=== PATIENT | female | born 1970 | race Caucasian/White ===

== ENCOUNTER 2018-12-16 12:05 | Emergency (ER) | payer MEDICAID, OTHER ==
[~2018-12-16] VITALS: Ht 162.6 cm; Wt 99.8 kg
--- NOTE | 2018-12-16 12:15 | NUR ---
PT A/OX4, B[facility] ([facility] FROM [facility] FOR C/O BLISTER ON R FOOT. UPON ASSESSMENT, PT PRESENTS W/ A BLISTER THAT BURST OPEN. VSS. PT SPO2 RANGING FROM 95-97% ON ROOM AIR DESPITE HAVING ARRIVED ON O2 2 LPM VIA N/C. PT C/O CHRONIC GENERALIZED BODY PAIN DUE TO DZ OF RA AND FIBROMYALGIA.
--- NOTE | 2018-12-16 12:19 | NUR ---
PAGED VIP NEPHROLOGY FOR DR TO DR SALAZAR. AWAITING CALLBACK. ATTEMPT 1.
--- NOTE | 2018-12-16 12:39 | NUR ---
CALLED [facility] FOR PT'S RETURN TO [facility] PICK-UP REFUSED BY RESPRESENTATIVE DUE TO "TOO BUSY". Addendum: 12/16/18 at 1306 by INES ETHEL ARCEO
[2018-12-16] MEDS ORDERED: NEOMY/BACITRA/POLYMYXIN B OINT UD PACKET TP ONE ×2 (12:45→12:50)
[2018-12-16] MEDS ORDERED: LISI-607 PO (12:46)
[2018-12-16] MEDS ORDERED: INSU100V28 (12:46)
[2018-12-16] MEDS ORDERED: GABA-534 PO (12:46)
[2018-12-16] MEDS ORDERED: METF-442 PO (12:46)
[2018-12-16] MEDS ORDERED: OMEP40CA37 PO (12:46)
[2018-12-16] MEDS ORDERED: IRON (12:46)
[2018-12-16] MEDS ORDERED: FOLIC ACID (12:46)
[2018-12-16] MEDS ORDERED: DOCU250C14 PO (12:46)
[2018-12-16] MEDS ORDERED: IBUP-1957 PO (12:46)
[2018-12-16] MEDS ORDERED: INSULIN (12:48)
--- NOTE | 2018-12-16 13:09 | NUR ---
[facility] TRIP #[id number] ETA 1350 SPOKE W/ TEO DISPATCHER.
--- NOTE | 2018-12-16 13:53 | NUR ---
PT WILL BE D/C BACK TO [facility] VIA [facility] ([facility]).
--- NOTE | 2018-12-16 13:55 | NUR ---
Patient discharged to home in stable conditon. Written and verbal after care instructions given. Patient verbalizes understanding of instructions. ALL BELONGINGS W/ PT. PT D/C UNDER CARE OF 2 EMT'S FROM [facility].
[2018-12-16 13:56] VITALS: BP 110/62
== END 2018-12-16 13:57 | disposition home or self-care (01) ==
LOC: ER 12:05
DX: S90.821A Blister (nonthermal), right foot, initial encounter (principal); E11.9 Type 2 diabetes mellitus without complications; Z88.5 Allergy status to narcotic agent; Z88.8 Allergy status to other drugs, medicaments and biological substances; X58.XXXA Exposure to other specified factors, initial encounter; Y93.89 Activity, other specified; Y92.89 Other specified places as the place of occurrence of the external cause; Y99.8 Other external cause status
CPT/HCPCS: A4217; A4663

== ENCOUNTER 2019-02-18 10:40 | Inpatient (IN) | payer OTHER ==
[~2019-02-18] VITALS: Ht 152.4 cm; Wt 95.3 kg
[~2019-02-18 10:40] MED LIST: DOCU250C14 PO; FOLIC ACID; GABA-534 PO; IBUP-1957 PO; INSULIN; IRON; LISI-607 PO; METF-442 PO; OMEP40CA37 PO
[2019-02-18] MEDS ORDERED: IV NORMAL SALINE 1000 ML BAG IV ONE (11:00)
[2019-02-18 11:23] LABS: CARBON DIOXIDE 25 mmol/L (21-32); CHLORIDE 107 mmol/L (98-107); CREATININE 0.6 mg/dL (0.6-1.3); GLUCOSE 143 mg/dL (74-106); POTASSIUM 3.7 mmol/L (3.5-5.1); UREA NITROGEN, BLOOD 18 mg/dL (7-18)
[2019-02-18 11:28] LABS: ALANINE AMINOTRANSFERASE 27 U/L (14-59); ALKALINE PHOSPHATASE 78 U/L (50-136); ASPARTATE AMINOTRANSFERASE 18 U/L (15-37); BILIRUBIN,DIRECT 0.1 mg/dL (0.0-0.2); BILIRUBIN,TOTAL 0.3 mg/dL (0.2-1.0); LIPASE 390 U/L (73-393); TOTAL PROTEIN, SERUM 7.6 g/dL (6.4-8.2)
[2019-02-18 11:32] LABS: BASOPHILS # (AUTO) 0.1 K/uL (0.0-8.0); BASOPHILS % (AUTO) 1.1 % (0.0-2.0); EOSINOPHILS # (AUTO) 0.6 K/uL (0.0-0.7); HEMATOCRIT 38.8 % (31.2-41.9); LYMPHOCYTES # (AUTO) 1.5 K/uL (20.0-40.0); LYMPHOCYTES % (AUTO) 12.7 % (20.5-51.5); MEAN CORPUSCULAR HEMOGLOBIN 29.8 uug (24.7-32.8); MEAN CORPUSCULAR HGB CONC 34 g/dL (32.3-35.6); MEAN CORPUSCULAR VOLUME 89.1 fL (75.5-95.3); MONOCYTES # (AUTO) 0.4 K/uL (2.0-10.0); MONOCYTES % (AUTO) 3.3 % (0.0-11.0); NEUTROPHILS # (AUTO) 9.4 K/uL (1.8-8.9); NEUTROPHILS % (AUTO) 77.9 % (38.5-71.5); PLATELET COUNT (AUTO) 268 K/uL (179-408); RED BLOOD CELL COUNT(AUTO) 4.36 MIL/uL (3.63-4.92); WHITE BLOOD COUNT (AUTO) 12.1 K/uL (3.8-11.8)
[2019-02-18] MEDS ORDERED: FURO-152 PO (11:41)
[2019-02-18] MEDS ORDERED: PSYL0.4C2 PO (11:41)
[2019-02-18] MEDS ORDERED: GABA800T11 PO (11:41)
[2019-02-18] MEDS ORDERED: INSU100I26 SQ (11:41)
[2019-02-18] MEDS ORDERED: ONDA4TAB5 PO (11:41)
[2019-02-18] MEDS ORDERED: LORA10TA7 PO (11:41)
[2019-02-18] MEDS ORDERED: FOLI1TAB16 PO (11:41)
[2019-02-18] MEDS ORDERED: DOCU100C36 PO (11:41)
[2019-02-18] MEDS ORDERED: INSU100I34 SQ ×3 (11:41)
[2019-02-18] MEDS ORDERED: PRED20TA PO (11:41)
[2019-02-18] MEDS ORDERED: LEFL20TA PO (11:41)
[2019-02-18] MEDS ORDERED: MULT1TAB73 PO (11:41)
[2019-02-18] MEDS ORDERED: LISI-603 PO (11:41)
[2019-02-18] MEDS ORDERED: IBUP-1957 PO (11:41)
[2019-02-18] MEDS ORDERED: CYCL30DR EACHEYE (11:41)
[2019-02-18] MEDS ORDERED: SENN-18 PO (11:41)
[2019-02-18] MEDS ORDERED: FERR325T28 PO (11:41)
[2019-02-18] MEDS ORDERED: SIMV20TA6 PO (11:41)
[2019-02-18] MEDS ORDERED: HYDR200T81 PO (11:41)
[2019-02-18] MEDS ORDERED: OMEP20TA5 PO (11:41)
[2019-02-18] MEDS ORDERED: METF-442 PO (11:41)
[2019-02-18] MEDS ORDERED: ATOR40TA PO (11:41)
[2019-02-18] MEDS ORDERED: LACT10SO6 PO (11:41)
[2019-02-18] MEDS ORDERED: DIPH25CA83 PO (11:41)
[2019-02-18] MEDS ORDERED: METH2.5T PO (11:41)
[2019-02-18] MEDS ORDERED: TRAZ-182 PO (11:41)
[2019-02-18] MEDS ORDERED: BISA10SU61 RC (11:46)
[2019-02-18] MEDS ORDERED: MAGN400O6 PO (11:46)
[2019-02-18] MEDS ORDERED: [UNRECOGNIZED DRUG - CODE] MC (11:46)
[2019-02-18] MEDS ORDERED: NA P133E RC (11:46)
[2019-02-18] MEDS ORDERED: LACT-214 PO (11:46)
[2019-02-18] MEDS ORDERED: AMIN30LI2 PO (11:46)
[2019-02-18] MEDS ORDERED: ONDANSETRON 4 MG/2 ML VIAL ONE (12:25)
[2019-02-18] MEDS ORDERED: ONDANSETRON IV *ER 4 MG/2 ML VIAL IV ONE (12:30)
[2019-02-18 15:00] VITALS: BP 114/70
[2019-02-18] MEDS ORDERED: BISACODYL 10 MG SUPP.RECT RC PRN (16:15)
[2019-02-18] MEDS ORDERED: MAGNESIUM HYDROXIDE 30 ML LIQUID UDC PO PRN (16:30)
[2019-02-18] MEDS ORDERED: FLEET ENEMA 133 ML BOTTLE RC PRN (16:30)
[2019-02-18] MEDS ORDERED: ONDANSETRON HCL 4 MG TABLET PO PRN (16:30)
[2019-02-18] MEDS ORDERED: SENNOSIDES 1 TABLET PO PRN (16:30)
[2019-02-18] MEDS ORDERED: HOME MED MISCELLANEOUS XX SCH ×3 (16:45)
[2019-02-18] MEDS: HYDROMORPHONE 1 MG/1 ML DISP.SYRIN IV PRN (16:45)
[2019-02-18] MEDS: FERROUS SULFATE 325 MG TABEC PO SCH (17:00)
[2019-02-18] MEDS: DOCUSATE SODIUM 100 MG CAPSULE PO SCH (17:00)
[2019-02-18] MEDS: METFORMIN HCL 500 MG TABLET PO SCH (18:00)
[2019-02-18] MEDS ORDERED: BLOOD SUGAR DIAGNOSTIC 1 EACH STRIP VI SCH (18:30)
[2019-02-18] MEDS: PANTOPRAZOLE SODIUM 40 MG TABLET.DR PO SCH (20:13)
[2019-02-18] MEDS: ATORVASTATIN 40 MG TABLET PO SCH (20:14)
[2019-02-18] MEDS ORDERED: INSULIN LISPRO 300 UNIT/3 ML VIAL SQ SCH (21:00)
[2019-02-18] MEDS ORDERED: SIMVASTATIN 20 MG TABLET PO SCH (21:00)
[2019-02-18 21:14] VITALS: BP 124/51
[2019-02-18] MEDS ORDERED: IBUPROFEN 800 MG TABLET PO SCH (22:00)
[2019-02-18] MEDS ORDERED: IV 1/2NS 1000 ML 1,000 ML IV PRN (22:15)
[2019-02-18] MEDS: ONDANSETRON 4 MG/2 ML VIAL IV PRN (22:22)
[2019-02-18] MEDS: TRAZODONE 50 MG TABLET PO PRN (22:39)
[2019-02-19] MEDS: diphenhydrAMINE 25 MG CAP PO PRN (03:05)
[2019-02-19] MEDS: HYDROMORPHONE 1 MG/1 ML DISP.SYRIN IV PRN ×2 (03:18→21:07)
[2019-02-19] MEDS: ONDANSETRON 4 MG/2 ML VIAL IV PRN (04:03)
[2019-02-19 05:13] VITALS: BP 158/75
[2019-02-19] MEDS: BLOOD SUGAR DIAGNOSTIC 1 EACH STRIP VI SCH ×6 (05:15→20:58)
[2019-02-19] MEDS: IV D5 1/2 NS 1000 ML 1,000 ML IV PRN (05:26)
[2019-02-19] MEDS: PANTOPRAZOLE SODIUM 40 MG TABLET.DR PO SCH (06:43)
[2019-02-19] MEDS ORDERED: PANTOPRAZOLE SODIUM 40 MG TABLET.DR PO SCH (07:00)
[2019-02-19] MEDS ORDERED: INSULIN LISPRO 300 UNIT/3 ML VIAL SQ SCH ×2 (07:30→16:30)
[2019-02-19] MEDS: METFORMIN HCL 500 MG TABLET PO SCH ×2 (08:00→17:22)
[2019-02-19] MEDS: PROTEIN SUPPLEMENT (PROSTAT) 30 ML LIQUID PO SCH (08:00)
[2019-02-19] MEDS: predniSONE 10 MG TABLET PO SCH (08:00)
[2019-02-19] MEDS: LORATADINE 10 MG TABLET PO SCH (08:49)
[2019-02-19] MEDS: DOCUSATE SODIUM 100 MG CAPSULE PO SCH ×2 (08:50→17:00)
[2019-02-19] MEDS: HYDROXYCHLOROQUINE SULFATE 200 MG TABLET PO SCH (08:50)
[2019-02-19] MEDS: FOLIC ACID 1 MG TABLET PO SCH (08:50)
[2019-02-19] MEDS: LISINOPRIL 20 MG TABLET PO SCH (08:50)
[2019-02-19] MEDS: FERROUS SULFATE 325 MG TABEC PO SCH ×3 (08:50→17:00)
[2019-02-19] MEDS: FUROSEMIDE 20 MG TABLET PO SCH (08:50)
[2019-02-19] MEDS: INSULIN GLARGINE,HUM 300 UNITS/3 ML CARTRIDGE SQ SCH (08:51)
[2019-02-19] MEDS: MULTIVITAMINS,THERAPEUTIC TABLET PO SCH (08:51)
[2019-02-19] MEDS: METOCLOPRAMIDE HCL 10 MG/2 ML VIAL IV PRN ×2 (08:52→18:12)
[2019-02-19] MEDS ORDERED: predniSONE 20 MG TABLET PO SCH (09:00)
[2019-02-19] MEDS: LACTULOSE 20 G/30 ML LIQUID UDC PO SCH ×3 (09:00→17:00)
[2019-02-19 09:17] LABS: BILIRUBIN,DIRECT 0.1 mg/dL (0.0-0.2); BILIRUBIN,TOTAL 0.3 mg/dL (0.2-1.0); CREATININE 0.6 mg/dL (0.6-1.3); POTASSIUM 3.8 mmol/L (3.5-5.1)
[2019-02-19] MEDS: ENSURE CLEAR 240 ML LIQUID (MIX BERRY) PO SCH ×2 (12:00→17:09)
[2019-02-19 12:16] VITALS: BP 136/67
[2019-02-19] MEDS: GABAPENTIN 400 MG CAPSULE PO SCH ×3 (12:33→20:00)
[2019-02-19] MEDS ORDERED: DIATR MEGLU/DIATRIZOATE SODIUM 30 ML SOLUTION ONE (15:21)
[2019-02-19 16:59] VITALS: BP 144/66
[2019-02-19] MEDS ORDERED: DEXTROSE 50% 50 ML DISP.SYRIN IV PRN (18:00)
[2019-02-19] MEDS: INSULIN REGULAR, HUMAN 300 UNIT/3 ML VIAL SQ PRN ×2 (18:07→21:21)
[2019-02-19 19:41] VITALS: BP 135/77
[2019-02-19] MEDS: ATORVASTATIN 40 MG TABLET PO SCH (20:57)
[2019-02-19] MEDS ORDERED: PANTOPRAZOLE SODIUM 40 MG VIAL IV SCH (21:00)
[2019-02-19] MEDS: ESOMEPRAZOLE SODIUM 40 MG VIAL IV SCH (21:05)
[2019-02-19] MEDS ORDERED: LORAZEPAM 2 MG/1 ML VIAL IV PRN (23:00)
[2019-02-20 03:24] VITALS: BP 130/61
[2019-02-20] MEDS: IV D5 1/2 NS 1000 ML 1,000 ML IV PRN (03:31)
[2019-02-20 05:38] LABS: BASOPHILS % (AUTO) 0.7 % (0.0-2.0); EOSINOPHILS # (AUTO) 0.4 K/uL (0.0-0.7); EOSINOPHILS % (AUTO) 5.2 % (0.0-7.0); HEMATOCRIT 37.6 % (31.2-41.9); HEMOGLOBIN 12.6 g/dL (10.9-14.3); LYMPHOCYTES # (AUTO) 1.3 K/uL (20.0-40.0); LYMPHOCYTES % (AUTO) 19.5 % (20.5-51.5); MEAN CORPUSCULAR HEMOGLOBIN 29.8 uug (24.7-32.8); MEAN CORPUSCULAR HGB CONC 33 g/dL (32.3-35.6); MONOCYTES # (AUTO) 0.6 K/uL (2.0-10.0); MONOCYTES % (AUTO) 8.8 % (0.0-11.0); NEUTROPHILS # (AUTO) 4.5 K/uL (1.8-8.9); NEUTROPHILS % (AUTO) 65.8 % (38.5-71.5); PLATELET COUNT (AUTO) 244 K/uL (179-408); RED BLOOD CELL COUNT(AUTO) 4.23 MIL/uL (3.63-4.92); WHITE BLOOD COUNT (AUTO) 6.8 K/uL (3.8-11.8)
[2019-02-20 05:55] LABS: BILIRUBIN,TOTAL 0.2 mg/dL (0.2-1.0); CREATININE 0.6 mg/dL (0.6-1.3); MAGNESIUM 1.7 mg/dL (1.8-2.4); PHOSPHOROUS 2.8 mg/dL (2.5-4.9); POTASSIUM 3.5 mmol/L (3.5-5.1); TOTAL PROTEIN, SERUM 6.9 g/dL (6.4-8.2)
[2019-02-20] MEDS: BLOOD SUGAR DIAGNOSTIC 1 EACH STRIP VI SCH ×4 (06:35→21:16)
[2019-02-20] MEDS: METFORMIN HCL 500 MG TABLET PO SCH ×2 (08:00→17:35)
[2019-02-20] MEDS: GABAPENTIN 400 MG CAPSULE PO SCH ×4 (08:00→20:31)
[2019-02-20] MEDS: PROTEIN SUPPLEMENT (PROSTAT) 30 ML LIQUID PO SCH (08:00)
[2019-02-20] MEDS: ENSURE CLEAR 240 ML LIQUID (MIX BERRY) PO SCH ×3 (08:00→17:00)
[2019-02-20] MEDS: predniSONE 10 MG TABLET PO SCH (08:00)
[2019-02-20] MEDS: LACTULOSE 20 G/30 ML LIQUID UDC PO SCH ×3 (08:57→17:00)
[2019-02-20] MEDS: ESOMEPRAZOLE SODIUM 40 MG VIAL IV SCH ×2 (08:57→20:32)
[2019-02-20] MEDS: FERROUS SULFATE 325 MG TABEC PO SCH ×3 (08:57→17:00)
[2019-02-20] MEDS: FOLIC ACID 1 MG TABLET PO SCH (08:57)
[2019-02-20] MEDS: DOCUSATE SODIUM 100 MG CAPSULE PO SCH ×2 (08:57→17:00)
[2019-02-20] MEDS: MULTIVITAMINS,THERAPEUTIC TABLET PO SCH (08:58)
[2019-02-20] MEDS: FUROSEMIDE 20 MG TABLET PO SCH (08:58)
[2019-02-20] MEDS: HYDROXYCHLOROQUINE SULFATE 200 MG TABLET PO SCH (08:58)
[2019-02-20] MEDS: LISINOPRIL 20 MG TABLET PO SCH (08:58)
[2019-02-20] MEDS: diphenhydrAMINE 25 MG CAP PO PRN (09:07)
[2019-02-20] MEDS: INSULIN GLARGINE,HUM 300 UNITS/3 ML CARTRIDGE SQ SCH (09:11)
[2019-02-20] MEDS: INSULIN REGULAR, HUMAN 300 UNIT/3 ML VIAL SQ PRN ×4 (09:12→21:23)
[2019-02-20 11:30] VITALS: BP 123/68
[2019-02-20] MEDS: HYDROMORPHONE 1 MG/1 ML DISP.SYRIN IV PRN ×2 (14:25→20:32)
[2019-02-20] MEDS: MAGNESIUM SULFATE/D5W 100 ML IV SCH ×2 (15:12→15:46)
[2019-02-20 15:38] VITALS: BP 118/57
[2019-02-20] MEDS: diphenhydrAMINE 50 MG/1 ML VIAL IV PRN (16:29)
[2019-02-20 20:51] VITALS: BP 108/69
[2019-02-20] MEDS: ATORVASTATIN 40 MG TABLET PO SCH (20:51)
[2019-02-20] MEDS: TRAZODONE 50 MG TABLET PO PRN (22:24)
[2019-02-21] MEDS: HYDROMORPHONE 1 MG/1 ML DISP.SYRIN IV PRN ×4 (00:45→21:25)
[2019-02-21 05:32] VITALS: BP 92/53
[2019-02-21 05:35] LABS: BASOPHILS % (AUTO) 0.3 % (0.0-2.0); EOSINOPHILS # (AUTO) 0.6 K/uL (0.0-0.7); EOSINOPHILS % (AUTO) 8.8 % (0.0-7.0); HEMOGLOBIN 12.2 g/dL (10.9-14.3); LYMPHOCYTES # (AUTO) 1.4 K/uL (20.0-40.0); LYMPHOCYTES % (AUTO) 20.5 % (20.5-51.5); MEAN CORPUSCULAR HEMOGLOBIN 30.1 uug (24.7-32.8); MEAN CORPUSCULAR HGB CONC 34 g/dL (32.3-35.6); MEAN CORPUSCULAR VOLUME 88.6 fL (75.5-95.3); MONOCYTES # (AUTO) 0.8 K/uL (2.0-10.0); MONOCYTES % (AUTO) 11.5 % (0.0-11.0); NEUTROPHILS # (AUTO) 3.9 K/uL (1.8-8.9); NEUTROPHILS % (AUTO) 58.9 % (38.5-71.5); PLATELET COUNT (AUTO) 238 K/uL (179-408); RED BLOOD CELL COUNT(AUTO) 4.06 MIL/uL (3.63-4.92); WHITE BLOOD COUNT (AUTO) 6.7 K/uL (3.8-11.8)
[2019-02-21 05:48] LABS: BILIRUBIN,TOTAL 0.2 mg/dL (0.2-1.0); CREATININE 0.6 mg/dL (0.6-1.3); PHOSPHOROUS 3.9 mg/dL (2.5-4.9); POTASSIUM 3.5 mmol/L (3.5-5.1); TOTAL PROTEIN, SERUM 6.7 g/dL (6.4-8.2)
[2019-02-21] MEDS: BLOOD SUGAR DIAGNOSTIC 1 EACH STRIP VI SCH ×4 (06:57→20:58)
[2019-02-21] MEDS: IV D5 1/2 NS 1000 ML 1,000 ML IV PRN (07:05)
[2019-02-21] MEDS: METFORMIN HCL 500 MG TABLET PO SCH ×3 (08:00→18:27)
[2019-02-21] MEDS: METOCLOPRAMIDE HCL 10 MG/2 ML VIAL IV PRN ×2 (08:13→17:52)
[2019-02-21 08:21] VITALS: BP 103/53
[2019-02-21] MEDS: LISINOPRIL 20 MG TABLET PO SCH (08:44)
[2019-02-21] MEDS: FOLIC ACID 1 MG TABLET PO SCH (08:45)
[2019-02-21] MEDS: FERROUS SULFATE 325 MG TABEC PO SCH ×3 (08:45→18:27)
[2019-02-21] MEDS: MULTIVITAMINS,THERAPEUTIC TABLET PO SCH (08:45)
[2019-02-21] MEDS: DOCUSATE SODIUM 100 MG CAPSULE PO SCH ×2 (08:45→18:27)
[2019-02-21] MEDS: ENSURE CLEAR 240 ML LIQUID (MIX BERRY) PO SCH ×3 (08:48→18:00)
[2019-02-21] MEDS: LACTULOSE 20 G/30 ML LIQUID UDC PO SCH ×3 (08:49→18:28)
[2019-02-21] MEDS: LORATADINE 10 MG TABLET PO SCH (08:49)
[2019-02-21] MEDS: GABAPENTIN 400 MG CAPSULE PO SCH ×4 (08:56→21:23)
[2019-02-21] MEDS: predniSONE 10 MG TABLET PO SCH (08:57)
[2019-02-21] MEDS ORDERED: METHOTREXATE SODIUM 2.5 MG TABLET PO SCH (09:00)
[2019-02-21] MEDS: INSULIN REGULAR, HUMAN 300 UNIT/3 ML VIAL SQ PRN ×4 (09:01→21:01)
[2019-02-21] MEDS: HYDROXYCHLOROQUINE SULFATE 200 MG TABLET PO SCH (09:03)
[2019-02-21] MEDS: PROTEIN SUPPLEMENT (PROSTAT) 30 ML LIQUID PO SCH (09:04)
[2019-02-21] MEDS: INSULIN GLARGINE,HUM 300 UNITS/3 ML CARTRIDGE SQ SCH (09:14)
[2019-02-21] MEDS ORDERED: POLYVINYL ALCOHOL OPHT DROPS 15 ML BOTTLE EACHEYE PRN (11:00)
[2019-02-21 11:32] VITALS: BP 102/54
[2019-02-21] MEDS: ESOMEPRAZOLE SODIUM 40 MG VIAL IV SCH ×2 (11:35→20:27)
[2019-02-21] MEDS: PSYLLIUM SEED PACKET PO PRN (13:29)
[2019-02-21 13:35] VITALS: BP 117/57
[2019-02-21 16:20] VITALS: BP 117/67
[2019-02-21] MEDS: ATORVASTATIN 40 MG TABLET PO SCH (20:27)
[2019-02-21] MEDS: diphenhydrAMINE 25 MG CAP PO PRN (20:28)
[2019-02-21 20:29] VITALS: BP 120/47
[2019-02-22 06:02] VITALS: BP 122/52
[2019-02-22] MEDS: HYDROMORPHONE 1 MG/1 ML DISP.SYRIN IV PRN ×3 (06:21→18:50)
[2019-02-22] MEDS: BLOOD SUGAR DIAGNOSTIC 1 EACH STRIP VI SCH ×4 (06:43→20:55)
[2019-02-22] MEDS: METFORMIN HCL 500 MG TABLET PO SCH ×2 (07:37→18:00)
[2019-02-22] MEDS: ENSURE CLEAR 240 ML LIQUID (MIX BERRY) PO SCH ×3 (07:37→17:00)
[2019-02-22] MEDS: GABAPENTIN 400 MG CAPSULE PO SCH ×4 (07:38→20:00)
[2019-02-22] MEDS: PROTEIN SUPPLEMENT (PROSTAT) 30 ML LIQUID PO SCH (07:38)
[2019-02-22] MEDS: predniSONE 10 MG TABLET PO SCH (08:00)
[2019-02-22] MEDS: INSULIN REGULAR, HUMAN 300 UNIT/3 ML VIAL SQ PRN ×2 (08:00→21:13)
[2019-02-22] MEDS: ESOMEPRAZOLE SODIUM 40 MG VIAL IV SCH ×2 (08:01→21:14)
[2019-02-22] MEDS: FOLIC ACID 1 MG TABLET PO SCH (09:00)
[2019-02-22] MEDS: INSULIN GLARGINE,HUM 300 UNITS/3 ML CARTRIDGE SQ SCH (09:00)
[2019-02-22] MEDS: FERROUS SULFATE 325 MG TABEC PO SCH ×3 (09:00→17:00)
[2019-02-22] MEDS: HYDROXYCHLOROQUINE SULFATE 200 MG TABLET PO SCH (09:00)
[2019-02-22] MEDS: DOCUSATE SODIUM 100 MG CAPSULE PO SCH ×2 (09:00→17:00)
[2019-02-22] MEDS: LACTULOSE 20 G/30 ML LIQUID UDC PO SCH ×3 (09:00→17:00)
[2019-02-22] MEDS: LEFLUNOMIDE 10 MG TABLET PO SCH (09:00)
[2019-02-22] MEDS: MULTIVITAMINS,THERAPEUTIC TABLET PO SCH (09:00)
[2019-02-22] MEDS: LISINOPRIL 20 MG TABLET PO SCH (09:00)
[2019-02-22] MEDS: IV D5 1/2 NS 1000 ML 1,000 ML IV PRN (11:15)
[2019-02-22 12:00] VITALS: BP 107/61
[2019-02-22 16:00] VITALS: BP 130/81
[2019-02-22] MEDS ORDERED: VITAMINS A AND D OINT TP PRN (16:45)
[2019-02-22] MEDS: METOCLOPRAMIDE HCL 10 MG/2 ML VIAL IV PRN (18:50)
[2019-02-22 20:00] VITALS: BP 125/61
[2019-02-22] MEDS: MUPIROCIN 2% OINT 22 GM TUBE TP SCH (20:55)
[2019-02-22] MEDS: ATORVASTATIN 40 MG TABLET PO SCH (21:00)
[2019-02-23] MEDS: METOCLOPRAMIDE HCL 10 MG/2 ML VIAL IV PRN ×4 (03:27→22:01)
[2019-02-23 06:15] VITALS: BP 140/73
[2019-02-23] MEDS: BLOOD SUGAR DIAGNOSTIC 1 EACH STRIP VI SCH ×4 (06:38→21:08)
[2019-02-23 07:04] LABS: BILIRUBIN,TOTAL 0.2 mg/dL (0.2-1.0); CREATININE 0.6 mg/dL (0.6-1.3); MAGNESIUM 1.5 mg/dL (1.8-2.4); PHOSPHOROUS 3.1 mg/dL (2.5-4.9); POTASSIUM 3.4 mmol/L (3.5-5.1); TOTAL PROTEIN, SERUM 6.8 g/dL (6.4-8.2)
[2019-02-23 07:21] LABS: BASOPHILS % (AUTO) 0.6 % (0.0-2.0); EOSINOPHILS # (AUTO) 0.6 K/uL (0.0-0.7); EOSINOPHILS % (AUTO) 7.3 % (0.0-7.0); HEMOGLOBIN 12.4 g/dL (10.9-14.3); LYMPHOCYTES # (AUTO) 1.5 K/uL (20.0-40.0); MEAN CORPUSCULAR HEMOGLOBIN 29.6 uug (24.7-32.8); MEAN CORPUSCULAR HGB CONC 34 g/dL (32.3-35.6); MEAN CORPUSCULAR VOLUME 88.2 fL (75.5-95.3); MONOCYTES # (AUTO) 0.7 K/uL (2.0-10.0); MONOCYTES % (AUTO) 8.9 % (0.0-11.0); NEUTROPHILS # (AUTO) 5.3 K/uL (1.8-8.9); NEUTROPHILS % (AUTO) 65.2 % (38.5-71.5); PLATELET COUNT (AUTO) 232 K/uL (179-408); RED BLOOD CELL COUNT(AUTO) 4.19 MIL/uL (3.63-4.92); WHITE BLOOD COUNT (AUTO) 8.2 K/uL (3.8-11.8)
[2019-02-23] MEDS: predniSONE 10 MG TABLET PO SCH (08:00)
[2019-02-23] MEDS: GABAPENTIN 400 MG CAPSULE PO SCH (08:00)
[2019-02-23] MEDS: PROTEIN SUPPLEMENT (PROSTAT) 30 ML LIQUID PO SCH (08:00)
[2019-02-23] MEDS: METFORMIN HCL 500 MG TABLET PO SCH (08:00)
[2019-02-23] MEDS: ENSURE CLEAR 240 ML LIQUID (MIX BERRY) PO SCH ×3 (08:00→17:34)
[2019-02-23] MEDS: LEFLUNOMIDE 10 MG TABLET PO SCH (08:07)
[2019-02-23] MEDS: LACTULOSE 20 G/30 ML LIQUID UDC PO SCH ×3 (08:07→17:00)
[2019-02-23] MEDS: DOCUSATE SODIUM 100 MG CAPSULE PO SCH (08:08)
[2019-02-23] MEDS: LORATADINE 10 MG TABLET PO SCH (08:08)
[2019-02-23] MEDS: FERROUS SULFATE 325 MG TABEC PO SCH (08:08)
[2019-02-23] MEDS: LISINOPRIL 20 MG TABLET PO SCH (08:08)
[2019-02-23] MEDS: FOLIC ACID 1 MG TABLET PO SCH (08:08)
[2019-02-23] MEDS: HYDROXYCHLOROQUINE SULFATE 200 MG TABLET PO SCH (08:08)
[2019-02-23] MEDS: MULTIVITAMINS,THERAPEUTIC TABLET PO SCH (08:09)
[2019-02-23] MEDS: INSULIN GLARGINE,HUM 300 UNITS/3 ML CARTRIDGE SQ SCH (08:10)
[2019-02-23] MEDS: IV D5 1/2 NS 1000 ML 1,000 ML IV PRN (08:53)
[2019-02-23] MEDS: ESOMEPRAZOLE SODIUM 40 MG VIAL IV SCH ×2 (08:58→20:58)
[2019-02-23] MEDS: MUPIROCIN 2% OINT 22 GM TUBE TP SCH ×2 (09:04→20:58)
[2019-02-23] MEDS: INSULIN REGULAR, HUMAN 300 UNIT/3 ML VIAL SQ PRN ×4 (09:19→21:18)
[2019-02-23] MEDS ORDERED: MAGNESIUM SULFATE/D5W 100 ML IV SCH (10:15)
[2019-02-23] MEDS ORDERED: POTASSIUM CHLORIDE 20 MEQ TAB.PRT.SR PO ONE (10:15)
[2019-02-23 12:00] VITALS: BP_SYST 108; BP_SYST 136; BP_DIAS 63; BP_DIAS 72
[2019-02-23] MEDS: POTASSIUM CHLORIDE 50 ML IV SCH ×2 (12:50→16:26)
[2019-02-23] MEDS: ONDANSETRON 4 MG/2 ML VIAL IV PRN ×2 (12:55→21:12)
[2019-02-23] MEDS: diphenhydrAMINE 50 MG/1 ML VIAL IV PRN ×2 (12:55→19:55)
[2019-02-23 15:31] VITALS: BP 134/52
[2019-02-23] MEDS ORDERED: methylPREDNISolone SOD SUCC 40 MG/ML VIAL IV SCH (16:00)
[2019-02-23] MEDS: HYDROMORPHONE 1 MG/1 ML DISP.SYRIN IV PRN ×2 (16:18→22:02)
[2019-02-23 20:00] VITALS: BP 135/74
[2019-02-24] MEDS: TRAZODONE 50 MG TABLET PO PRN (00:09)
[2019-02-24 06:10] VITALS: BP 151/78
[2019-02-24] MEDS: IV D5 1/2 NS 1000 ML 1,000 ML IV PRN (06:22)
[2019-02-24] MEDS: diphenhydrAMINE 50 MG/1 ML VIAL IV PRN (06:26)
[2019-02-24] MEDS: BLOOD SUGAR DIAGNOSTIC 1 EACH STRIP VI SCH ×3 (06:35→16:47)
[2019-02-24] MEDS: INSULIN REGULAR, HUMAN 300 UNIT/3 ML VIAL SQ PRN ×2 (07:49→11:18)
[2019-02-24] MEDS: PROTEIN SUPPLEMENT (PROSTAT) 30 ML LIQUID PO SCH (07:54)
[2019-02-24] MEDS: HYDROMORPHONE 1 MG/1 ML DISP.SYRIN IV PRN (07:58)
[2019-02-24] MEDS: ESOMEPRAZOLE SODIUM 40 MG VIAL IV SCH (08:03)
[2019-02-24] MEDS: ENSURE CLEAR 240 ML LIQUID (MIX BERRY) PO SCH ×2 (08:03→12:25)
[2019-02-24] MEDS: MUPIROCIN 2% OINT 22 GM TUBE TP SCH (08:04)
[2019-02-24] MEDS: METOCLOPRAMIDE HCL 10 MG/2 ML VIAL IV PRN (08:17)
[2019-02-24] MEDS: INSULIN GLARGINE,HUM 300 UNITS/3 ML CARTRIDGE SQ SCH (08:21)
[2019-02-24] MEDS: PSYLLIUM SEED PACKET PO PRN (08:23)
[2019-02-24] MEDS: LACTULOSE 20 G/30 ML LIQUID UDC PO SCH ×2 (08:23→12:25)
[2019-02-24 11:30] VITALS: BP 106/57
[2019-02-24 16:17] VITALS: BP 105/51
[2019-02-24] MEDS ORDERED: PANTOPRAZOLE SODIUM 40 MG TABLET.DR PO SCH (17:00)
== END 2019-02-24 16:55 | DRG 241 ==
LOC: ER 10:40 → MEDSURG3 13:57
PROVIDERS: ADMIT Internal Medicine; ATTEND Internal Medicine
PROC: 05HY33Z Insertion of Infusion Device into Upper Vein, Percutaneous Approach (ICD-10-PCS; principal; 2019-02-21)
DX: K29.70 Gastritis, unspecified, without bleeding (principal); E11.42 Type 2 diabetes mellitus with diabetic polyneuropathy; E11.621 Type 2 diabetes mellitus with foot ulcer; M06.9 Rheumatoid arthritis, unspecified; T39.315A Adverse effect of propionic acid derivatives, initial encounter; T38.0X5A Adverse effect of glucocorticoids and synthetic analogues, initial encounter; Y92.099 Unspecified place in other non-institutional residence as the place of occurrence of the external cause; M79.7 Fibromyalgia; Z89.412 Acquired absence of left great toe; E11.65 Type 2 diabetes mellitus with hyperglycemia; L97.518 Non-pressure chronic ulcer of other part of right foot with other specified severity; Z79.4 Long term (current) use of insulin; Z79.899 Other long term (current) drug therapy; G89.29 Other chronic pain; F32.9 Major depressive disorder, single episode, unspecified; I10 Essential (primary) hypertension
CPT/HCPCS: 36415; 70030-TC; 71045; 74018; 83605; 83690; 83735; 84100; 85025; 85730; 87040; 93005; A4663; G0378; J1170; J1200; J1815; J2060; J2405; J2765; J2920; J3475; J3480; J3490; J7030; J7512; J8610; Q0162; Q0163; Q9963

== ENCOUNTER 2019-04-01 14:43 | Emergency (ER) | payer OTHER ==
[~2019-04-01] VITALS: Ht 157.5 cm; Wt 59.0 kg
[~2019-04-01 14:43] MED LIST changes: +AMIN30LI2 PO; +ATOR40TA PO; +BISA10SU61 RC; +CYCL30DR EACHEYE; +DIPH25CA83 PO; +DOCU100C36 PO; -DOCU250C14 PO; +FERR325T28 PO; +FOLI1TAB16 PO; -FOLIC ACID; +FURO-152 PO; -GABA-534 PO; +GABA800T11 PO; +HYDR200T81 PO; +INSU100I26 SQ; +INSU100I34 SQ; -INSULIN; -IRON; +LACT-214 PO; +LACT10SO6 PO; +LEFL20TA PO; +LISI-603 PO; -LISI-607 PO; +LORA10TA7 PO; +MAGN400O6 PO; +METH2.5T PO; +MULT1TAB73 PO; +NA P133E RC; +OMEP20TA5 PO; -OMEP40CA37 PO; +ONDA4TAB5 PO; +PRED20TA PO; +PSYL0.4C2 PO; +SENN-18 PO; +SIMV20TA6 PO; +TRAZ-182 PO; +[UNRECOGNIZED DRUG - CODE] MC
[2019-04-01] MEDS ORDERED: IBUPROFEN 800 MG TABLET ONE (15:07)
[2019-04-01] MEDS ORDERED: IBUPROFEN 800 MG TABLET PO ONE (15:15)
--- NOTE | 2019-04-01 15:27 | NUR ---
Patient discharged to home in stable conditon. Written and verbal after care instructions given. Patient verbalizes understanding of instructions AND FOLLOW UP CARE NEEDED WITH SECURITY ROVER WITHIN 1WK. ALL BELONGINGS WITH PATIENT, AMBULATORY WITH WALKER. MINIMAL ASSISTANCE NEEDED.
[2019-04-01 15:29] VITALS: BP 118/64
== END 2019-04-01 15:30 | disposition home or self-care (01) ==
LOC: ER 14:45
DX: S99.921A Unspecified injury of right foot, initial encounter (principal); E11.9 Type 2 diabetes mellitus without complications; Z88.2 Allergy status to sulfonamides; Z88.5 Allergy status to narcotic agent; Z88.8 Allergy status to other drugs, medicaments and biological substances; Z79.4 Long term (current) use of insulin; Z79.899 Other long term (current) drug therapy; Z79.891 Long term (current) use of opiate analgesic; X58.XXXA Exposure to other specified factors, initial encounter; Y93.89 Activity, other specified; Y92.89 Other specified places as the place of occurrence of the external cause; Y99.8 Other external cause status
CPT/HCPCS: A4663

== ENCOUNTER 2019-09-15 13:55 | Inpatient (IN) | payer MEDICAID, OTHER ==
[~2019-09-15] VITALS: Ht 157.5 cm; Wt 94.8 kg
[~2019-09-15 13:55] MED LIST changes: +LACT10SO58 PO; -LACT10SO6 PO; +SIMV-46 PO; -SIMV20TA6 PO
[2019-09-15] MEDS ORDERED: KETOROLAC TROMETHAMINE 15 MG INJ IVP ONE (14:15)
[2019-09-15] MEDS ORDERED: HYDROMORPHONE 1 MG/1 ML DISP.SYRIN IV ONE (14:15)
[2019-09-15] MEDS ORDERED: methylPREDNISolone SOD SUCC 125 MG/2 ML VIAL IV ONE (14:30)
--- NOTE | 2019-09-15 14:36 | NUR ---
PT IS IN ROOM #2B. DR FOSTER EVALUATED THE PT.
[2019-09-15 14:48] LABS: CREATININE 0.8 mg/dL (0.6-1.3); POTASSIUM 3.9 mmol/L (3.5-5.1)
[2019-09-15 14:54] LABS: BILIRUBIN,DIRECT 0.1 mg/dL (0.0-0.2); BILIRUBIN,TOTAL 0.3 mg/dL (0.2-1.0); TOTAL PROTEIN, SERUM 7.1 g/dL (6.4-8.2)
[2019-09-15 15:07] LABS: BASOPHILS % (AUTO) 0.2 % (0.0-2.0); EOSINOPHILS # (AUTO) 0.4 K/uL (0.0-0.7); EOSINOPHILS % (AUTO) 2.2 % (0.0-7.0); HEMATOCRIT 34.4 % (31.2-41.9); LYMPHOCYTES # (AUTO) 0.8 K/uL (20.0-40.0); LYMPHOCYTES % (AUTO) 4.1 % (20.5-51.5); MEAN CORPUSCULAR HGB CONC 33 g/dL (32.3-35.6); MONOCYTES # (AUTO) 1.1 K/uL (2.0-10.0); NEUTROPHILS # (AUTO) 16.6 K/uL (1.8-8.9); NEUTROPHILS % (AUTO) 87.5 % (38.5-71.5); PLATELET COUNT (AUTO) 92 K/uL (179-408); RED BLOOD CELL COUNT(AUTO) 3.66 MIL/uL (3.63-4.92); WHITE BLOOD COUNT (AUTO) 18.9 K/uL (3.8-11.8)
[2019-09-15] MEDS ORDERED: methylPREDNISolone SOD SUCC 125 MG/2 ML VIAL ONE (15:14)
[2019-09-15] MEDS ORDERED: HYDROMORPHONE 1 MG/1 ML DISP.SYRIN ONE (15:14)
[2019-09-15] MEDS ORDERED: KETOROLAC TROMETHAMINE 30 MG INJ ONE (15:14)
[2019-09-15] MEDS: CEFEPIME HCL 2 G in IV DEXTROSE 5% 100 ML IV ONE ×2 (16:00→16:25)
[2019-09-15] MEDS ORDERED: VANCOMYCIN IV 1,000 MG in IV DEXTROSE 5% 250 ML IV ONE (16:00)
[2019-09-15 16:23] LABS: HEMOGLOBIN 11.2 g/dL (10.9-14.3); MEAN CORPUSCULAR HEMOGLOBIN 31.2 uug (24.7-32.8)
[2019-09-15] MEDS ORDERED: VANCOMYCIN IV 200 ML ONE (16:27)
[2019-09-15 17:24] LABS: EOSINOPHILS % (MANUAL) 2 % (0-8); LYMPHOCYTES % (MANUAL) 7 % (20-40); MONOCYTES % (MANUAL) 6 % (2-10); NEUTROPHILS % (MANUAL) 85 % (42-75)
--- NOTE | 2019-09-15 19:00 | NUR ---
Nancy esteban in EDM - 09/15/19 at 2012 by UNIQUE Coleen Rodriguez NP accepted pt for admission to [facility], diagnosis: osteomyelitis on right foot.
[2019-09-15 19:39] LABS: *BILIRUBIN,URIN NEGATIVE (NEGATIVE); *BLOOD, URINE NEGATIVE (NEGATIVE); *CLARITY,URINE CLEAR (CLEAR); *COLOR,URINE YELLOW (YELLOW); *KETONES,URINE NEGATIVE (NEGATIVE); *UROBILINOGEN,URINE 0.2 E.U./dl (NORMAL); LEUKOCYTE ESTERASE ,URINE NEGATIVE (NEGATIVE); NITRITE, URINE NEGATIVE (NEGATIVE); UGLUCOSE NEGATIVE (NEGATIVE)
--- NOTE | 2019-09-15 19:48 | NUR ---
Report given to Meseret MORRISSEY Tele.
--- NOTE | 2019-09-15 20:10 | NUR ---
Patient is a 49 year old female admitted from ED to telemetry with diagnosis of osteomyelitis. Patient is alert oriented x 3. O2 attached to patient. Vital signs stable. Tele monitor attached to patient. Patient is sinus rhythm on the tele. Pt. has a left hand 22G, flushing, patent and intact. Patient complains of generalized body pain about 8/10. Will medicate appropriately. Admission orders carried out. Safety precautions in place. Will continue to monitor accordingly.
[2019-09-15 21:01] VITALS: BP 97/46
[2019-09-15] MEDS ORDERED: FLEET ENEMA 133 ML BOTTLE RC PRN (21:45)
[2019-09-15] MEDS ORDERED: BISACODYL 10 MG SUPP.RECT RC PRN (21:45)
[2019-09-15] MEDS ORDERED: MAGNESIUM HYDROXIDE 30 ML LIQUID UDC PO PRN ×2 (21:45→22:00)
[2019-09-15] MEDS ORDERED: [UNRECOGNIZED DRUG - REMARK] PO SCH (21:45)
[2019-09-15] MEDS ORDERED: SENNOSIDES 1 TABLET PO PRN (21:45)
[2019-09-15] MEDS ORDERED: ZOLPIDEM 5 MG TABLET PO PRN (22:00)
[2019-09-15] MEDS ORDERED: DEXTROSE 50% 50 ML DISP.SYRIN IV PRN (22:00)
[2019-09-15] MEDS ORDERED: OXYCODONE/APAP 5-325 MG TABLET PO PRN (22:00)
[2019-09-15] MEDS: IBUPROFEN 800 MG TABLET PO SCH (22:29)
[2019-09-16] MEDS ORDERED: Medication Not On Formulary EA (Gabapentin 800 MG) PO SCH
[2019-09-16] MEDS: ONDANSETRON HCL 4 MG TABLET PO SCH ×4 (00:04→17:47)
[2019-09-16] MEDS: OXYCODONE HCL 5 MG TABLET PO PRN ×5 (00:05→22:15)
[2019-09-16] MEDS ORDERED: PIPERACILLIN/TAZOBACTAM/D5W 100 ML IV ONE (00:06)
[2019-09-16 00:48] VITALS: BP 103/54
[2019-09-16] MEDS: PIPERACILLIN SODIUM/TAZOBACTAM 3.375 G in IV DEXTROSE 5% 50 ML IV SCH ×3 (00:51→11:08)
[2019-09-16 04:51] VITALS: BP 115/60
[2019-09-16] MEDS: IBUPROFEN 800 MG TABLET PO SCH (05:38)
[2019-09-16 06:28] LABS: BASOPHILS % (AUTO) 0.1 % (0.0-2.0); HEMATOCRIT 33.2 % (31.2-41.9); LYMPHOCYTES # (AUTO) 0.5 K/uL (20.0-40.0); LYMPHOCYTES % (AUTO) 3.2 % (20.5-51.5); MEAN CORPUSCULAR HEMOGLOBIN 30.7 uug (24.7-32.8); MEAN CORPUSCULAR HGB CONC 33 g/dL (32.3-35.6); MONOCYTES # (AUTO) 0.4 K/uL (2.0-10.0); MONOCYTES % (AUTO) 2.7 % (0.0-11.0); NEUTROPHILS # (AUTO) 14.8 K/uL (1.8-8.9); PLATELET COUNT (AUTO) 207 K/uL (179-408); RED BLOOD CELL COUNT(AUTO) 3.57 MIL/uL (3.63-4.92); WHITE BLOOD COUNT (AUTO) 15.7 K/uL (3.8-11.8)
[2019-09-16] MEDS: PANTOPRAZOLE SODIUM 40 MG TABLET.DR PO SCH (06:28)
[2019-09-16] MEDS: BLOOD SUGAR DIAGNOSTIC 1 EACH STRIP VI SCH ×4 (06:40→22:04)
[2019-09-16 06:48] LABS: CREATININE 1.3 mg/dL (0.6-1.3); MAGNESIUM 1.8 mg/dL (1.8-2.4); PHOSPHOROUS 4.9 mg/dL (2.5-4.9); POTASSIUM 4.8 mmol/L (3.5-5.1)
--- NOTE | 2019-09-16 07:47 | NUR ---
Received critical lab value for glucose of 382. Called [facility] and spoke to earth moving machine operator who stated he will page of critical Lab value and I gave him phone number to call back to.
[2019-09-16] MEDS ORDERED: Medication Not On Formulary EA (Metformin Hcl 1,000 MG) PO SCH (08:00)
--- NOTE | 2019-09-16 08:00 | NUR ---
Received pt. resting in bed alert oriented x4. Pt. has IV in left hand 22 gauge intact patent saline lock. Pt. is on 2 L NC tolerating well O2 Sat 98. Pt. c/o not being able to urinate as she is not used to wearing diaper. Pt. asymptomatic to elevated blood sugar of 363. Dr. Maloney aware with no new orders. Did not give BP medication as well as digoxin for decreased BP of 96/62. aware and will discontinue meds. stated to bladder scan pt. results of bladder scan is 239. stated to bladder scan again later and if > 500 cc put in saini catheter.
[2019-09-16] MEDS: FOLIC ACID 1 MG TABLET PO SCH (08:09)
[2019-09-16] MEDS: DOCUSATE SODIUM 100 MG CAPSULE PO SCH ×2 (08:09→17:16)
[2019-09-16] MEDS: LORATADINE 10 MG TABLET PO SCH (08:09)
[2019-09-16] MEDS: predniSONE 20 MG TABLET PO SCH (08:10)
[2019-09-16] MEDS: FERROUS SULFATE 325 MG TABEC PO SCH ×3 (08:10→17:16)
[2019-09-16] MEDS: HYDROXYCHLOROQUINE SULFATE 200 MG TABLET PO SCH (08:15)
[2019-09-16] MEDS: MULTIVITAMINS,THERAPEUTIC TABLET PO SCH (08:23)
[2019-09-16] MEDS: METFORMIN HCL 500 MG TABLET PO SCH ×2 (08:25→17:47)
[2019-09-16] MEDS: INSULIN REGULAR, HUMAN 300 UNIT/3 ML VIAL SQ PRN ×4 (08:26→22:06)
[2019-09-16] MEDS ORDERED: Medication Not On Formulary EA (Omeprazole 20 MG) PO SCH (09:00)
[2019-09-16] MEDS ORDERED: FUROSEMIDE 20 MG TABLET PO SCH (09:00)
[2019-09-16] MEDS ORDERED: Medication Not On Formulary EA (Multivitamins (Multivitamin) 1 EACH) PO SCH (09:00)
[2019-09-16] MEDS ORDERED: LEFLUNOMIDE 10 MG PO SCH (09:00)
[2019-09-16] MEDS ORDERED: LISINOPRIL 20 MG TABLET PO SCH (09:00)
[2019-09-16 11:30] VITALS: BP 93/56
[2019-09-16] MEDS: GABAPENTIN 400 MG CAPSULE PO SCH ×3 (12:31→22:02)
[2019-09-16] MEDS ORDERED: VANCOMYCIN IV 1,500 MG in IV NORMAL SALINE 500 ML IV SCH (13:00)
--- NOTE | 2019-09-16 13:28 | NUR ---
Inserted saini catheter as second bladder scan was >500 cc of urine. Urine sent to lab for urinalysis.
[2019-09-16 15:06] LABS: *BILIRUBIN,URIN NEGATIVE (NEGATIVE); *BLOOD, URINE NEGATIVE (NEGATIVE); *CLARITY,URINE CLEAR (CLEAR); *COLOR,URINE YELLOW (YELLOW); *KETONES,URINE NEGATIVE (NEGATIVE); *UROBILINOGEN,URINE 0.2 E.U./dl (NORMAL); LEUKOCYTE ESTERASE ,URINE NEGATIVE (NEGATIVE); NITRITE, URINE NEGATIVE (NEGATIVE); PH,URINE 5.5 (5.0-8.0)
[2019-09-16 15:07] LABS: UGLUCOSE 2+ (NEGATIVE)
[2019-09-16 15:28] VITALS: BP 93/56
[2019-09-16 15:33] VITALS: BP 97/59
[2019-09-16 16:54] LABS: *CREATININE,URINE 41.1 mg/dL (30-125); *URINE TOTAL PROTEIN RANDOM 22.6 mg/dL (<150/24HR)
[2019-09-16] MEDS: SIMVASTATIN 20 MG TABLET PO SCH (17:47)
[2019-09-16] MEDS ORDERED: PIPERACILLIN SODIUM/TAZOBACTAM 3.375 G in IV DEXTROSE 5% 50 ML IV SCH (18:00)
[2019-09-16] MEDS ORDERED: CEFEPIME HCL 2 G in IV DEXTROSE 5% 100 ML IV SCH (18:00)
--- NOTE | 2019-09-16 18:26 | NUR ---
Pt. resting in bed compliant with plan of care and took all medications. Pt. has saini catheter in draining clear yellow urine. Blood sugar elevated and covered with insulin. Oxycodone given twice throughout my shift for generalized pain. Boilermaker Helper came to see pt as well as ID. Boilermaker Helper did debridement of right foot 4th toe ulcer with new order to apply bactroban and dry dressing. Urine sent to lab. Wound culture sent to lab. Safety measures in place. call light within reach. Will continue to monitor pt. and endorse to PM nurse.
[2019-09-16 19:50] VITALS: BP 92/56
--- NOTE | 2019-09-16 20:00 | NUR ---
Patient received into care, laying in bed, watching television. Patient is alert/oriented x4 and has no complaints of pain or discomfort at this time. Patient's IV cath on left hand is patent/intact and running IV ATB started on AM shift. Call light and personal items are within reach at all times. All safety and fall precaution measures are in place. Will continue to monitor.
[2019-09-16] MEDS ORDERED: INSULIN DETEMIR 300 UNIT/3 ML CARTRIDGE SQ SCH (21:00)
[2019-09-16] MEDS: MUPIROCIN 2% OINT 22 GM TUBE TP SCH (22:03)
[2019-09-16] MEDS: TRAZODONE 50 MG TABLET PO SCH (22:03)
[2019-09-16] MEDS: ATORVASTATIN 40 MG TABLET PO SCH (22:03)
[2019-09-16] MEDS: INSULIN GLARGINE,HUM 300 UNITS/3 ML CARTRIDGE SQ SCH (22:06)
[2019-09-17] MEDS: ONDANSETRON HCL 4 MG TABLET PO SCH ×5 (00:26→23:30)
[2019-09-17 04:53] VITALS: BP 95/50
[2019-09-17] MEDS: PANTOPRAZOLE SODIUM 40 MG TABLET.DR PO SCH (06:33)
[2019-09-17] MEDS: HYDROXYCHLOROQUINE SULFATE 200 MG TABLET PO SCH (06:33)
[2019-09-17] MEDS: OXYCODONE HCL 5 MG TABLET PO PRN ×3 (06:34→20:01)
--- NOTE | 2019-09-17 06:35 | NUR ---
TEXTED DR. BAKER FOR MRI APPROVAL.
[2019-09-17] MEDS: BLOOD SUGAR DIAGNOSTIC 1 EACH STRIP VI SCH ×4 (06:43→20:15)
--- NOTE | 2019-09-17 08:00 | NUR ---
Received pt. resting in bed alert oriented x4. Pt. has IV in left hand 22 gauge intact patent saline lock. Pt. has saini catheter in draining clear yellow urine. Bactroban and dry dressing done to R toe. Safety measures in place. call light within reach. will continue to monitor pt.
[2019-09-17] MEDS: FOLIC ACID 1 MG TABLET PO SCH (08:09)
[2019-09-17] MEDS: LORATADINE 10 MG TABLET PO SCH (08:09)
[2019-09-17] MEDS: METFORMIN HCL 500 MG TABLET PO SCH ×2 (08:09→17:42)
[2019-09-17] MEDS: GABAPENTIN 400 MG CAPSULE PO SCH ×4 (08:09→20:14)
[2019-09-17] MEDS: DOCUSATE SODIUM 100 MG CAPSULE PO SCH ×2 (08:09→17:42)
[2019-09-17] MEDS: predniSONE 20 MG TABLET PO SCH (08:10)
[2019-09-17] MEDS: FERROUS SULFATE 325 MG TABEC PO SCH ×3 (08:10→17:00)
[2019-09-17] MEDS: MULTIVITAMINS,THERAPEUTIC TABLET PO SCH (08:10)
[2019-09-17] MEDS: MUPIROCIN 2% OINT 22 GM TUBE TP SCH ×2 (08:14→20:15)
[2019-09-17] MEDS: INSULIN REGULAR, HUMAN 300 UNIT/3 ML VIAL SQ PRN ×4 (08:15→20:16)
[2019-09-17 08:18] LABS: EOSINOPHILS # (AUTO) 0.2 K/uL (0.0-0.7); EOSINOPHILS % (AUTO) 2.7 % (0.0-7.0); HEMOGLOBIN 10.7 g/dL (10.9-14.3); MONOCYTES # (AUTO) 0.3 K/uL (2.0-10.0); MONOCYTES % (AUTO) 3.5 % (0.0-11.0)
[2019-09-17 08:27] LABS: BASOPHILS % (AUTO) 0.5 % (0.0-2.0); LYMPHOCYTES % (AUTO) 22.9 % (20.5-51.5); MEAN CORPUSCULAR HEMOGLOBIN 31.5 uug (24.7-32.8); MEAN CORPUSCULAR HGB CONC 33 g/dL (32.3-35.6); MEAN CORPUSCULAR VOLUME 94.8 fL (75.5-95.3); NEUTROPHILS # (AUTO) 6.2 K/uL (1.8-8.9); NEUTROPHILS % (AUTO) 70.4 % (38.5-71.5); PLATELET COUNT (AUTO) 208 K/uL (179-408); RED BLOOD CELL COUNT(AUTO) 3.38 MIL/uL (3.63-4.92); WHITE BLOOD COUNT (AUTO) 8.7 K/uL (3.8-11.8)
[2019-09-17 08:39] LABS: BILIRUBIN,TOTAL 0.2 mg/dL (0.2-1.0); CREATININE 0.8 mg/dL (0.6-1.3); MAGNESIUM 1.9 mg/dL (1.8-2.4); PHOSPHOROUS 3.1 mg/dL (2.5-4.9); POTASSIUM 4.4 mmol/L (3.5-5.1); TOTAL PROTEIN, SERUM 6.3 g/dL (6.4-8.2)
--- NOTE | 2019-09-17 08:41 | NUR ---
WOUND CARE CONSULT WOUND CARE RECEIVED CONSULT FOR WOUND ON THE RIGHT FOURTH TOE AND AMPUTATION SITE OF LEFT TOES. WOUND CARE WILL DEFER CONSULT AND TREATMENT PLANS TO PODIATRY/WOUND DR OCHOA WHO IS CURRENTLY FOLLOWING THIS PATIENT. PATIENT WITH BIRD AT 17, WILL SEE PRN.
--- NOTE | 2019-09-17 10:44 | NUR ---
Pt. left for MRI to rule out osteomyelits for R foot 4th toe. Pt. requested oxycodone for pain before procedure. Provided pt. with pain medication. Pt. aware of MRI signed paperwork.
[2019-09-17] MEDS: VANCOMYCIN IV 1,500 MG in IV DEXTROSE 5% 500 ML IV SCH (12:47)
[2019-09-17 15:10] VITALS: BP 118/55
--- NOTE | 2019-09-17 15:52 | NUR ---
Clinical Pharmacy Note: Vancomycin Pharmacy to Dose Subjective: To continue vancomycin in this 49 y/o female for indication of osteomyelitis Objective: weight 97kg height 157cm BUN/SCr 26/0.8 Wbc 8.7 temp 98.1 Assessment/Plan Vanco regimen of 1500mg q24 was started yesterday however renal function drastically improved, thus will adjust regimen. Will change to 1500mg q16h for estimated trough of 15.4. first dose today at 1100. Will order trough before 4th scheduled dose (not ordered yet). Will follow
[2019-09-17] MEDS ORDERED: ALBUTEROL SULFATE 2.5 MG/3 ML NEBU ONE (16:02)
[2019-09-17] MEDS ORDERED: IPRATROPIUM BROMIDE 0.5 MG/2.5 ML NEBU ONE (16:03)
[2019-09-17] MEDS: SIMVASTATIN 20 MG TABLET PO SCH (17:43)
[2019-09-17] MEDS: CEFEPIME HCL 2 G in IV DEXTROSE 5% 100 ML IV SCH (17:53)
[2019-09-17] MEDS: TRAZODONE 50 MG TABLET PO SCH (20:14)
[2019-09-17] MEDS: ATORVASTATIN 40 MG TABLET PO SCH (20:14)
[2019-09-17] MEDS: INSULIN GLARGINE,HUM 300 UNITS/3 ML CARTRIDGE SQ SCH (20:15)
[2019-09-17 20:20] VITALS: BP 103/47
[2019-09-18] MEDS: VANCOMYCIN IV 1,500 MG in IV DEXTROSE 5% 500 ML IV SCH ×2 (02:14→19:47)
[2019-09-18] MEDS: OXYCODONE HCL 5 MG TABLET PO PRN ×2 (03:03→12:03)
[2019-09-18] MEDS: CEFEPIME HCL 2 G in IV DEXTROSE 5% 100 ML IV SCH ×2 (05:28→18:38)
[2019-09-18 05:38] VITALS: BP 95/48
[2019-09-18] MEDS: ONDANSETRON HCL 4 MG TABLET PO SCH ×4 (06:11→23:07)
[2019-09-18] MEDS: PANTOPRAZOLE SODIUM 40 MG TABLET.DR PO SCH (06:11)
[2019-09-18] MEDS: HYDROXYCHLOROQUINE SULFATE 200 MG TABLET PO SCH (06:12)
[2019-09-18 06:24] LABS: BASOPHILS % (AUTO) 0.4 % (0.0-2.0); EOSINOPHILS # (AUTO) 0.4 K/uL (0.0-0.7); EOSINOPHILS % (AUTO) 4.1 % (0.0-7.0); HEMOGLOBIN 10.8 g/dL (10.9-14.3); LYMPHOCYTES % (AUTO) 21.1 % (20.5-51.5); MEAN CORPUSCULAR HEMOGLOBIN 30.9 uug (24.7-32.8); MEAN CORPUSCULAR HGB CONC 34 g/dL (32.3-35.6); MEAN CORPUSCULAR VOLUME 91.9 fL (75.5-95.3); MONOCYTES # (AUTO) 0.2 K/uL (2.0-10.0); MONOCYTES % (AUTO) 2.1 % (0.0-11.0); NEUTROPHILS # (AUTO) 6.7 K/uL (1.8-8.9); NEUTROPHILS % (AUTO) 72.3 % (38.5-71.5); PLATELET COUNT (AUTO) 236 K/uL (179-408); RED BLOOD CELL COUNT(AUTO) 3.49 MIL/uL (3.63-4.92); WHITE BLOOD COUNT (AUTO) 9.3 K/uL (3.8-11.8)
--- NOTE | 2019-09-18 06:30 | NUR ---
PATIENT AWAKE IN BED. SLEPT WELL. CALL LIGHT IN REACH. ALL NEEDS ATTENDED. WILL CONTINUE TO MONITOR AND ASSESS.
[2019-09-18] MEDS: BLOOD SUGAR DIAGNOSTIC 1 EACH STRIP VI SCH ×4 (06:33→20:14)
[2019-09-18 06:43] LABS: BILIRUBIN,TOTAL 0.3 mg/dL (0.2-1.0); CREATININE 0.7 mg/dL (0.6-1.3); MAGNESIUM 1.7 mg/dL (1.8-2.4); PHOSPHOROUS 3.4 mg/dL (2.5-4.9); POTASSIUM 3.9 mmol/L (3.5-5.1); TOTAL PROTEIN, SERUM 6.5 g/dL (6.4-8.2)
--- NOTE | 2019-09-18 06:44 | NUR ---
PATIENT C/O CONSTIPATION. PATIENT GIVEN DULCOLAX SUPPOSITORY ORDERED. WILL CONTINUE TO MONITOR AND ASSESS.
--- NOTE | 2019-09-18 08:00 | NUR ---
RECEIVED PATIENT IN BED AWAKE ALERT AND ORIENTED DENIES PAIN OR DISCOMFORTS AT THIS TIME STILL STATED THAT SHE IS CONSTIPATED DESPITE LAXATIVES GIVEN ORDERED WILL NOTIFY THE DOCTOR FOR OTHER INTERVENTIONS CALL LIGHTS AND HER PERSOANL BELONGINGS ARE WITHIN EASY REACH PATIENT INSTRUCTED FOR HELP NEEDED
[2019-09-18] MEDS: DOCUSATE SODIUM 100 MG CAPSULE PO SCH ×2 (08:22→17:16)
[2019-09-18] MEDS: MULTIVITAMINS,THERAPEUTIC TABLET PO SCH (08:22)
[2019-09-18] MEDS: LORATADINE 10 MG TABLET PO SCH (08:22)
[2019-09-18] MEDS: FOLIC ACID 1 MG TABLET PO SCH (08:22)
[2019-09-18] MEDS: METFORMIN HCL 500 MG TABLET PO SCH ×2 (08:23→17:16)
[2019-09-18] MEDS: predniSONE 20 MG TABLET PO SCH (08:25)
[2019-09-18] MEDS: MUPIROCIN 2% OINT 22 GM TUBE TP SCH ×2 (08:25→20:31)
[2019-09-18] MEDS: GABAPENTIN 400 MG CAPSULE PO SCH ×4 (08:25→20:09)
[2019-09-18] MEDS: FERROUS SULFATE 325 MG TABEC PO SCH ×3 (08:30→17:16)
--- NOTE | 2019-09-18 12:00 | NUR ---
C/O PAIN IN HER RIGHT FOOT MEDICATED ORDERED AND HELPFUL
[2019-09-18] MEDS: diphenhydrAMINE 25 MG CAP PO PRN (12:03)
[2019-09-18 12:13] VITALS: BP 107/66
[2019-09-18] MEDS: INSULIN REGULAR, HUMAN 300 UNIT/3 ML VIAL SQ PRN ×2 (12:36→17:26)
--- NOTE | 2019-09-18 13:08 | NUR ---
Clinical Pharmacy Note: Vancomycin Pharmacy to Dose Subjective: To continue vancomycin in this 49 y/o female for indication of osteomyelitis Objective: weight 97kg height 157cm BUN/SCr 14/0.7 Wbc 9.3 temp 99.1 Trough pending tomorrow at 1030 Assessment/Plan Will continue vancomycin 1500mg q16h for estimated trough of 15.4. third dose tonight at 1900. Will order trough before 4th scheduled dose, due tomorrow am at 1030. Will check level when available and adjust as needed. Will follow
[2019-09-18] MEDS: MAGNESIUM SULFATE/D5W 100 ML IV SCH ×2 (16:06→17:29)
[2019-09-18 16:25] VITALS: BP 119/56
[2019-09-18] MEDS: SIMVASTATIN 20 MG TABLET PO SCH (17:16)
--- NOTE | 2019-09-18 18:00 | NUR ---
PATIENT SEEN BY JOSY DATA PROCESSING SYSTEMS CONSULTANT WITH NO NEW ORDERS AT THIS TIME REMAIN ON ATB ORDERED WITH NO ADVERSE OR ALLERGIC REACTIONS AT THIS TIME MADE COMFORTABLE WILL CONTINUE TO OBSERVE.
[2019-09-18 19:50] VITALS: BP 97/54
--- NOTE | 2019-09-18 20:00 | NUR ---
AWAKE, ALERT X3.COMPLAINTS OF BEING HUNGRY.ACCUCHECK DONE 201 BLOOD SUGAR,SNACK GIVEN.IV INFUSING WELL ON RIGHT HAND, RESTING COMFORTABLY.
[2019-09-18] MEDS: ATORVASTATIN 40 MG TABLET PO SCH (20:09)
[2019-09-18] MEDS: TRAZODONE 50 MG TABLET PO SCH (20:09)
[2019-09-18] MEDS: INSULIN GLARGINE,HUM 300 UNITS/3 ML CARTRIDGE SQ SCH (20:21)
[2019-09-19] MEDS: OXYCODONE HCL 5 MG TABLET PO PRN ×3 (05:18→20:32)
[2019-09-19] MEDS: METHOTREXATE SODIUM 2.5 MG TABLET PO SCH ×2 (05:19→06:31)
[2019-09-19] MEDS: CEFEPIME HCL 2 G in IV DEXTROSE 5% 100 ML IV SCH ×2 (05:20→18:11)
[2019-09-19] MEDS: ONDANSETRON HCL 4 MG TABLET PO SCH ×3 (05:22→18:10)
[2019-09-19 05:30] VITALS: BP 146/78
--- NOTE | 2019-09-19 06:01 | NUR ---
REFUSED METHOTREXATE 10 TABLETS OF 2.5, PT CLAIMED SHES GETTING INJECTION.COMPLAINED OF GENERALIZED PAIN , OXY IR GIVEN FOR PAIN, RESTING COMFORTABLY.
[2019-09-19] MEDS: PANTOPRAZOLE SODIUM 40 MG TABLET.DR PO SCH (06:17)
[2019-09-19] MEDS: HYDROXYCHLOROQUINE SULFATE 200 MG TABLET PO SCH (06:18)
[2019-09-19] MEDS: BLOOD SUGAR DIAGNOSTIC 1 EACH STRIP VI SCH ×4 (06:19→20:40)
--- NOTE | 2019-09-19 06:33 | NUR ---
PT TOOK METHTREXATE , EXPLAINED. IN NO ACUTE DISTRESS,
--- NOTE | 2019-09-19 07:30 | NUR ---
Patient calm and comfortable resting in bed upon initial assessment with no signs of distress; patient will continue to be monitored.
[2019-09-19] MEDS: FOLIC ACID 1 MG TABLET PO SCH (08:16)
[2019-09-19] MEDS: GABAPENTIN 400 MG CAPSULE PO SCH ×4 (08:16→20:37)
[2019-09-19] MEDS: DOCUSATE SODIUM 100 MG CAPSULE PO SCH ×2 (08:16→18:10)
[2019-09-19] MEDS: predniSONE 20 MG TABLET PO SCH (08:18)
[2019-09-19] MEDS: MULTIVITAMINS,THERAPEUTIC TABLET PO SCH (08:18)
[2019-09-19] MEDS: LORATADINE 10 MG TABLET PO SCH (08:19)
[2019-09-19] MEDS: METFORMIN HCL 500 MG TABLET PO SCH ×2 (08:19→18:10)
[2019-09-19] MEDS: MUPIROCIN 2% OINT 22 GM TUBE TP SCH ×2 (08:20→20:48)
[2019-09-19] MEDS: FERROUS SULFATE 325 MG TABEC PO SCH ×3 (08:20→18:15)
[2019-09-19] MEDS: INSULIN REGULAR, HUMAN 300 UNIT/3 ML VIAL SQ PRN ×4 (08:56→20:45)
[2019-09-19 10:40] LABS: CREATININE 0.7 mg/dL (0.6-1.3); MAGNESIUM 1.9 mg/dL (1.8-2.4); POTASSIUM 3.9 mmol/L (3.5-5.1)
--- NOTE | 2019-09-19 11:24 | NUR ---
Clinical Pharmacy Note: Vancomycin Pharmacy to Dose Subjective: To continue vancomycin in this 49 y/o female for indication of osteomyelitis Objective: weight 97kg height 157cm BUN/SCr 12/0.7 Wbc 9.3 (09/18) temp 98.2 Trough on 09/19 at 1030am: 13.5 Assessment/Plan Since trough level is 13.5 mcg/ml, will change vancomycin dose to 1500mg IV q14h for estimated trough of 16 mcg/ml. 1st dose today at noon. Will order trough before 4th scheduled dose (not yet ordered) . Will follow
[2019-09-19 12:00] VITALS: BP 111/57
[2019-09-19] MEDS: VANCOMYCIN IV 1,500 MG in IV DEXTROSE 5% 500 ML IV SCH (12:32)
[2019-09-19 16:12] VITALS: BP 106/53
[2019-09-19] MEDS: SIMVASTATIN 20 MG TABLET PO SCH (18:10)
--- NOTE | 2019-09-19 19:13 | NUR ---
Patient calm comfortable through out shift with no signs of distress; patient with stable vital signs ; patient had infiltration of iv new iv placed on left wrist; Picc line nurse then placed picc line on Right upper arm . Patient medication compliant ; Report given to oncoming nurse.
--- NOTE | 2019-09-19 19:30 | NUR ---
Received patient awake in bed, AO x 4. PICC line double lumen in POLA flushing, patent, and intact. Complains of pain level of about 6. Will medicate appropriately. Safety protocols in place, will continue to monitor.
[2019-09-19 20:01] VITALS: BP 97/56
[2019-09-19] MEDS: TRAZODONE 50 MG TABLET PO SCH (20:37)
[2019-09-19] MEDS: ATORVASTATIN 40 MG TABLET PO SCH (20:37)
[2019-09-19] MEDS: INSULIN GLARGINE,HUM 300 UNITS/3 ML CARTRIDGE SQ SCH (20:44)
--- NOTE | 2019-09-19 23:00 | NUR ---
Patient complain of headache, contacted Dr. Vargas and placed ordered Tylenol 650mg q6hr prn.
[2019-09-19] MEDS: ACETAMINOPHEN 325 MG TABLET PO PRN (23:04)
[2019-09-20] MEDS: ONDANSETRON HCL 4 MG TABLET PO SCH ×4 (00:19→17:45)
[2019-09-20] MEDS: VANCOMYCIN IV 1,500 MG in IV DEXTROSE 5% 500 ML IV SCH ×2 (01:26→15:25)
[2019-09-20 05:38] VITALS: BP 111/66
[2019-09-20] MEDS: PANTOPRAZOLE SODIUM 40 MG TABLET.DR PO SCH (06:29)
[2019-09-20] MEDS: CEFEPIME HCL 2 G in IV DEXTROSE 5% 100 ML IV SCH ×2 (06:31→17:44)
[2019-09-20] MEDS: HYDROXYCHLOROQUINE SULFATE 200 MG TABLET PO SCH (06:31)
[2019-09-20] MEDS: ACETAMINOPHEN 325 MG TABLET PO PRN (06:31)
[2019-09-20] MEDS: BLOOD SUGAR DIAGNOSTIC 1 EACH STRIP VI SCH ×4 (06:51→20:50)
--- NOTE | 2019-09-20 07:00 | NUR ---
PATIENT COMPLAIN OF HEADACHE AND NAUSEA/ VOMITING X 1. PATIENT GIVEN TYLENOL AND ZOFRAN. NO OTHER CHANGE IN CONDITION. NEEDS ATTENDED. SAFETY PROTOCOLS IN PLACE. WILL ENDORSE ACCORDINGLY.
[2019-09-20 07:07] LABS: BASOPHILS % (AUTO) 0.6 % (0.0-2.0); EOSINOPHILS # (AUTO) 0.4 K/uL (0.0-0.7); EOSINOPHILS % (AUTO) 6.1 % (0.0-7.0); HEMATOCRIT 32.7 % (31.2-41.9); LYMPHOCYTES # (AUTO) 1.9 K/uL (20.0-40.0); LYMPHOCYTES % (AUTO) 25.5 % (20.5-51.5); MEAN CORPUSCULAR HEMOGLOBIN 31.2 uug (24.7-32.8); MEAN CORPUSCULAR HGB CONC 34 g/dL (32.3-35.6); MEAN CORPUSCULAR VOLUME 92.9 fL (75.5-95.3); MONOCYTES # (AUTO) 0.2 K/uL (2.0-10.0); MONOCYTES % (AUTO) 2.6 % (0.0-11.0); NEUTROPHILS # (AUTO) 4.8 K/uL (1.8-8.9); NEUTROPHILS % (AUTO) 65.2 % (38.5-71.5); PLATELET COUNT (AUTO) 244 K/uL (179-408); RED BLOOD CELL COUNT(AUTO) 3.52 MIL/uL (3.63-4.92); WHITE BLOOD COUNT (AUTO) 7.3 K/uL (3.8-11.8)
[2019-09-20 07:13] LABS: CREATININE 0.9 mg/dL (0.6-1.3); MAGNESIUM 1.8 mg/dL (1.8-2.4); PHOSPHOROUS 3.1 mg/dL (2.5-4.9); POTASSIUM 3.7 mmol/L (3.5-5.1)
--- NOTE | 2019-09-20 07:47 | NUR ---
Clinical Pharmacy Note: Vancomycin Pharmacy to Dose Subjective: To continue vancomycin in this 49 y/o female for indication of osteomyelitis Objective: weight 97kg height 157cm BUN/SCr 16/0.9 Wbc 7.3 temp 98.5 Trough on 09/19 at 1030am: 13.5 Assessment/Plan Will continue same dose of vancomycin 1500mg IV q14h for estimated trough of 16 mcg/ml. 3rd dose today at 1600. Will order trough before 4th scheduled dose (ordered for 09/21 at 0530- RN has been informed to hold 0600 dose if vanco trough level above 20 mcg/ml). Pharmacy shall review the level in am & adjust the agustin if needed. Will follow
[2019-09-20] MEDS: GABAPENTIN 400 MG CAPSULE PO SCH ×4 (08:00→20:45)
[2019-09-20] MEDS: METFORMIN HCL 500 MG TABLET PO SCH ×2 (08:00→17:45)
[2019-09-20] MEDS: MUPIROCIN 2% OINT 22 GM TUBE TP SCH ×2 (08:24→20:58)
[2019-09-20] MEDS: LORATADINE 10 MG TABLET PO SCH (08:28)
[2019-09-20] MEDS: FOLIC ACID 1 MG TABLET PO SCH (08:29)
[2019-09-20] MEDS: DOCUSATE SODIUM 100 MG CAPSULE PO SCH ×2 (08:29→16:21)
[2019-09-20] MEDS: FERROUS SULFATE 325 MG TABEC PO SCH ×3 (08:29→16:21)
[2019-09-20] MEDS: predniSONE 20 MG TABLET PO SCH (08:29)
[2019-09-20] MEDS: MULTIVITAMINS,THERAPEUTIC TABLET PO SCH (08:29)
--- NOTE | 2019-09-20 08:31 | NUR ---
PATIENT IS IN BED AWAKE ALERT AND ORIENTED SHE IS DRY HEAVING WITH SOME SLIMY MUCUS SECRETIONS STATED VERY NAUSEOUS AND UNABLE TO EAT HER BREAKFAST OR TAKE HER MEDICATIONS AT THIS TIME PATIENT [place] [id number] THIS AM WILL CONTINUE TO OBSERVE AND INFORM MD FOR ALTERNATE MEDICATIONS IF SHE CONTINUES TO HAVE NAUSEA AND SICK TO HER STOMACH.EMESIS BASIN AND ALL HER PERSONAL BELONGINGS ARE WITHIN EASY REACH WILL CONTINUE TO OBSERVE.
[2019-09-20 11:33] VITALS: BP 113/65
--- NOTE | 2019-09-20 12:16 | NUR ---
BLOOD SUGAR AT THIS TIME IS 135 WHICH CALLS FOR 2 UNITS REGULAR INSULIN BUT PATIENT AT THIS TIME STATED THAT SHE WILL NOT EAT BECAUSE HER STOMACH STILL FEELS SICK AND FEELING LIKE SHE WILL START TO VOMIT AGAIN SO INSULIN COVERAGE HELD DR HUNT HERE AND NOTIFIED WITH [facility] ORDERS AND NOTED.
[2019-09-20] MEDS: METOCLOPRAMIDE HCL 10 MG/2 ML VIAL IV PRN ×2 (12:26→17:45)
--- NOTE | 2019-09-20 15:11 | NUR ---
CENTRAL SUPPLY AND HARVEST FIELD TICKETER NOTIFIED THAT PATIENT HAS AN ORDERED WRITTEN DAYS AGO FOR PATIENT TO HAVE SURGICAL SHOE RIGHT FOOT.CENTRAL SUPPLY STATED THAT SURGICAL SHOES ARE NOT AVAI;ABLE THERE ARE IN BACK ORDER AT THIS TIME.
[2019-09-20 15:34] VITALS: BP 102/67
[2019-09-20] MEDS: INSULIN REGULAR, HUMAN 300 UNIT/3 ML VIAL SQ PRN (16:20)
[2019-09-20] MEDS: OXYCODONE HCL 5 MG TABLET PO PRN ×2 (16:22→21:49)
[2019-09-20] MEDS: diphenhydrAMINE 25 MG CAP PO PRN (16:24)
--- NOTE | 2019-09-20 16:30 | NUR ---
WEATHERIZATION SPECIALIST JUDEEN HERE TO SEE PATIENT WITH NO NEW ORDERS AWARE OF THE VOMITING TODAY STATED PATIENT WILL CONTINUE ON VANCOMICIN AND MEXIPENEM FOR A TOTAL OF 6 WEEKS COUNTING FROM WHEN IT WAS STARTED HERE.
[2019-09-20] MEDS: SIMVASTATIN 20 MG TABLET PO SCH (17:45)
--- NOTE | 2019-09-20 18:00 | NUR ---
SURGICAL SHOE HERE FROM THE [facility] AND GIVEN TO PATIENT ORDERED PATIENT STATED NAUSEA AND VOMITING IS BETTER ABLE TO TOLERATE HER DINNER AND MEDICATIONS WILL CONTINUE TO OBSERVE.
--- NOTE | 2019-09-20 18:33 | NUR ---
D/C PLANNING PROCESS PUMPER STATED THAT SHE IS STILL WAITING FOR PATIENTS INSURANCE TO PROVIDE LIST OF THEIR APPROAVED FACILITIES MOST LIKELY THE LIST WILL BE AVAILABLE TOMORROW.PATIENT AWARE.
--- NOTE | 2019-09-20 19:15 | NUR ---
RECEIVED PATIENT IN BED AWAKE. AO X 4. PICC LINE IN POLA BOTH LUMENS FLUSHING, PATENT, AND INTACT. NO SHORTNESS OF BREATH NOTED. RESPIRATIONS NORMAL. COMPLAINTS OF PAIN, WILL MEDICATE APPROPRIATELY. WILL CONTINUE TO MONITOR PATIENT.
[2019-09-20 19:57] VITALS: BP 93/52
[2019-09-20] MEDS: ATORVASTATIN 40 MG TABLET PO SCH (20:45)
[2019-09-20] MEDS: TRAZODONE 50 MG TABLET PO SCH (20:45)
[2019-09-20] MEDS: INSULIN GLARGINE,HUM 300 UNITS/3 ML CARTRIDGE SQ SCH (21:00)
[2019-09-20] MEDS ORDERED: INSULIN GLARGINE,HUM 300 UNITS/3 ML CARTRIDGE SQ SCH (21:45)
[2019-09-21] MEDS: ONDANSETRON HCL 4 MG TABLET PO SCH ×4 (01:13→17:02)
[2019-09-21 04:57] VITALS: BP 120/69
[2019-09-21] MEDS: CEFEPIME HCL 2 G in IV DEXTROSE 5% 100 ML IV SCH ×2 (05:02→17:01)
[2019-09-21 06:14] LABS: A/G RATIO 0.9 (0.7-1.7); ALBUMIN 2.8 g/dL (2.9-4.4); ALPHA-1-GLOBULIN 0.3 g/dL (0.0-0.4); ALPHA-2-GLOBULIN 0.8 g/dL (0.4-1.0); BETA GLOBULIN 1.2 g/dL (0.7-1.3); GAMMA GLOBULIN 0.8 g/dL (0.4-1.8); GLOBULIN, TOTAL 3.2 g/dL (2.2-3.9); M-SPIKE Not Observed g/dL (Not Observed)
--- NOTE | 2019-09-21 06:20 | NUR ---
PT SLEPT INTERMITTENTLY. SITTER AT BEDSIDE. PT COMPLIANT WITH CARE.PRESCRIBED MEDICATION GIVEN AND PT TOLERATED IT WELL. SAFETY AND COMFORT PROVIDED. WILL ENDORSE TO INCOMING NURSE FOR CONTINUITY OF CARE.
[2019-09-21] MEDS: HYDROXYCHLOROQUINE SULFATE 200 MG TABLET PO SCH (06:34)
[2019-09-21] MEDS: BLOOD SUGAR DIAGNOSTIC 1 EACH STRIP VI SCH ×4 (06:34→21:59)
[2019-09-21] MEDS: PANTOPRAZOLE SODIUM 40 MG TABLET.DR PO SCH (06:34)
[2019-09-21] MEDS: VANCOMYCIN IV 1,500 MG in IV DEXTROSE 5% 500 ML IV SCH ×2 (06:35→18:10)
[2019-09-21] MEDS: INSULIN REGULAR, HUMAN 300 UNIT/3 ML VIAL SQ PRN ×3 (07:58→22:03)
--- NOTE | 2019-09-21 08:00 | NUR ---
ASHA PATEL DISH TECHNICIAN HERE TO SEE PATIENT WITH NO NEW ORDERS AT THIS TIME.
[2019-09-21] MEDS: LORATADINE 10 MG TABLET PO SCH (08:44)
[2019-09-21] MEDS: DOCUSATE SODIUM 100 MG CAPSULE PO SCH ×2 (08:44→16:35)
[2019-09-21] MEDS: MULTIVITAMINS,THERAPEUTIC TABLET PO SCH (08:44)
[2019-09-21] MEDS: FERROUS SULFATE 325 MG TABEC PO SCH ×3 (08:44→16:35)
[2019-09-21] MEDS: METFORMIN HCL 500 MG TABLET PO SCH ×2 (08:44→17:01)
[2019-09-21] MEDS: GABAPENTIN 400 MG CAPSULE PO SCH ×4 (08:45→21:11)
[2019-09-21] MEDS: FOLIC ACID 1 MG TABLET PO SCH (08:45)
[2019-09-21] MEDS: predniSONE 20 MG TABLET PO SCH (08:46)
[2019-09-21] MEDS: MUPIROCIN 2% OINT 22 GM TUBE TP SCH ×2 (08:46→21:52)
--- NOTE | 2019-09-21 09:00 | NUR ---
DR HUNT HERE TO SEE PATIENT D/C PLANNING PATIENT DENIES NAUSEA OR VOMITING STATED FEELS BETTER AT THE MOMENT MD STATED THAT HE WAS STILL WAITING FOR PATIENTS INSURANCE TO APPROVE HER TO BE TRANSFERED TO THE [facility] AND PATIENT EXPRESSED UNDERSTANDING.
[2019-09-21] MEDS: diphenhydrAMINE 50 MG CAPSULE PO PRN ×2 (09:34→22:20)
[2019-09-21] MEDS: OXYCODONE HCL 5 MG TABLET PO PRN (09:35)
[2019-09-21 11:19] VITALS: BP 107/63
[2019-09-21] MEDS: METOCLOPRAMIDE HCL 10 MG/2 ML VIAL IV PRN (11:24)
--- NOTE | 2019-09-21 11:25 | NUR ---
PATIENT VOMITED ABOUT 500 ML OF FLUIDS GREENISH IN COLOR WITH PARTLY UNDIGESTED FOOD PARTICLES MEDICATED WITH REGALAN ORDERED MADE COMFORTABLE WILL CONTINUE TO OBSERVE.
--- NOTE | 2019-09-21 11:42 | NUR ---
Clinical Pharmacy Note: Vancomycin Pharmacy to Dose Subjective: To continue vancomycin in this 49 y/o female for indication of osteomyelitis Objective: weight 97kg height 157cm BUN/SCr 16/0.9 (09/20) Wbc 7.3(09/20) temp 98.7 Trough on 09/19 at 1030am: 13.5 Trough on 09/21 at 0530: 14.8 Assessment/Plan Since trough is subtherapeutic, will increase dose to 1500mg IV every 13hrs(second dose today at 1900) and draw trough by 4th dose(not ordered yet) for expected trough around 16. Will monitor daily.
[2019-09-21] MEDS ORDERED: diphenhydrAMINE 25 MG CAP PO PRN (14:15)
[2019-09-21 15:41] VITALS: BP 117/66
[2019-09-21] MEDS: SIMVASTATIN 20 MG TABLET PO SCH (17:01)
--- NOTE | 2019-09-21 17:45 | NUR ---
TOLERATED DINNER WITH NO EMESIS AT THIS TIME DENIES PAIN OR DISCOMFORTS TX TO RIGHT FOOT 4TH TOE IN PROGRESS ORDERED MADE COMFORTABLE WILL CONTINUE TO OBSERVE.
[2019-09-21 20:37] VITALS: BP 113/69
[2019-09-21] MEDS: ATORVASTATIN 40 MG TABLET PO SCH (21:11)
[2019-09-21] MEDS: TRAZODONE 50 MG TABLET PO SCH (21:11)
[2019-09-21] MEDS: ACETAMINOPHEN 325 MG TABLET PO PRN (21:52)
[2019-09-21] MEDS: INSULIN GLARGINE,HUM 300 UNITS/3 ML CARTRIDGE SQ SCH (22:01)
[2019-09-22] MEDS: ONDANSETRON HCL 4 MG TABLET PO SCH ×5 (00:15→23:11)
[2019-09-22] MEDS: CEFEPIME HCL 2 G in IV DEXTROSE 5% 100 ML IV SCH ×2 (05:56→18:06)
[2019-09-22] MEDS: HYDROXYCHLOROQUINE SULFATE 200 MG TABLET PO SCH (06:16)
[2019-09-22] MEDS: PANTOPRAZOLE SODIUM 40 MG TABLET.DR PO SCH (06:16)
[2019-09-22 06:22] VITALS: BP 110/69
[2019-09-22] MEDS: BLOOD SUGAR DIAGNOSTIC 1 EACH STRIP VI SCH ×4 (06:38→22:36)
--- NOTE | 2019-09-22 07:26 | NUR ---
PATIENT SLEPT WELL LAST NIGHT, WOUND DRESSING CHANGED, IN NO ACUTE DISTRESS. NO SOB, PATIENT IS STALE. ENDORSED TO AM NURSE.
--- NOTE | 2019-09-22 07:30 | NUR ---
Patient calmly resting in bed with no signs of distress; patient with stable vital signs ; patient will continue to be monitored.
[2019-09-22] MEDS: VANCOMYCIN IV 1,500 MG in IV DEXTROSE 5% 500 ML IV SCH ×2 (09:08→21:00)
[2019-09-22] MEDS: FERROUS SULFATE 325 MG TABEC PO SCH ×3 (09:10→18:06)
[2019-09-22] MEDS: DOCUSATE SODIUM 100 MG CAPSULE PO SCH ×2 (09:11→18:04)
[2019-09-22] MEDS: MULTIVITAMINS,THERAPEUTIC TABLET PO SCH (09:11)
[2019-09-22] MEDS: LORATADINE 10 MG TABLET PO SCH (09:12)
[2019-09-22] MEDS: predniSONE 20 MG TABLET PO SCH (09:12)
[2019-09-22] MEDS: GABAPENTIN 400 MG CAPSULE PO SCH ×4 (09:25→21:46)
[2019-09-22] MEDS: METFORMIN HCL 500 MG TABLET PO SCH ×2 (09:25→18:05)
[2019-09-22] MEDS: MUPIROCIN 2% OINT 22 GM TUBE TP SCH ×2 (09:26→22:37)
[2019-09-22] MEDS: FOLIC ACID 1 MG TABLET PO SCH (09:26)
--- NOTE | 2019-09-22 11:02 | NUR ---
Clinical Pharmacy Note: Vancomycin Pharmacy to Dose Subjective: To continue vancomycin in this 49 y/o female for indication of osteomyelitis Objective: weight 97kg height 157cm BUN/SCr 16/0.9 (09/20) Wbc 7.3(09/20) temp 98 Trough on 09/19 at 1030am: 13.5 Trough on 09/21 at 0530: 14.8 Trough pending tonight at 2029 Assessment/Plan Will continue adjusted regimen of vanco 1500mg IV every 13hrs(third dose today at 0800) for expected trough around 16. Will draw trough by 4th dose, due tonight at 2029. RN endorsed to hold if trough >20. Will check level in am and adjust as needed. Will monitor daily.
[2019-09-22 11:09] VITALS: BP 122/64
[2019-09-22] MEDS: OXYCODONE HCL 5 MG TABLET PO PRN ×2 (11:18→23:24)
[2019-09-22] MEDS: INSULIN REGULAR, HUMAN 300 UNIT/3 ML VIAL SQ PRN ×3 (12:48→22:19)
[2019-09-22 15:13] VITALS: BP 93/49
[2019-09-22] MEDS: SIMVASTATIN 20 MG TABLET PO SCH (18:06)
--- NOTE | 2019-09-22 18:35 | NUR ---
Patient calm and comfortable through out shift; patient had episodes of vomiting towards end of shift ; patient given schedule zofran with a reduction of vomiting afterwards. Patient with stable vital signs ; patient medication compliant; Report given to oncoming nurse.
[2019-09-22 20:00] VITALS: BP 106/63
[2019-09-22] MEDS: diphenhydrAMINE 50 MG CAPSULE PO PRN (21:46)
[2019-09-22] MEDS: ATORVASTATIN 40 MG TABLET PO SCH (21:46)
[2019-09-22] MEDS: TRAZODONE 50 MG TABLET PO SCH (21:46)
[2019-09-22] MEDS: ACETAMINOPHEN 325 MG TABLET PO PRN (21:46)
[2019-09-22] MEDS: INSULIN GLARGINE,HUM 300 UNITS/3 ML CARTRIDGE SQ SCH (22:19)
[2019-09-22] MEDS: METOCLOPRAMIDE HCL 10 MG/2 ML VIAL IV PRN (23:11)
--- NOTE | 2019-09-23 00:30 | NUR ---
received to care at 2229, pleasant upon approach. PRN reglan was given for nausea, at 2310. PRn OXYir was given for 8/10 generalized pain, at 2323. as of 29, she appears to be asleep. no distress noted. call light is in reach. will continue to monitor closely.
[2019-09-23 04:00] VITALS: BP 104/69
[2019-09-23] MEDS: CEFEPIME HCL 2 G in IV DEXTROSE 5% 100 ML IV SCH (05:26)
[2019-09-23] MEDS: ONDANSETRON HCL 4 MG TABLET PO SCH ×3 (05:47→18:10)
[2019-09-23] MEDS: METOCLOPRAMIDE HCL 10 MG/2 ML VIAL IV PRN ×3 (06:02→18:19)
[2019-09-23] MEDS: BLOOD SUGAR DIAGNOSTIC 1 EACH STRIP VI SCH ×4 (06:06→20:10)
[2019-09-23] MEDS: OXYCODONE HCL 5 MG TABLET PO PRN (06:24)
[2019-09-23 06:30] LABS: BASOPHILS % (AUTO) 0.3 % (0.0-2.0); EOSINOPHILS # (AUTO) 0.5 K/uL (0.0-0.7); EOSINOPHILS % (AUTO) 5.8 % (0.0-7.0); HEMATOCRIT 29.7 % (31.2-41.9); HEMOGLOBIN 10.1 g/dL (10.9-14.3); LYMPHOCYTES # (AUTO) 1.4 K/uL (20.0-40.0); LYMPHOCYTES % (AUTO) 15.7 % (20.5-51.5); MEAN CORPUSCULAR HGB CONC 34 g/dL (32.3-35.6); MEAN CORPUSCULAR VOLUME 91.3 fL (75.5-95.3); MONOCYTES # (AUTO) 0.5 K/uL (2.0-10.0); MONOCYTES % (AUTO) 5.6 % (0.0-11.0); NEUTROPHILS # (AUTO) 6.5 K/uL (1.8-8.9); NEUTROPHILS % (AUTO) 72.6 % (38.5-71.5); PLATELET COUNT (AUTO) 221 K/uL (179-408); RED BLOOD CELL COUNT(AUTO) 3.25 MIL/uL (3.63-4.92); WHITE BLOOD COUNT (AUTO) 8.9 K/uL (3.8-11.8)
[2019-09-23] MEDS: PANTOPRAZOLE SODIUM 40 MG TABLET.DR PO SCH (06:45)
[2019-09-23] MEDS: HYDROXYCHLOROQUINE SULFATE 200 MG TABLET PO SCH (06:46)
[2019-09-23 06:58] LABS: CREATININE 1.5 mg/dL (0.6-1.3); PHOSPHOROUS 3.7 mg/dL (2.5-4.9)
--- NOTE | 2019-09-23 07:06 | NUR ---
pt had one episode of clear emesis, approximately 200 ml, even after having routine zofran, and PRN reglan, this morning. report given to oncoming shift.
[2019-09-23] MEDS: METFORMIN HCL 500 MG TABLET PO SCH ×3 (08:00→18:10)
[2019-09-23] MEDS: GABAPENTIN 400 MG CAPSULE PO SCH ×5 (08:00→20:06)
[2019-09-23] MEDS: FERROUS SULFATE 325 MG TABEC PO SCH ×3 (09:00→18:10)
[2019-09-23] MEDS: DOCUSATE SODIUM 100 MG CAPSULE PO SCH ×2 (09:00→18:10)
--- NOTE | 2019-09-23 09:16 | NUR ---
Clinical Pharmacy Note: Vancomycin Pharmacy to Dose Subjective: To continue vancomycin in this 49 y/o female for indication of osteomyelitis Objective: weight 97kg height 157cm BUN/SCr 14/1.5 Wbc 8.9 temp 98.8 Trough on 09/19 at 1030am: 13.5 Trough on 09/21 at 0530: 14.8 Trough on 09/22 at 2030: 32 Assessment/Plan Since trough is over 20 and scr is trending up, will hold dose and draw random in am to dose per level for now. Rx will check level for further dosing.
[2019-09-23] MEDS: MUPIROCIN 2% OINT 22 GM TUBE TP SCH ×2 (09:31→20:29)
[2019-09-23 11:30] VITALS: BP 118/67
[2019-09-23] MEDS: MULTIVITAMINS,THERAPEUTIC TABLET PO SCH (13:20)
[2019-09-23] MEDS: LORATADINE 10 MG TABLET PO SCH (13:20)
[2019-09-23] MEDS: FOLIC ACID 1 MG TABLET PO SCH (13:20)
[2019-09-23] MEDS: predniSONE 20 MG TABLET PO SCH (13:20)
[2019-09-23] MEDS: ACETAMINOPHEN 325 MG TABLET PO PRN (13:29)
[2019-09-23 15:39] VITALS: BP 119/79
[2019-09-23] MEDS: INSULIN REGULAR, HUMAN 300 UNIT/3 ML VIAL SQ PRN ×2 (18:01→20:18)
[2019-09-23] MEDS: SIMVASTATIN 20 MG TABLET PO SCH (18:10)
--- NOTE | 2019-09-23 18:48 | NUR ---
Patient had two episodes of clear emesis at beginning of shift; medicated appropriately with PRN reglan x2. Patient verbalizes that she is still nauseous at this time but not as much as earlier in the morning. Patient is AAOx4. In no acute distress. PICC on POLA intact and patent. Huynh in place and dwelling well. All needs attended. Will endorse care accordingly.
[2019-09-23 19:40] VITALS: BP 99/61
--- NOTE | 2019-09-23 19:45 | NUR ---
RECEIVED PATIENT AWAKE IN BED. AO X 4. RIGHT UA PICC LINE DOUBLE LUMEN FLUSHING, PATENT, AND INTACT. PATIENT DOES NOT STATE SHE IS IN PAIN AT THE MOMENT. ADKINS DRAINING AND IN PLACE. NO SOB NOTED. IMMEDIATE NEEDS ATTENDED. WILL CONTINUE TO MONITOR PATIENT.
[2019-09-23] MEDS: TRAZODONE 50 MG TABLET PO SCH (20:07)
[2019-09-23] MEDS: ATORVASTATIN 40 MG TABLET PO SCH (20:07)
[2019-09-23] MEDS: INSULIN GLARGINE,HUM 300 UNITS/3 ML CARTRIDGE SQ SCH (20:17)
[2019-09-24] MEDS: METOCLOPRAMIDE HCL 10 MG/2 ML VIAL IV PRN (01:24)
[2019-09-24] MEDS: ONDANSETRON HCL 4 MG TABLET PO SCH ×4 (01:24→17:19)
[2019-09-24 05:45] VITALS: BP 107/65
[2019-09-24] MEDS ORDERED: CEFEPIME HCL 2 G in IV DEXTROSE 5% 100 ML IV SCH (06:00)
--- NOTE | 2019-09-24 06:01 | NUR ---
PATIENT SLEPT WELL THROUGHOUT THE NIGHT. NO COMPLAINTS OF PAIN. DID HOWEVER COMPLAIN OF NAUSEA/VOMITING. PICC LINE FLUSHING, PATENT, AND IN TACT. ADKINS DRAINING BY GRAVITY. SAFETY PRECAUTIONS IN PLACE. IMMEDIATE NEEDS ATTENDED, WILL ENDORSE TO ONCOMING SHIFT.
[2019-09-24] MEDS: PANTOPRAZOLE SODIUM 40 MG TABLET.DR PO SCH (06:11)
[2019-09-24] MEDS: HYDROXYCHLOROQUINE SULFATE 200 MG TABLET PO SCH (06:12)
[2019-09-24 06:45] LABS: BASOPHILS % (AUTO) 0.4 % (0.0-2.0); EOSINOPHILS # (AUTO) 0.4 K/uL (0.0-0.7); EOSINOPHILS % (AUTO) 5.6 % (0.0-7.0); HEMATOCRIT 28.9 % (31.2-41.9); HEMOGLOBIN 9.7 g/dL (10.9-14.3); LYMPHOCYTES % (AUTO) 13.6 % (20.5-51.5); MEAN CORPUSCULAR HEMOGLOBIN 31.4 uug (24.7-32.8); MEAN CORPUSCULAR HGB CONC 34 g/dL (32.3-35.6); MEAN CORPUSCULAR VOLUME 93.6 fL (75.5-95.3); MONOCYTES # (AUTO) 0.5 K/uL (2.0-10.0); MONOCYTES % (AUTO) 7.2 % (0.0-11.0); NEUTROPHILS # (AUTO) 5.5 K/uL (1.8-8.9); NEUTROPHILS % (AUTO) 73.2 % (38.5-71.5); PLATELET COUNT (AUTO) 212 K/uL (179-408); RED BLOOD CELL COUNT(AUTO) 3.08 MIL/uL (3.63-4.92); WHITE BLOOD COUNT (AUTO) 7.5 K/uL (3.8-11.8)
[2019-09-24] MEDS: BLOOD SUGAR DIAGNOSTIC 1 EACH STRIP VI SCH ×3 (06:47→16:17)
[2019-09-24 07:01] LABS: BILIRUBIN,TOTAL 0.2 mg/dL (0.2-1.0); CREATININE 1.5 mg/dL (0.6-1.3); MAGNESIUM 2.2 mg/dL (1.8-2.4); POTASSIUM 4.6 mmol/L (3.5-5.1); TOTAL PROTEIN, SERUM 6.5 g/dL (6.4-8.2)
[2019-09-24] MEDS: FERROUS SULFATE 325 MG TABEC PO SCH ×3 (08:29→16:25)
[2019-09-24] MEDS: METFORMIN HCL 500 MG TABLET PO SCH ×2 (08:29→17:19)
[2019-09-24] MEDS: GABAPENTIN 400 MG CAPSULE PO SCH ×3 (08:29→16:25)
[2019-09-24] MEDS: MULTIVITAMINS,THERAPEUTIC TABLET PO SCH (08:30)
[2019-09-24] MEDS: LORATADINE 10 MG TABLET PO SCH (08:30)
[2019-09-24] MEDS: FOLIC ACID 1 MG TABLET PO SCH (08:30)
[2019-09-24] MEDS: DOCUSATE SODIUM 100 MG CAPSULE PO SCH ×2 (08:30→16:25)
[2019-09-24] MEDS: predniSONE 20 MG TABLET PO SCH (08:30)
[2019-09-24] MEDS: MUPIROCIN 2% OINT 22 GM TUBE TP SCH (08:37)
[2019-09-24 11:42] VITALS: BP 107/67
--- NOTE | 2019-09-24 15:55 | NUR ---
Report called to [facility] [phone] given to Glo, patient being discharged and planned picked up at 1800.
[2019-09-24 15:58] VITALS: BP 108/58
[2019-09-24] MEDS: INSULIN REGULAR, HUMAN 300 UNIT/3 ML VIAL SQ PRN (16:24)
[2019-09-24] MEDS: ACETAMINOPHEN 325 MG TABLET PO PRN (16:25)
[2019-09-24] MEDS: SIMVASTATIN 20 MG TABLET PO SCH (17:19)
--- NOTE | 2019-09-24 18:32 | NUR ---
Patient resting in bed, ready for discharge. Awaiting transportation. Will endorse care to oncoming shift.
--- NOTE | 2019-09-24 19:45 | NUR ---
PATIENT DISCHARGED TO [facility] PER PRIVATE CAR. LEFT FACILITY IN STABLE CONDITION.
== END 2019-09-24 19:45 | DRG 344 ==
LOC: EDSEX → ER 13:55 → MERGE 13:55 → TELE3 19:45 → MEDSURG3 09-16 15:22
PROVIDERS: ADMIT Internal Medicine; ATTEND Internal Medicine
PROC: 0JBQ0ZZ Excision of Right Foot Subcutaneous Tissue and Fascia, Open Approach (ICD-10-PCS; principal; 2019-09-16)
DX: E11.69 Type 2 diabetes mellitus with other specified complication (principal); M86.171 Other acute osteomyelitis, right ankle and foot; N17.0 Acute kidney failure with tubular necrosis; J96.01 Acute respiratory failure with hypoxia; E11.621 Type 2 diabetes mellitus with foot ulcer; E11.65 Type 2 diabetes mellitus with hyperglycemia; M06.9 Rheumatoid arthritis, unspecified; Z79.4 Long term (current) use of insulin; Z88.2 Allergy status to sulfonamides; L03.031 Cellulitis of right toe; L97.518 Non-pressure chronic ulcer of other part of right foot with other specified severity; E78.5 Hyperlipidemia, unspecified; E66.01 Morbid (severe) obesity due to excess calories; Z68.38 Body mass index [BMI] 38.0-38.9, adult; Z79.899 Other long term (current) drug therapy; Z86.14 Personal history of Methicillin resistant Staphylococcus aureus infection; Z89.429 Acquired absence of other toe(s), unspecified side; M79.7 Fibromyalgia; M13.0 Polyarthritis, unspecified; K59.00 Constipation, unspecified; L29.9 Pruritus, unspecified; J45.909 Unspecified asthma, uncomplicated; K29.70 Gastritis, unspecified, without bleeding; I15.2 Hypertension secondary to endocrine disorders; F32.9 Major depressive disorder, single episode, unspecified; E11.51 Type 2 diabetes mellitus with diabetic peripheral angiopathy without gangrene
CPT/HCPCS: 36415; 70030-TC; 71045; 73660; 73721; 76770; 83605; 83690; 83735; 83970; 84100; 84155; 84156; 84165; 84300; 85025; 87040; 87070; 87086; 93005; A4663; C1758; G0378; J0692; J1170; J1815; J1885; J2543; J2765; J2930; J3370; J3475; J3590; J7040; J7060; J7512; J8610; Q0162; Q0163

== ENCOUNTER 2020-01-07 15:29 | Emergency (ER) | payer OTHER ==
[~2020-01-07] VITALS: Ht 157.5 cm; Wt 90.7 kg
[~2020-01-07 15:29] MED LIST changes: -METH2.5T PO; +METH2.5T SQ; +MULT-594 PO; -MULT1TAB73 PO
[2020-01-07] MEDS ORDERED: NEOMY/BACITRA/POLYMYXIN B OINT UD PACKET TP ONE ×2 (15:45→15:59)
[2020-01-07] MEDS ORDERED: CLINDAMYCIN HCL 150 MG CAPSULE PO ONE (15:45)
[2020-01-07] MEDS ORDERED: CLINDAMYCIN HCL 300 MG CAPSULE ONE (15:59)
--- NOTE | 2020-01-07 16:17 | NUR ---
Patient was seen by MD. Medication given as ordered. Ointment applied, bandaid applied. I called [facility]. trip number [id number]
--- NOTE | 2020-01-07 18:25 | NUR ---
[facility] CALLED TO STATE THEY WILL BE LATE. PATIENT NOTIFIED.
--- NOTE | 2020-01-07 19:04 | NUR ---
[facility] HERE TO TRANSPORT PATIENT BACK TO [facility]
== END 2020-01-07 19:05 | disposition home or self-care (01) ==
LOC: ER 15:35
DX: L03.032 Cellulitis of left toe (principal); E11.9 Type 2 diabetes mellitus without complications; Z88.2 Allergy status to sulfonamides; Z79.899 Other long term (current) drug therapy
CPT/HCPCS: A4663

== ENCOUNTER 2020-03-11 20:39 | Inpatient (IN) | payer OTHER ==
[~2020-03-11] VITALS: Ht 157.5 cm; Wt 107.7 kg
[2020-03-11] MEDS ORDERED: VANCOMYCIN IV 1,000 MG in IV DEXTROSE 5% 250 ML IV ONE (21:15)
[2020-03-11 21:29] LABS: BASOPHILS % (AUTO) 0.4 % (0.0-2.0); EOSINOPHILS # (AUTO) 0.4 K/uL (0.0-0.7); EOSINOPHILS % (AUTO) 2.6 % (0.0-7.0); LYMPHOCYTES # (AUTO) 1.5 K/uL (20.0-40.0); LYMPHOCYTES % (AUTO) 11.4 % (20.5-51.5); MEAN CORPUSCULAR HEMOGLOBIN 32.5 uug (24.7-32.8); MEAN CORPUSCULAR HGB CONC 35 g/dL (32.3-35.6); MEAN CORPUSCULAR VOLUME 93.8 fL (75.5-95.3); MONOCYTES # (AUTO) 0.7 K/uL (2.0-10.0); MONOCYTES % (AUTO) 5.4 % (0.0-11.0); NEUTROPHILS # (AUTO) 10.9 K/uL (1.8-8.9); NEUTROPHILS % (AUTO) 80.2 % (38.5-71.5); PLATELET COUNT (AUTO) 244 K/uL (179-408); RED BLOOD CELL COUNT(AUTO) 3.09 MIL/uL (3.63-4.92); WHITE BLOOD COUNT (AUTO) 13.6 K/uL (3.8-11.8)
[2020-03-11] MEDS ORDERED: SIME80TA30 PO (21:35)
[2020-03-11] MEDS ORDERED: HYPR15DR9 OP (21:35)
[2020-03-11] MEDS ORDERED: POLY30DR OP (21:35)
[2020-03-11] MEDS ORDERED: LATA2.5D2 EACHEYE (21:35)
[2020-03-11] MEDS ORDERED: SILV20CR3 TOP (21:35)
[2020-03-11] MEDS ORDERED: CYCL30DR OP (21:35)
[2020-03-11] MEDS ORDERED: ACET-2605 PO (21:35)
[2020-03-11] MEDS ORDERED: MULT1TAB64 PO (21:35)
[2020-03-11] MEDS ORDERED: LISI-607 PO (21:35)
[2020-03-11] MEDS ORDERED: ATOR40TA PO (21:35)
[2020-03-11] MEDS ORDERED: [UNRECOGNIZED DRUG - OTHER] MM (21:35)
[2020-03-11] MEDS ORDERED: [UNRECOGNIZED DRUG - OTHER] (21:35)
[2020-03-11] MEDS ORDERED: LIDOCAINE MM (21:35)
[2020-03-11] MEDS ORDERED: SERT50TA PO (21:35)
[2020-03-11] MEDS ORDERED: D-ME473S17 PO (21:36)
[2020-03-11] MEDS ORDERED: CRAN250C PO (21:36)
[2020-03-11] MEDS ORDERED: ALBU18HF2 IH (21:36)
[2020-03-11 21:45] LABS: BILIRUBIN,TOTAL 0.2 mg/dL (0.2-1.0); CREATININE 1.2 mg/dL (0.6-1.3); POTASSIUM 4.9 mmol/L (3.5-5.1); TOTAL PROTEIN, SERUM 7.2 g/dL (6.4-8.2)
[2020-03-11] MEDS ORDERED: VANCOMYCIN IV 200 ML ONE (21:47)
--- NOTE | 2020-03-11 22:39 | NUR ---
DR. GONCALVES ON PANEL CALL WITH DR. CASANOVA
--- NOTE | 2020-03-12 01:06 | NUR ---
called for bed
--- NOTE | 2020-03-12 01:58 | NUR ---
Report given to Edilma MORRISSEY
--- NOTE | 2020-03-12 02:00 | NUR ---
Received report from GHANSHYAM Perdomo for this VIP group patient.
--- NOTE | 2020-03-12 03:30 | NUR ---
Pt. admitted to [facility] Room 216 , under care of Dr. Partida Belongs List completed. All belongings with pt In stable condition No s/s of distress Denies pain at this time Repiration even and unlabored
[2020-03-12 03:33] VITALS: BP 118/59
--- NOTE | 2020-03-12 03:40 | NUR ---
ADMISSION NOTES PATIENT RECEIVED INTO CARE VIA RNEY FROM ER. PATIENT IS ALERT/ORIENTED X4 AND HAS NO S/S OF ACUTE DISTRESS OR DISCOMFORT NOTED OR OBSERVED BY THIS NURSE AND NOT COMPLAINTS OF PAIN OR DISCOMFORT AT THIS TIME. PATIENT HAS A LEFT AC 22G SALINE LOCK IV CATHETER WHICH IS PATENT AND INTACT. PMH CONFIRMED WITH PATIENT. ALL SAFETY, FALL, ALLERGY, AND ISOLATION PRECAUTIONS ARE IN PLACE. CALL LIGHT AND PERSONAL ITEMS ARE WITHIN REACH AT ALL TIMES. WILL CONTINUE TO MONITOR AND ASSESS.
--- NOTE | 2020-03-12 04:32 | NUR ---
HOME MEDS FAXED TO PHARMACY BY THIS NURSE
[2020-03-12] MEDS ORDERED: PIPERACILLIN SODIUM/TAZOBACTAM 3.375 G in IV DEXTROSE 5% 50 ML IV ONE (05:00)
[2020-03-12] MEDS ORDERED: PIPERACILLIN/TAZOBACTAM/D5W 50 ML IV ONE (05:40)
--- NOTE | 2020-03-12 06:00 | NUR ---
PATIENT SLEPT WELL FOLLOWING ADMISSION TO UNIT. ALL PRESCRIBED MEDICATIONS PROVIDED ORDERED AND TOLERATED WELL BY PATIENT WITH NO ADVERSE SIDE EFFECTS NOTED/OBSERVED BY THIS NURSE OR VERBALIZED BY PATIENT. ALL SAFETY, FALL, ALLERGY, AND ISOLATION PRECAUTIONS REMAIN IN PLACE. CALL LIGHT AND PERSONAL ITEMS REMAIN WITHIN REACH AT ALL TIMES.
[2020-03-12] MEDS ORDERED: DEXTROSE 50% 50 ML DISP.SYRIN IV PRN (06:15)
[2020-03-12] MEDS ORDERED: ONDANSETRON HCL 4 MG TABLET PO PRN (06:30)
[2020-03-12] MEDS ORDERED: HOME MED MISCELLANEOUS XX SCH ×3 (06:30→08:45)
[2020-03-12] MEDS ORDERED: [UNRECOGNIZED DRUG - OTHER] PO SCH (06:30)
[2020-03-12] MEDS ORDERED: PROMETH HCL PO SCH (06:30)
[2020-03-12] MEDS ORDERED: SENNOSIDES 1 TABLET PO PRN (06:30)
[2020-03-12] MEDS ORDERED: MAGNESIUM HYDROXIDE 30 ML LIQUID UDC PO PRN (06:30)
[2020-03-12] MEDS ORDERED: BISACODYL 10 MG SUPP.RECT RC PRN (06:30)
[2020-03-12] MEDS ORDERED: FLEET ENEMA 133 ML BOTTLE RC PRN (06:30)
[2020-03-12] MEDS ORDERED: PSYLLIUM SEED PACKET PO PRN (06:30)
[2020-03-12] MEDS ORDERED: D METHORPHAN HB PO SCH (06:30)
[2020-03-12] MEDS ORDERED: ALBUTEROL SULFATE 8 GM HFA.AER.AD IH PRN (06:30)
[2020-03-12] MEDS: BLOOD SUGAR DIAGNOSTIC 1 EACH STRIP VI SCH ×4 (06:45→21:59)
[2020-03-12] MEDS: PANTOPRAZOLE SODIUM 40 MG TABLET.DR PO SCH ×2 (06:57→17:14)
[2020-03-12] MEDS ORDERED: BLOOD SUGAR DIAGNOSTIC 1 EACH STRIP VI SCH (07:30)
[2020-03-12 08:00] VITALS: BP 114/40
[2020-03-12] MEDS ORDERED: GUAIFENESIN/DEXTROMETHORPHAN 5 ML UDC PO PRN (08:15)
[2020-03-12] MEDS: MULTIVIT, IRON, MIN NO. 8, FA TABLET PO SCH (08:53)
[2020-03-12] MEDS: FOLIC ACID 1 MG TABLET PO SCH (08:53)
[2020-03-12] MEDS: SERTRALINE HCL 50 MG TABLET PO SCH (08:53)
[2020-03-12] MEDS: LACTULOSE 20 G/30 ML LIQUID UDC PO SCH ×4 (08:54→17:15)
[2020-03-12] MEDS: DOCUSATE SODIUM 100 MG CAPSULE PO SCH ×2 (08:54→21:07)
[2020-03-12] MEDS: FERROUS SULFATE 325 MG TABEC PO SCH ×3 (08:54→17:14)
[2020-03-12] MEDS: POLYVINYL ALCOHOL OPHT DROPS 15 ML BOTTLE EACHEYE SCH ×4 (08:54→22:15)
[2020-03-12] MEDS: METFORMIN HCL 500 MG TABLET PO SCH ×2 (08:54→17:14)
[2020-03-12] MEDS: predniSONE 10 MG TABLET PO SCH (08:55)
[2020-03-12] MEDS: LISINOPRIL 5 MG TABLET PO SCH (08:57)
[2020-03-12] MEDS ORDERED: Medication Not On Formulary EA (Cranberry Extract (Cranberry) 250 MG) PO SCH (09:00)
[2020-03-12] MEDS ORDERED: METHOTREXATE SODIUM 2.5 MG TABLET PO SCH (09:00)
[2020-03-12] MEDS ORDERED: LIDOCAINE VISCUS 2% 15 ML UDC MM PRN (09:00)
[2020-03-12] MEDS ORDERED: predniSONE 20 MG TABLET PO SCH (09:00)
[2020-03-12] MEDS ORDERED: HYDROXYCHLOROQUINE SULFATE 200 MG TABLET PO SCH (09:00)
[2020-03-12] MEDS: HYDROXYCHLOROQUINE SULFATE 200 MG TABLET PO SCH (09:02)
[2020-03-12] MEDS: ACETAMINOPHEN ES 500 MG TABLET PO PRN ×2 (09:17→18:57)
[2020-03-12] MEDS ORDERED: INSU100I26 SQ (10:29)
[2020-03-12] MEDS: GABAPENTIN 400 MG CAPSULE PO SCH ×3 (11:38→21:07)
[2020-03-12] MEDS: PIPERACILLIN SODIUM/TAZOBACTAM 3.375 G in IV DEXTROSE 5% 50 ML IV SCH ×2 (11:38→17:17)
--- NOTE | 2020-03-12 12:04 | NUR ---
Clinical Pharmacy Note: Vancomycin Dosing per Pharmacy Subjective: Vancomycin IV to start on this 49 yo female patient for osteomyelitis Objective: BUN 18/Scr 1.2 (03/11) WBC 13.6 (03/11) Temperature 98.2 ht 157 cm wt 107.7 kg Assessment/Plan: Patient received vanco 1 gm IVPB x1 in ED on 03/11 at 2200. Will start vancomycin 1500mg IVPB Q20hr for a predicted vancomycin steady state trough level of 17 mcg/ml. 1st dose today at 1500. Will draw a vancomycin trough level prior to the 4th dose of vancomycin (not ordered yet). Will monitor renal function and adjust vancomycin dose, if needed, should renal function change significantly. Will follow daily.
[2020-03-12] MEDS: IBUPROFEN 800 MG TABLET PO SCH ×2 (13:10→21:07)
[2020-03-12] MEDS: diphenhydrAMINE 25 MG CAP PO PRN ×2 (13:44→22:31)
[2020-03-12 14:44] LABS: BASOPHILS % (AUTO) 0.1 % (0.0-2.0); EOSINOPHILS % (AUTO) 0.3 % (0.0-7.0); HEMATOCRIT 29.3 % (31.2-41.9); HEMOGLOBIN 9.9 g/dL (10.9-14.3); LYMPHOCYTES # (AUTO) 0.8 K/uL (20.0-40.0); LYMPHOCYTES % (AUTO) 5.6 % (20.5-51.5); MEAN CORPUSCULAR HGB CONC 34 g/dL (32.3-35.6); MEAN CORPUSCULAR VOLUME 94.5 fL (75.5-95.3); MONOCYTES # (AUTO) 0.5 K/uL (2.0-10.0); NEUTROPHILS # (AUTO) 13.6 K/uL (1.8-8.9); PLATELET COUNT (AUTO) 244 K/uL (179-408)
[2020-03-12 14:56] LABS: CREATININE 1.5 mg/dL (0.6-1.3); MAGNESIUM 2.1 mg/dL (1.8-2.4); PHOSPHOROUS 4.3 mg/dL (2.5-4.9); POTASSIUM 5.6 mmol/L (3.5-5.1)
[2020-03-12] MEDS ORDERED: VANCOMYCIN IV 1,500 MG in IV DEXTROSE 5% 500 ML IV SCH (15:00)
[2020-03-12 15:17] VITALS: BP 133/56
[2020-03-12] MEDS: INSULIN REGULAR, HUMAN 300 UNIT/3 ML VIAL SQ PRN ×2 (17:10→22:00)
[2020-03-12] MEDS ORDERED: INSULIN LISPRO 1000 UNITS/10 ML VIAL(HUMALOG) SQ SCH ×2 (18:00→21:00)
[2020-03-12 20:00] VITALS: BP 111/47
--- NOTE | 2020-03-12 20:00 | NUR ---
Received patient awake and alert. Patient shows no signs or symptoms of distress at this time. Vital signs stable. Denies having any shortness of breath and is afebrile. Bed set to lowest position. Call light within reach. Will continue to monitor patient.
--- NOTE | 2020-03-12 20:39 | NUR ---
Patient complains of having heartburn and is requesting for medication. Vital signs stable. No medication in EMAR for heartburn. Dr. Nat Partida paged. Awaiting call back.
[2020-03-12] MEDS ORDERED: POLYVINYL ALCOHOL OPHT DROPS 15 ML BOTTLE EACHEYE SCH (21:00)
[2020-03-12] MEDS: LATANOPROST OPHT DROP 2.5 ML BOTTLE EACHEYE SCH (21:07)
[2020-03-12] MEDS: MINERAL OIL/PETROLAT OPHT OINT 3.5 GM TUBE EACHEYE SCH (21:07)
[2020-03-12] MEDS: ATORVASTATIN 40 MG TABLET PO SCH (21:07)
[2020-03-12] MEDS: CALCIUM CARBONATE 500 MG TAB.CHEW PO PRN (21:08)
[2020-03-12] MEDS ORDERED: CEFEPIME HCL 1 G in IV DEXTROSE 5% 50 ML IV SCH (22:00)
[2020-03-12] MEDS: INSULIN GLARGINE,HUM 300 UNITS/3 ML CARTRIDGE SQ SCH (22:04)
[2020-03-12] MEDS: SIMETHICONE 80 MG TAB.CHEW PO PRN (22:04)
[2020-03-12] MEDS: TRAZODONE 50 MG TABLET PO PRN (22:04)
[2020-03-12] MEDS: SILVER SULFADIAZINE 1% CREAM 50 GM TP SCH (22:15)
[2020-03-12] MEDS: CEFEPIME HCL 1 G in IV DEXTROSE 5% 50 ML IV SCH (22:15)
[2020-03-13 04:00] VITALS: BP 108/62
[2020-03-13] MEDS: IBUPROFEN 800 MG TABLET PO SCH (06:02)
[2020-03-13] MEDS: PANTOPRAZOLE SODIUM 40 MG TABLET.DR PO SCH ×2 (06:02→17:20)
[2020-03-13 06:23] LABS: CREATININE 1.5 mg/dL (0.6-1.3); POTASSIUM 4.6 mmol/L (3.5-5.1)
--- NOTE | 2020-03-13 06:52 | NUR ---
Patient shows no signs or symptoms of distress throughout the shift. Vital signs stable. Denies having any shortness of breath and was afebrile throughout the night. Bed set to lowest position. Call light within reach. Will endorse patient to day shift nurse in stable condition.
[2020-03-13] MEDS: BLOOD SUGAR DIAGNOSTIC 1 EACH STRIP VI SCH ×4 (07:30→21:39)
[2020-03-13] MEDS: METFORMIN HCL 500 MG TABLET PO SCH ×2 (08:00→17:48)
--- NOTE | 2020-03-13 08:00 | NUR ---
Pt is in no acute distress. Pt alert and oriented x 4. Call light is within reach.
[2020-03-13] MEDS ORDERED: HYDROXYCHLOROQUINE SULFATE 200 MG TABLET PO SCH (09:00)
[2020-03-13] MEDS: INSULIN GLARGINE,HUM 300 UNITS/3 ML CARTRIDGE SQ SCH ×2 (09:00→21:48)
[2020-03-13] MEDS: MULTIVIT, IRON, MIN NO. 8, FA TABLET PO SCH (09:03)
[2020-03-13] MEDS: FOLIC ACID 1 MG TABLET PO SCH (09:03)
[2020-03-13] MEDS: FERROUS SULFATE 325 MG TABEC PO SCH ×3 (09:04→17:20)
[2020-03-13] MEDS: LISINOPRIL 5 MG TABLET PO SCH (09:04)
[2020-03-13] MEDS: DOCUSATE SODIUM 100 MG CAPSULE PO SCH ×2 (09:04→21:14)
[2020-03-13] MEDS: GABAPENTIN 300 MG CAPSULE PO SCH ×3 (09:04→21:14)
[2020-03-13] MEDS: LACTULOSE 20 G/30 ML LIQUID UDC PO SCH ×3 (09:05→17:20)
[2020-03-13] MEDS: CEFEPIME HCL 1 G in IV DEXTROSE 5% 50 ML IV SCH ×2 (10:07→21:18)
[2020-03-13] MEDS: SERTRALINE HCL 50 MG TABLET PO SCH (10:07)
[2020-03-13] MEDS: predniSONE 10 MG TABLET PO SCH (10:08)
[2020-03-13] MEDS: ACETAMINOPHEN ES 500 MG TABLET PO PRN ×2 (10:08→17:43)
[2020-03-13] MEDS: POLYVINYL ALCOHOL OPHT DROPS 15 ML BOTTLE EACHEYE SCH ×4 (10:09→21:15)
[2020-03-13] MEDS: SILVER SULFADIAZINE 1% CREAM 50 GM TP SCH ×2 (10:09→21:00)
--- NOTE | 2020-03-13 10:29 | NUR ---
WOUND CARE CONSULT: REVIEWED CHART,NURSING DOCUMENTATION AND PHOTOS WHICH SHOW RT SECOND TOE REDNESS AND EDEMA, PRESENT ON ADMISSION. RECOMMEND DPM CONSULT. DR BETTENCOURT NOTIFIED OF CONSULT REQUEST. CURRENT BIRD SCORE IS 21.
--- NOTE | 2020-03-13 10:54 | NUR ---
Clinical Pharmacy Note: Vancomycin Dosing per Pharmacy Subjective: Vancomycin IV to continue on this 49 yo female patient for osteomyelitis Objective: BUN 22/Scr 1.5 WBC 15 Temperature 98.0 ht 157 cm wt 107.7 kg Assessment/Plan: As renal function has decreased, adjusted regimen to vancomycin 1500mg q22hr, 2nd dose today at 1300. Will order trough before 4th scheduled dose (not ordered yet). Will also continue to follow renal function and dose per level or adjust regimen as needed. Will follow
[2020-03-13 12:00] VITALS: BP 130/45
[2020-03-13] MEDS: INSULIN REGULAR, HUMAN 300 UNIT/3 ML VIAL SQ PRN ×3 (12:40→21:47)
[2020-03-13] MEDS: VANCOMYCIN IV 1,500 MG in IV DEXTROSE 5% 500 ML IV SCH (12:41)
[2020-03-13] MEDS: SIMETHICONE 80 MG TAB.CHEW PO PRN ×2 (12:58→17:43)
--- NOTE | 2020-03-13 14:14 | NUR ---
TEXTED DR. BAKER FOR MRI APPROVAL.
[2020-03-13 16:00] VITALS: BP 121/52
[2020-03-13] MEDS ORDERED: IBUPROFEN 800 MG TABLET PO SCH (17:00)
[2020-03-13] MEDS: diphenhydrAMINE 25 MG CAP PO PRN (17:44)
--- NOTE | 2020-03-13 18:30 | NUR ---
Pt denies any c/o pain. Pt is for MRI but awaiting covid neg result prior to MRI being done. Call light is within reach.
--- NOTE | 2020-03-13 19:00 | NUR ---
Patient received in bed, awake and alert x4. Patient denies any acute distress or pain. Patient in room air saturating WNL. Patient's vitals stable. Safety measures in place. Bed low and locked position. Call light within reach. Will continue with the plan of care.
[2020-03-13 20:00] VITALS: BP 118/67
[2020-03-13] MEDS: MINERAL OIL/PETROLAT OPHT OINT 3.5 GM TUBE EACHEYE SCH (21:00)
[2020-03-13] MEDS: ATORVASTATIN 40 MG TABLET PO SCH (21:14)
--- NOTE | 2020-03-13 21:47 | NUR ---
Patient's blood sugar was 254. Refused 6 units of regular insulin. Only took the prescribed 40 units of lantus, per patient,Lantus is the only insulin she takes at night and not the regular insulin. Also, advised the patient to eat before going to bed, provided her some snacks. Patient agreed.
[2020-03-13] MEDS: LATANOPROST OPHT DROP 2.5 ML BOTTLE EACHEYE SCH (22:25)
[2020-03-13] MEDS: TRAZODONE 50 MG TABLET PO PRN (23:25)
[2020-03-14 04:00] VITALS: BP 117/69
[2020-03-14] MEDS: diphenhydrAMINE 25 MG CAP PO PRN ×4 (04:09→22:59)
[2020-03-14] MEDS: ACETAMINOPHEN ES 500 MG TABLET PO PRN (04:09)
--- NOTE | 2020-03-14 04:28 | NUR ---
TYLENOL 650MG NOT GIVEN. PT REFUSED, PREFERRED IBUPROFEN. Addendum: 03/14/20 at 0434 by QUENTIN TARANGO RN tylenol 1000mg not 650mg
[2020-03-14] MEDS: CALCIUM CARBONATE 500 MG TAB.CHEW PO PRN ×3 (04:35→18:00)
[2020-03-14] MEDS: PANTOPRAZOLE SODIUM 40 MG TABLET.DR PO SCH ×2 (06:01→16:27)
[2020-03-14] MEDS: SIMETHICONE 80 MG TAB.CHEW PO PRN ×3 (06:02→22:27)
[2020-03-14] MEDS: BLOOD SUGAR DIAGNOSTIC 1 EACH STRIP VI SCH ×4 (06:34→21:34)
--- NOTE | 2020-03-14 06:56 | NUR ---
Patient slept intermittently throughout the night. Patient is awake and denies any acute distress or pain at this time. Patient is afebrile and vitals are stable. Prescribed medications were given, patient was compliant. Needs and comfort care provided. Safety measures in place. Will endorse to the oncoming nurse accordingly.
[2020-03-14 07:21] LABS: BASOPHILS # (AUTO) 0.1 K/uL (0.0-8.0); BASOPHILS % (AUTO) 0.4 % (0.0-2.0); EOSINOPHILS # (AUTO) 0.5 K/uL (0.0-0.7); EOSINOPHILS % (AUTO) 3.9 % (0.0-7.0); HEMATOCRIT 28.3 % (31.2-41.9); HEMOGLOBIN 9.6 g/dL (10.9-14.3); LYMPHOCYTES # (AUTO) 1.9 K/uL (20.0-40.0); LYMPHOCYTES % (AUTO) 14.8 % (20.5-51.5); MEAN CORPUSCULAR HEMOGLOBIN 32.4 uug (24.7-32.8); MEAN CORPUSCULAR HGB CONC 34 g/dL (32.3-35.6); MEAN CORPUSCULAR VOLUME 95.2 fL (75.5-95.3); MONOCYTES # (AUTO) 1.2 K/uL (2.0-10.0); MONOCYTES % (AUTO) 9.1 % (0.0-11.0); NEUTROPHILS # (AUTO) 9.1 K/uL (1.8-8.9); NEUTROPHILS % (AUTO) 71.8 % (38.5-71.5); PLATELET COUNT (AUTO) 239 K/uL (179-408); RED BLOOD CELL COUNT(AUTO) 2.97 MIL/uL (3.63-4.92); WHITE BLOOD COUNT (AUTO) 12.7 K/uL (3.8-11.8)
[2020-03-14 07:38] LABS: CREATININE 1.2 mg/dL (0.6-1.3); PHOSPHOROUS 4.3 mg/dL (2.5-4.9); POTASSIUM 4.6 mmol/L (3.5-5.1)
[2020-03-14] MEDS: FERROUS SULFATE 325 MG TABEC PO SCH ×3 (08:25→16:27)
[2020-03-14] MEDS: SERTRALINE HCL 50 MG TABLET PO SCH (08:25)
[2020-03-14] MEDS: METFORMIN HCL 500 MG TABLET PO SCH ×2 (08:25→17:28)
[2020-03-14] MEDS: DOCUSATE SODIUM 100 MG CAPSULE PO SCH ×2 (08:25→21:32)
[2020-03-14] MEDS: INSULIN REGULAR, HUMAN 300 UNIT/3 ML VIAL SQ PRN ×4 (08:25→21:44)
[2020-03-14] MEDS: MULTIVIT, IRON, MIN NO. 8, FA TABLET PO SCH (08:25)
[2020-03-14] MEDS: FOLIC ACID 1 MG TABLET PO SCH (08:25)
[2020-03-14] MEDS: GABAPENTIN 300 MG CAPSULE PO SCH ×3 (08:25→21:31)
[2020-03-14] MEDS: CEFEPIME HCL 1 G in IV DEXTROSE 5% 50 ML IV SCH ×2 (08:27→21:34)
[2020-03-14] MEDS: POLYVINYL ALCOHOL OPHT DROPS 15 ML BOTTLE EACHEYE SCH ×4 (08:27→21:32)
[2020-03-14] MEDS: predniSONE 10 MG TABLET PO SCH (08:28)
[2020-03-14] MEDS: LACTULOSE 20 G/30 ML LIQUID UDC PO SCH ×3 (08:28→16:33)
[2020-03-14] MEDS: LISINOPRIL 5 MG TABLET PO SCH (08:29)
--- NOTE | 2020-03-14 08:30 | NUR ---
AWAKE ALERT AND AWARE NO S/S OF HYPO/HYPERGLYCEMIC REACTIONS AT THIS TIME DENIES PAIN OR DISCOMFORTS REMAIN ON ISOLATION PER PROTOCOL NOT IN RESPIRATORY DISTRESS AT THIS TIME.
[2020-03-14] MEDS: HYDROXYCHLOROQUINE SULFATE 200 MG TABLET PO SCH (08:34)
[2020-03-14] MEDS: INSULIN GLARGINE,HUM 300 UNITS/3 ML CARTRIDGE SQ SCH ×2 (08:43→21:45)
--- NOTE | 2020-03-14 08:54 | NUR ---
Clinical Pharmacy Note: Vancomycin Dosing per Pharmacy Subjective: Vancomycin IV to continue on this 49 yo female patient for osteomyelitis Objective: BUN 23/Scr 1.2 WBC 12.7 Temperature 97.7 ht 157 cm wt 107.7 kg Assessment/Plan: Will continue same dose of vancomycin 1500mg IVPB q22hr for today, 3rd dose today at 1100. Will order trough before 4th scheduled dose (ordered for 03/15 at 0830). Will review the level in am & adjust the dose if needed. Will follow
[2020-03-14] MEDS ORDERED: METHOTREXATE SODIUM 50 MG/2 ML VIAL SQ SCH (09:00)
[2020-03-14 09:15] LABS: BASOPHILS % (MANUAL) 1 % (0-2); EOSINOPHILS % (MANUAL) 2 % (0-8); LYMPHOCYTES % (MANUAL) 12 % (20-40); METAMYELOCYTES % 1 % (0-1); MONOCYTES % (MANUAL) 7 % (2-10); MYELOCYTES % 2 % (0-0); NEUTROPHILS % (MANUAL) 75 % (42-75)
[2020-03-14] MEDS: VANCOMYCIN IV 1,500 MG in IV DEXTROSE 5% 500 ML IV SCH (10:49)
[2020-03-14] MEDS: IBUPROFEN 800 MG TABLET PO PRN ×3 (10:49→22:27)
[2020-03-14] MEDS: SILVER SULFADIAZINE 1% CREAM 50 GM TP SCH ×2 (10:49→21:34)
--- NOTE | 2020-03-14 11:44 | NUR ---
SEEN BY DR HUNT WITH NO NEW ORDERS AT THIS TIME.
--- NOTE | 2020-03-14 12:00 | NUR ---
IV SITE INFILTERATED LEFT ARM NOTED SWOLLEN IV REMOVED AND RESTARTED TO HER RIGHT WRIST WITH ONE ATTEMPT TOLERATED WELL LEFT ARM ELEVATED ON THE PILLOW NO REDNESS AT THIS TIME.WILL CONTINUE TO OBSERVE.
--- NOTE | 2020-03-14 17:00 | NUR ---
PATIENT TRANSFERED TO ROOM 320 IN SATISFACTORY CONDITION WITH ALL HER PERSONAL BELONGINGS.
--- NOTE | 2020-03-14 18:00 | NUR ---
BLOOD SUGAR WAS ELEVATED AT 311 INSULIN PER SLIDING SCALE ORDERED WITH NO S/S OF HYPERGLYCEMIC REACTIONS AT THIS TIME.WILL CONTINUE TO OBSERVE
--- NOTE | 2020-03-14 18:09 | NUR ---
PATIENT SEEN AND EXAMINED BY [employer]ING SERVICE TECHNICIAN WITH NO NEW ORDERS AT THIS TIME.
--- NOTE | 2020-03-14 19:30 | NUR ---
Received patient awake and alert in bed, no signs of acute distress noted. A/Ox4. No complaints of pain at this time. No complaints of SOB. Vitals WNL. Noted right second toe swollen/red/purple. Patient is suppose to have MRI, but pending COVID results. patient is on droplet/contact isolation. Heplock on the right wrist is intact and patent. Safety measures initiated. Bed is low and locked, call light within reach. Will continue to monitor.
[2020-03-14] MEDS: LATANOPROST OPHT DROP 2.5 ML BOTTLE EACHEYE SCH ×2 (21:00→21:33)
[2020-03-14] MEDS: ATORVASTATIN 40 MG TABLET PO SCH (21:31)
[2020-03-14] MEDS: MINERAL OIL/PETROLAT OPHT OINT 3.5 GM TUBE EACHEYE SCH (21:33)
[2020-03-14 21:46] VITALS: BP 115/56
--- NOTE | 2020-03-14 22:00 | NUR ---
Noted order for consent for amputation of the right 2nd toe, however, patient says there was no discussion about amputation, only about needing an MRI. Patient says she wants to speak with the doctor tomorrow before signing anything. Endorsed to charge nurse.
[2020-03-14] MEDS: TRAZODONE 50 MG TABLET PO PRN (22:27)
[2020-03-15 05:19] VITALS: BP 118/63
[2020-03-15] MEDS: PANTOPRAZOLE SODIUM 40 MG TABLET.DR PO SCH ×2 (06:13→17:07)
--- NOTE | 2020-03-15 06:16 | NUR ---
Patient is now NPO, explained to patient that she is NPO in case they do decide for surgery, but she will be able to speak to doctors later. No episodes of hyper/hypoglycemia noted. COVID results still pending. Medications given as ordered. Will endorse to next shift.
[2020-03-15] MEDS: BLOOD SUGAR DIAGNOSTIC 1 EACH STRIP VI SCH ×4 (06:36→21:07)
[2020-03-15 08:00] VITALS: BP 124/56
[2020-03-15] MEDS: METFORMIN HCL 500 MG TABLET PO SCH ×2 (08:00→17:07)
[2020-03-15] MEDS: IBUPROFEN 800 MG TABLET PO PRN ×3 (08:27→18:36)
[2020-03-15] MEDS: CEFEPIME HCL 1 G in IV DEXTROSE 5% 50 ML IV SCH ×2 (08:28→20:58)
[2020-03-15] MEDS: diphenhydrAMINE 25 MG CAP PO PRN ×3 (08:28→18:36)
[2020-03-15] MEDS: SILVER SULFADIAZINE 1% CREAM 50 GM TP SCH ×2 (08:43→20:54)
[2020-03-15] MEDS: MULTIVIT, IRON, MIN NO. 8, FA TABLET PO SCH ×2 (09:00→13:04)
[2020-03-15] MEDS: FERROUS SULFATE 325 MG TABEC PO SCH ×3 (09:00→17:07)
[2020-03-15] MEDS: INSULIN GLARGINE,HUM 300 UNITS/3 ML CARTRIDGE SQ SCH ×2 (09:00→21:15)
[2020-03-15] MEDS: FOLIC ACID 1 MG TABLET PO SCH ×2 (09:00→13:04)
[2020-03-15] MEDS: LISINOPRIL 5 MG TABLET PO SCH ×2 (09:00→13:04)
[2020-03-15] MEDS: DOCUSATE SODIUM 100 MG CAPSULE PO SCH ×2 (09:00→20:54)
[2020-03-15] MEDS: LACTULOSE 20 G/30 ML LIQUID UDC PO SCH ×3 (09:00→17:07)
[2020-03-15] MEDS: POLYVINYL ALCOHOL OPHT DROPS 15 ML BOTTLE EACHEYE SCH ×4 (09:00→20:54)
[2020-03-15] MEDS: SERTRALINE HCL 50 MG TABLET PO SCH ×2 (09:00→13:04)
[2020-03-15] MEDS: CALCIUM CARBONATE 500 MG TAB.CHEW PO PRN ×3 (09:14→18:36)
--- NOTE | 2020-03-15 09:44 | NUR ---
Clinical Pharmacy Note: Vancomycin Dosing per Pharmacy Subjective: Vancomycin IV to continue on this 49 yo female patient for osteomyelitis Objective: BUN 23/Scr 1.2 (03/14) WBC 12.7 (03/14) Temperature 97.9 Vanco trough level on 03/15 at 0830: 16.2 ht 157 cm wt 107.7 kg Assessment/Plan: Since vanco trough level is within therapeutic range, will continue same dose of vancomycin 1500mg IVPB q22hr for today. Will monitor renal function & repeat level or adjust the dose if needed. Will follow
[2020-03-15] MEDS: predniSONE 10 MG TABLET PO SCH (10:14)
[2020-03-15] MEDS: GABAPENTIN 300 MG CAPSULE PO SCH ×3 (10:14→20:53)
[2020-03-15] MEDS: SIMETHICONE 80 MG TAB.CHEW PO PRN ×2 (10:22→18:36)
[2020-03-15] MEDS: VANCOMYCIN IV 1,500 MG in IV DEXTROSE 5% 500 ML IV SCH (10:42)
[2020-03-15 12:00] VITALS: BP 114/60
[2020-03-15 12:04] VITALS: BP 122/56
[2020-03-15] MEDS: INSULIN REGULAR, HUMAN 300 UNIT/3 ML VIAL SQ PRN ×3 (12:53→21:16)
[2020-03-15] MEDS ORDERED: ALBUTEROL SULFATE 2.5 MG/3 ML NEBU NEB PRN (16:15)
[2020-03-15 16:30] VITALS: BP 111/53
[2020-03-15 19:59] VITALS: BP 101/62
--- NOTE | 2020-03-15 20:00 | NUR ---
Patient received into care, sitting up in bed, watching television and talking on the telephone. Patient is alert/oriented x4 and has no complaints of pain/discomfort at this time. All safety, fall, and allergy precautions are in place. Call light and personal items are within reach at all times. Will continue to monitor and assess.
[2020-03-15] MEDS: LATANOPROST OPHT DROP 2.5 ML BOTTLE EACHEYE SCH (20:54)
[2020-03-15] MEDS: MINERAL OIL/PETROLAT OPHT OINT 3.5 GM TUBE EACHEYE SCH (20:54)
[2020-03-15] MEDS: ATORVASTATIN 40 MG TABLET PO SCH (20:54)
[2020-03-15] MEDS: TRAZODONE 50 MG TABLET PO PRN (21:26)
--- NOTE | 2020-03-15 23:30 | NUR ---
Hand off report given by this nurse to GHANSHYAM Reyes
--- NOTE | 2020-03-15 23:31 | NUR ---
RECEIVED PT IN NO ACUTE DISTRESS. SAFETY AND COMFORT PROVIDED. WILL CONTINUE TO MONITOR.
[2020-03-16 04:31] VITALS: BP 107/57
[2020-03-16] MEDS ORDERED: VANCOMYCIN 1000 MG VIAL ONE (04:41)
[2020-03-16] MEDS: VANCOMYCIN IV 1,500 MG in IV DEXTROSE 5% 500 ML IV SCH (06:01)
[2020-03-16] MEDS: PANTOPRAZOLE SODIUM 40 MG TABLET.DR PO SCH ×2 (06:02→17:28)
--- NOTE | 2020-03-16 06:18 | NUR ---
PT SLEPT INTERMITTENTLY. PT IN NO ACUTE DISTRESS. IV INTACT.SAFETY AND COMFORT PROVIDED. ALL NEEDS ARE MET. WILL ENDORSE TO INCOMING NURSE FOR CONTINUITY OF CARE.
[2020-03-16] MEDS: BLOOD SUGAR DIAGNOSTIC 1 EACH STRIP VI SCH ×4 (06:32→21:23)
[2020-03-16 07:36] VITALS: BP 123/78
[2020-03-16] MEDS: IBUPROFEN 800 MG TABLET PO PRN ×2 (07:44→18:47)
--- NOTE | 2020-03-16 07:55 | NUR ---
Received patient in bed, awake, alert and verbally responsive. No signs of distress noted, No SOB, On room Air saturating 97%. Pain Medication given as ordered for Generalized body pain. Patient has Scheduled MRI at 0800, awaiting for Transportation. kept clean and comfortable. Will continue to monitor.
--- NOTE | 2020-03-16 08:17 | NUR ---
Patient was picked up by 2 EMT via [facility] for MRI in [place] in stable condition.
--- NOTE | 2020-03-16 09:10 | NUR ---
Resident came back from MRI in stable condition.
[2020-03-16] MEDS: DOCUSATE SODIUM 100 MG CAPSULE PO SCH ×2 (09:28→21:12)
[2020-03-16] MEDS: LACTULOSE 20 G/30 ML LIQUID UDC PO SCH ×3 (09:28→17:28)
[2020-03-16] MEDS: METFORMIN HCL 500 MG TABLET PO SCH ×2 (09:28→17:28)
[2020-03-16] MEDS: MULTIVIT, IRON, MIN NO. 8, FA TABLET PO SCH (09:29)
[2020-03-16] MEDS: GABAPENTIN 300 MG CAPSULE PO SCH ×3 (09:29→21:11)
[2020-03-16] MEDS: predniSONE 10 MG TABLET PO SCH (09:29)
[2020-03-16] MEDS: FOLIC ACID 1 MG TABLET PO SCH (09:29)
[2020-03-16] MEDS: FERROUS SULFATE 325 MG TABEC PO SCH ×3 (09:29→17:28)
[2020-03-16] MEDS: POLYVINYL ALCOHOL OPHT DROPS 15 ML BOTTLE EACHEYE SCH ×4 (09:30→21:13)
[2020-03-16] MEDS: SERTRALINE HCL 50 MG TABLET PO SCH (09:30)
[2020-03-16] MEDS: INSULIN GLARGINE,HUM 300 UNITS/3 ML CARTRIDGE SQ SCH ×2 (09:38→21:26)
[2020-03-16] MEDS: LISINOPRIL 5 MG TABLET PO SCH (09:39)
[2020-03-16] MEDS: HYDROXYCHLOROQUINE SULFATE 200 MG TABLET PO SCH (09:47)
[2020-03-16] MEDS: CEFEPIME HCL 1 G in IV DEXTROSE 5% 50 ML IV SCH ×2 (09:47→21:23)
[2020-03-16] MEDS: diphenhydrAMINE 25 MG CAP PO PRN ×2 (09:50→21:12)
[2020-03-16] MEDS: SIMETHICONE 80 MG TAB.CHEW PO PRN ×3 (09:50→21:11)
--- NOTE | 2020-03-16 11:40 | NUR ---
Gave report to Marly MORRISSEY
[2020-03-16 12:00] VITALS: BP 106/64
[2020-03-16] MEDS: SILVER SULFADIAZINE 1% CREAM 50 GM TP SCH ×2 (13:14→21:14)
[2020-03-16] MEDS: CALCIUM CARBONATE 500 MG TAB.CHEW PO PRN ×2 (13:24→21:12)
[2020-03-16 13:29] LABS: BASOPHILS % (AUTO) 0.1 % (0.0-2.0); EOSINOPHILS # (AUTO) 0.3 K/uL (0.0-0.7); EOSINOPHILS % (AUTO) 1.7 % (0.0-7.0); HEMATOCRIT 30.1 % (31.2-41.9); HEMOGLOBIN 10.1 g/dL (10.9-14.3); LYMPHOCYTES % (AUTO) 6.1 % (20.5-51.5); MEAN CORPUSCULAR HGB CONC 34 g/dL (32.3-35.6); MONOCYTES # (AUTO) 0.6 K/uL (2.0-10.0); MONOCYTES % (AUTO) 3.8 % (0.0-11.0); NEUTROPHILS # (AUTO) 13.9 K/uL (1.8-8.9); NEUTROPHILS % (AUTO) 88.3 % (38.5-71.5); PLATELET COUNT (AUTO) 263 K/uL (179-408); RED BLOOD CELL COUNT(AUTO) 3.17 MIL/uL (3.63-4.92); WHITE BLOOD COUNT (AUTO) 15.8 K/uL (3.8-11.8)
[2020-03-16 13:58] LABS: CREATININE 1.2 mg/dL (0.6-1.3); MAGNESIUM 1.9 mg/dL (1.8-2.4); PHOSPHOROUS 4.2 mg/dL (2.5-4.9); POTASSIUM 4.8 mmol/L (3.5-5.1)
--- NOTE | 2020-03-16 15:47 | NUR ---
Clinical Pharmacy Note: Vancomycin Dosing per Pharmacy Subjective: Vancomycin IV to continue on this 49 yo female patient for osteomyelitis Objective: BUN 23/Scr 1.2 (03/14) WBC 12.7 (03/14) Temperature 98.4 Vanco trough level on 03/15 at 0830: 16.2 ht 157 cm wt 107.7 kg Assessment/Plan: As trough yesterday was in range, will continue same dose of vancomycin 1500mg IVPB q22hr for today. Last dose given today at 0700. Will monitor renal function & repeat level or adjust the dose if needed. Will follow
[2020-03-16 15:59] VITALS: BP 101/70
[2020-03-16] MEDS: INSULIN REGULAR, HUMAN 300 UNIT/3 ML VIAL SQ PRN ×2 (17:39→21:25)
--- NOTE | 2020-03-16 19:00 | NUR ---
pt. resting in bed. all needs met. safety measures in place. call light within reach. will endorse to pm nurse
[2020-03-16 20:12] VITALS: BP 115/60
[2020-03-16] MEDS: TRAZODONE 50 MG TABLET PO PRN (21:12)
[2020-03-16] MEDS: ATORVASTATIN 40 MG TABLET PO SCH (21:12)
[2020-03-16] MEDS: LATANOPROST OPHT DROP 2.5 ML BOTTLE EACHEYE SCH (21:27)
[2020-03-16] MEDS: MINERAL OIL/PETROLAT OPHT OINT 3.5 GM TUBE EACHEYE SCH (21:27)
[2020-03-16] MEDS ORDERED: ACETAMINOPHEN ES 500 MG TABLET ONE (22:27)
[2020-03-16] MEDS: ACETAMINOPHEN ES 500 MG TABLET PO PRN (22:33)
[2020-03-17 04:18] VITALS: BP 115/55
[2020-03-17] MEDS: VANCOMYCIN IV 1,500 MG in IV DEXTROSE 5% 500 ML IV SCH (04:54)
[2020-03-17 05:16] LABS: *BILIRUBIN,URIN NEGATIVE (NEGATIVE); *BLOOD, URINE NEGATIVE (NEGATIVE); *CLARITY,URINE CLEAR (CLEAR); *COLOR,URINE YELLOW (YELLOW); *KETONES,URINE NEGATIVE (NEGATIVE); *UROBILINOGEN,URINE 0.2 E.U./dl (NORMAL); LEUKOCYTE ESTERASE ,URINE NEGATIVE (NEGATIVE); NITRITE, URINE NEGATIVE (NEGATIVE); PH,URINE 6.5 (5.0-8.0); UGLUCOSE TRACE (NEGATIVE)
--- NOTE | 2020-03-17 05:51 | NUR ---
PATIENT AAOX3. NO S/S OF ACUTE DISTRESS. V/S STABLE. DR. MONROE ORDERED COMPLETE WORKUP FOR PATIENTS PREOP.
[2020-03-17 06:06] LABS: BACTERIA,URINE NONE SEEN /HPF (NONE SEEN); MUCUS,URINE FEW /LPF (0-FEW); RBC,URINE 0-3 /HPF (0-3); SQUAMOUS EPITHELIAL CELL,UR FEW /HPF (NONE SEEN); WBC,URINE 0-3 /HPF (0-3)
[2020-03-17] MEDS: PANTOPRAZOLE SODIUM 40 MG TABLET.DR PO SCH ×2 (06:31→17:20)
[2020-03-17 06:36] LABS: BILIRUBIN,TOTAL 0.4 mg/dL (0.2-1.0); CREATININE 1.3 mg/dL (0.6-1.3); POTASSIUM 4.2 mmol/L (3.5-5.1); TOTAL PROTEIN, SERUM 6.2 g/dL (6.4-8.2)
[2020-03-17 06:39] LABS: BASOPHILS % (AUTO) 0.4 % (0.0-2.0); EOSINOPHILS # (AUTO) 0.5 K/uL (0.0-0.7); EOSINOPHILS % (AUTO) 3.9 % (0.0-7.0); HEMATOCRIT 27.6 % (31.2-41.9); HEMOGLOBIN 9.3 g/dL (10.9-14.3); LYMPHOCYTES # (AUTO) 1.9 K/uL (20.0-40.0); MEAN CORPUSCULAR HEMOGLOBIN 32.1 uug (24.7-32.8); MEAN CORPUSCULAR HGB CONC 34 g/dL (32.3-35.6); MEAN CORPUSCULAR VOLUME 95.6 fL (75.5-95.3); MONOCYTES # (AUTO) 0.9 K/uL (2.0-10.0); MONOCYTES % (AUTO) 7.2 % (0.0-11.0); NEUTROPHILS # (AUTO) 9.2 K/uL (1.8-8.9); NEUTROPHILS % (AUTO) 73.5 % (38.5-71.5); PLATELET COUNT (AUTO) 233 K/uL (179-408); RED BLOOD CELL COUNT(AUTO) 2.88 MIL/uL (3.63-4.92); WHITE BLOOD COUNT (AUTO) 12.4 K/uL (3.8-11.8)
[2020-03-17] MEDS: BLOOD SUGAR DIAGNOSTIC 1 EACH STRIP VI SCH ×4 (07:01→21:48)
--- NOTE | 2020-03-17 07:03 | NUR ---
report given to natasha in surgery. BS of 140 reported.
[2020-03-17] MEDS ORDERED: LIDOCAINE HCL 1% 20 ML VIAL ONE (07:05)
[2020-03-17] MEDS ORDERED: BACITRACIN 50,000 UNITS VIAL ONE (07:05)
[2020-03-17] MEDS ORDERED: BUPIVACAINE PF 0.5% 30 ML VIAL ONE (07:05)
[2020-03-17] MEDS ORDERED: POLYMYXIN B SULFATE 500,000 UNITS VIAL ONE (07:05)
[2020-03-17] MEDS ORDERED: MIDAZOLAM HCL 10 MG/2 ML VIAL ONE (07:28)
[2020-03-17] MEDS ORDERED: FENTANYL CITRATE 100 MCG/2 ML AMPUL ONE (07:29)
--- NOTE | 2020-03-17 07:30 | NUR ---
Pt was taken to OR for surgery. Metformin PO not given
[2020-03-17] MEDS: METFORMIN HCL 500 MG TABLET PO SCH ×2 (08:00→17:20)
[2020-03-17] MEDS: INSULIN GLARGINE,HUM 300 UNITS/3 ML CARTRIDGE SQ SCH ×2 (09:00→22:11)
--- NOTE | 2020-03-17 09:13 | NUR ---
Pt arrived in from OR. Report received from Emely Vidal RN. Pt in bed awake AOx4. No complaints of pain, SOB or distress at this time, on RA. IV on right FA 20g. Dressing on right leg. Bed locked in lowest position withe siderails 2x up. will continue to monitor
[2020-03-17 09:15] VITALS: BP 135/63
--- NOTE | 2020-03-17 09:30 | NUR ---
checked BS- 65, gave orange juice and 2 apple sauces. Pt is responsive. ordered tray from dietary.
[2020-03-17] MEDS: CEFEPIME HCL 1 G in IV DEXTROSE 5% 50 ML IV SCH ×2 (09:59→21:09)
[2020-03-17] MEDS: FERROUS SULFATE 325 MG TABEC PO SCH ×3 (10:00→17:20)
[2020-03-17] MEDS: FOLIC ACID 1 MG TABLET PO SCH (10:00)
[2020-03-17] MEDS: DOCUSATE SODIUM 100 MG CAPSULE PO SCH ×2 (10:00→20:57)
[2020-03-17] MEDS: GABAPENTIN 300 MG CAPSULE PO SCH ×3 (10:00→20:57)
[2020-03-17] MEDS: MULTIVIT, IRON, MIN NO. 8, FA TABLET PO SCH (10:39)
[2020-03-17] MEDS: SERTRALINE HCL 50 MG TABLET PO SCH (10:39)
[2020-03-17] MEDS: LACTULOSE 20 G/30 ML LIQUID UDC PO SCH ×3 (10:39→17:00)
[2020-03-17] MEDS: LISINOPRIL 5 MG TABLET PO SCH (10:40)
[2020-03-17] MEDS: predniSONE 10 MG TABLET PO SCH (10:40)
[2020-03-17] MEDS: POLYVINYL ALCOHOL OPHT DROPS 15 ML BOTTLE EACHEYE SCH ×4 (10:41→21:09)
--- NOTE | 2020-03-17 10:58 | NUR ---
BS rechecked, 144. Pt refused Lantus, educated on risks and benefits for refusal. Verbalized understanding.
--- NOTE | 2020-03-17 11:00 | NUR ---
Informed Dr. Waller about patient's BS and refusal of Lantus. aware
[2020-03-17] MEDS: CALCIUM CARBONATE 500 MG TAB.CHEW PO PRN ×3 (12:40→21:35)
[2020-03-17] MEDS: diphenhydrAMINE 25 MG CAP PO PRN ×2 (12:40→21:35)
[2020-03-17] MEDS: IBUPROFEN 800 MG TABLET PO PRN ×2 (12:40→20:57)
[2020-03-17] MEDS: SIMETHICONE 80 MG TAB.CHEW PO PRN ×2 (12:41→21:35)
[2020-03-17] MEDS: INSULIN REGULAR, HUMAN 300 UNIT/3 ML VIAL SQ PRN ×3 (12:44→22:12)
--- NOTE | 2020-03-17 13:43 | NUR ---
Clinical Pharmacy Note: Vancomycin Dosing per Pharmacy Subjective: Vancomycin IV to continue on this 49 yo female patient for osteomyelitis Objective: BUN 21/Scr 1.3 WBC 12.4 Temperature 98.4 Vanco trough level on 03/15 at 0830: 16.2 ht 157 cm wt 107.7 kg Assessment/Plan: Will continue same dose of vancomycin 1500mg IVPB q22hr for today. Last dose given today at 0500. Will monitor renal function & repeat level or adjust the dose if needed. Will follow
[2020-03-17 13:48] VITALS: BP 109/52
[2020-03-17 20:27] VITALS: BP 126/68
[2020-03-17] MEDS ORDERED: LORAZEPAM 2 MG/1 ML VIAL ONE (20:38)
[2020-03-17] MEDS: ATORVASTATIN 40 MG TABLET PO SCH (20:56)
[2020-03-17] MEDS: LATANOPROST OPHT DROP 2.5 ML BOTTLE EACHEYE SCH (21:17)
[2020-03-17] MEDS: MINERAL OIL/PETROLAT OPHT OINT 3.5 GM TUBE EACHEYE SCH (21:17)
[2020-03-17] MEDS: TRAZODONE 50 MG TABLET PO PRN (21:35)
[2020-03-18] MEDS: VANCOMYCIN IV 1,500 MG in IV DEXTROSE 5% 500 ML IV SCH (03:06)
[2020-03-18 05:36] VITALS: BP 96/55
[2020-03-18] MEDS: PANTOPRAZOLE SODIUM 40 MG TABLET.DR PO SCH ×2 (06:11→18:06)
[2020-03-18 08:00] VITALS: BP 92/43
[2020-03-18] MEDS: BLOOD SUGAR DIAGNOSTIC 1 EACH STRIP VI SCH ×4 (08:07→21:07)
[2020-03-18] MEDS: INSULIN GLARGINE,HUM 300 UNITS/3 ML CARTRIDGE SQ SCH ×2 (09:00→21:07)
[2020-03-18] MEDS: LISINOPRIL 5 MG TABLET PO SCH (09:00)
[2020-03-18] MEDS: METFORMIN HCL 500 MG TABLET PO SCH ×2 (09:08→18:05)
[2020-03-18] MEDS: GABAPENTIN 300 MG CAPSULE PO SCH ×3 (09:09→20:58)
[2020-03-18] MEDS: DOXYCYCLINE HYCLATE 100 MG TABLET PO SCH ×2 (09:09→20:59)
[2020-03-18] MEDS: SERTRALINE HCL 50 MG TABLET PO SCH (09:09)
[2020-03-18] MEDS: FOLIC ACID 1 MG TABLET PO SCH (09:09)
[2020-03-18] MEDS: FERROUS SULFATE 325 MG TABEC PO SCH ×3 (09:09→18:05)
[2020-03-18] MEDS: LACTULOSE 20 G/30 ML LIQUID UDC PO SCH ×3 (09:09→18:06)
[2020-03-18] MEDS: MULTIVIT, IRON, MIN NO. 8, FA TABLET PO SCH (09:09)
[2020-03-18] MEDS: DOCUSATE SODIUM 100 MG CAPSULE PO SCH ×2 (09:09→20:58)
[2020-03-18] MEDS: POLYVINYL ALCOHOL OPHT DROPS 15 ML BOTTLE EACHEYE SCH ×4 (09:10→21:11)
--- NOTE | 2020-03-18 09:15 | NUR ---
Pt's BS at 6:30 was 70 per PM shift nurse. He gave apple juice. Retook BS, 78. Lantus not given. BP med, Lisinopril not given, BP was 92/43
[2020-03-18] MEDS: IBUPROFEN 800 MG TABLET PO PRN ×2 (09:35→18:25)
[2020-03-18] MEDS: predniSONE 10 MG TABLET PO SCH (09:36)
[2020-03-18] MEDS: CALCIUM CARBONATE 500 MG TAB.CHEW PO PRN ×2 (11:58→18:25)
[2020-03-18] MEDS: diphenhydrAMINE 25 MG CAP PO PRN ×2 (11:58→18:25)
[2020-03-18] MEDS: SIMETHICONE 80 MG TAB.CHEW PO PRN ×2 (11:58→18:25)
[2020-03-18 12:13] VITALS: BP 101/51
[2020-03-18] MEDS: IV NS 1000 ML 1,000 ML IV ONE ×2 (14:09→18:06)
[2020-03-18] MEDS: INSULIN REGULAR, HUMAN 300 UNIT/3 ML VIAL SQ PRN ×2 (16:37→21:09)
--- NOTE | 2020-03-18 20:00 | NUR ---
RECEIVED PATIENT AWAKE IN BED. A/O X4. NO C/O PAIN AT THIS TIME. NO RESP. DISTRESS NOTED. MID-LINE NOTED TO RIGHT UPPER ARM, INTACT AND PATENT. CALL LIGHT IN REACH. ALL NEEDS ATTENDED. WILL CONTINUE TO MONITOR AND ASSESS.
[2020-03-18 20:27] VITALS: BP 123/65
[2020-03-18] MEDS: ATORVASTATIN 40 MG TABLET PO SCH (20:58)
[2020-03-18] MEDS: LATANOPROST OPHT DROP 2.5 ML BOTTLE EACHEYE SCH (20:58)
[2020-03-18] MEDS: MINERAL OIL/PETROLAT OPHT OINT 3.5 GM TUBE EACHEYE SCH (20:58)
[2020-03-18] MEDS: TRAZODONE 50 MG TABLET PO PRN (21:10)
[2020-03-18] MEDS: ACETAMINOPHEN ES 500 MG TABLET PO PRN (21:14)
[2020-03-19] MEDS: BLOOD SUGAR DIAGNOSTIC 1 EACH STRIP VI SCH ×5 (00:10→16:30)
--- NOTE | 2020-03-19 00:10 | NUR ---
PATIENT AWAKE IN BED. CALLED OUT TO NURSING STATION TO ASK IF BS CAN BE TAKEN BECAUSE SHE FEELS LIKE IT HAS DROPPED. PATIENTS BS IS 26. PATIENT IS A/O X4. ASYMPTOMATIC. PATIENT REFUSING FOR LAB TO COME LAB AT THIS TIME. ASKING FOR FOOD/JUICE. MANAGER CULINARY NOTIFIED. PATIENT GIVEN FOOD AND JUICE. WILL RECHECK. ALL NEEDS ATTENDED.
[2020-03-19 04:27] VITALS: BP_SYST 115; BP_SYST 118; BP_DIAS 62; BP_DIAS 66
[2020-03-19] MEDS: PANTOPRAZOLE SODIUM 40 MG TABLET.DR PO SCH ×2 (06:10→17:58)
[2020-03-19] MEDS: SERTRALINE HCL 50 MG TABLET PO SCH (08:17)
[2020-03-19] MEDS: GABAPENTIN 300 MG CAPSULE PO SCH ×2 (08:17→17:58)
[2020-03-19] MEDS: DOXYCYCLINE HYCLATE 100 MG TABLET PO SCH ×2 (08:17→17:57)
[2020-03-19] MEDS: LISINOPRIL 5 MG TABLET PO SCH (08:18)
[2020-03-19] MEDS: predniSONE 10 MG TABLET PO SCH (08:19)
[2020-03-19] MEDS: FOLIC ACID 1 MG TABLET PO SCH (08:20)
[2020-03-19] MEDS: DOCUSATE SODIUM 100 MG CAPSULE PO SCH (08:20)
[2020-03-19] MEDS: MULTIVIT, IRON, MIN NO. 8, FA TABLET PO SCH (08:21)
[2020-03-19] MEDS: POLYVINYL ALCOHOL OPHT DROPS 15 ML BOTTLE EACHEYE SCH ×3 (08:23→17:59)
[2020-03-19] MEDS: INSULIN GLARGINE,HUM 300 UNITS/3 ML CARTRIDGE SQ SCH (08:28)
[2020-03-19] MEDS: LACTULOSE 20 G/30 ML LIQUID UDC PO SCH ×3 (08:31→18:02)
[2020-03-19] MEDS: IBUPROFEN 800 MG TABLET PO PRN ×2 (08:57→17:56)
[2020-03-19] MEDS: METFORMIN HCL 500 MG TABLET PO SCH ×2 (08:57→17:56)
[2020-03-19] MEDS: SIMETHICONE 80 MG TAB.CHEW PO PRN ×2 (08:58→17:56)
[2020-03-19] MEDS: FERROUS SULFATE 325 MG TABEC PO SCH ×3 (08:58→17:56)
[2020-03-19] MEDS: CALCIUM CARBONATE 500 MG TAB.CHEW PO PRN ×2 (08:58→17:56)
[2020-03-19] MEDS: diphenhydrAMINE 25 MG CAP PO PRN ×2 (08:58→17:57)
[2020-03-19 09:16] LABS: BASOPHILS % (AUTO) 0.4 % (0.0-2.0); EOSINOPHILS # (AUTO) 0.7 K/uL (0.0-0.7); EOSINOPHILS % (AUTO) 5.4 % (0.0-7.0); HEMATOCRIT 27.3 % (31.2-41.9); HEMOGLOBIN 9.2 g/dL (10.9-14.3); LYMPHOCYTES # (AUTO) 1.7 K/uL (20.0-40.0); LYMPHOCYTES % (AUTO) 14.2 % (20.5-51.5); MEAN CORPUSCULAR HEMOGLOBIN 32.3 uug (24.7-32.8); MEAN CORPUSCULAR HGB CONC 34 g/dL (32.3-35.6); MEAN CORPUSCULAR VOLUME 95.7 fL (75.5-95.3); NEUTROPHILS # (AUTO) 8.9 K/uL (1.8-8.9); PLATELET COUNT (AUTO) 243 K/uL (179-408); RED BLOOD CELL COUNT(AUTO) 2.86 MIL/uL (3.63-4.92); WHITE BLOOD COUNT (AUTO) 12.3 K/uL (3.8-11.8)
[2020-03-19 09:29] LABS: CREATININE 1.1 mg/dL (0.6-1.3); MAGNESIUM 1.8 mg/dL (1.8-2.4); PHOSPHOROUS 4.2 mg/dL (2.5-4.9); POTASSIUM 4.1 mmol/L (3.5-5.1)
[2020-03-19 10:00] VITALS: BP 123/70
--- NOTE | 2020-03-19 13:46 | NUR ---
ORDER FOR D/C ON FILE [facility] CALLED AND SPOKE TO DEEDEE SAYS SHE WILL HAVE HER AUTO PARTS CLERK CALL ME BACK REGARDING REPORT AND RECEIVING. PT AWARE OF D/C
--- NOTE | 2020-03-19 15:23 | NUR ---
p/u time scheduled for 1800 with [facility]. confirmed and report given to sonia at [facility]
[2020-03-19 16:50] VITALS: BP 87/46
--- NOTE | 2020-03-19 18:53 | NUR ---
PICKED UP VIA [facility] TRANSPORTED TO [facility]. D/C INSTRUCTIONS GIVEN VERBALIZE UNDERSTANDING.. PICS TAKEN Addendum: 03/19/20 at 1855 by Leyda Arriaga RN REQUESTED TO RECEIVE ANTIBIOTIC EARLY SO SHE DOES HAVE TO WORRY ABOUT HER DOSE FOR THE EVENING. UNTIL SHE PICKS UP HER SCRIPT TOMORROW
[2020-03-19] MEDS ORDERED: INSULIN GLARGINE,HUM 300 UNITS/3 ML CARTRIDGE SQ SCH (21:00)
[2020-03-20] MEDS ORDERED: INSULIN GLARGINE,HUM 300 UNITS/3 ML CARTRIDGE SQ SCH (09:00)
== END 2020-03-19 18:25 | DRG 314 ==
LOC: ER 20:43 → MED 03-12 02:48 → MEDSURG3 03-14 16:40
PROVIDERS: ADMIT Internal Medicine Nephrology; ATTEND Internal Medicine Nephrology
DX: E11.69 Type 2 diabetes mellitus with other specified complication (principal); E11.22 Type 2 diabetes mellitus with diabetic chronic kidney disease; I95.9 Hypotension, unspecified; E11.51 Type 2 diabetes mellitus with diabetic peripheral angiopathy without gangrene; E66.01 Morbid (severe) obesity due to excess calories; L03.115 Cellulitis of right lower limb; D64.9 Anemia, unspecified; E11.42 Type 2 diabetes mellitus with diabetic polyneuropathy; E11.621 Type 2 diabetes mellitus with foot ulcer; L97.519 Non-pressure chronic ulcer of other part of right foot with unspecified severity; M86.8X7 Other osteomyelitis, ankle and foot; Z68.41 Body mass index [BMI] 40.0-44.9, adult; L03.031 Cellulitis of right toe; M06.9 Rheumatoid arthritis, unspecified; Z71.3 Dietary counseling and surveillance; I25.10 Atherosclerotic heart disease of native coronary artery without angina pectoris; Z79.4 Long term (current) use of insulin; N18.9 Chronic kidney disease, unspecified; Z79.899 Other long term (current) drug therapy; D72.829 Elevated white blood cell count, unspecified; Z88.2 Allergy status to sulfonamides; Z79.1 Long term (current) use of non-steroidal anti-inflammatories (NSAID); E86.0 Dehydration; Z79.84 Long term (current) use of oral hypoglycemic drugs; M79.7 Fibromyalgia; Z89.412 Acquired absence of left great toe
CPT/HCPCS: 36415; 70030-TC; 71045; 73630; 73660; 73721; 83735; 84100; 85025; 85651; 85730; 86850; 86900; 86901; 87070; 87075; 87077; 87086; 93005; A4649; A4663; A9150; G0378; J0692; J1815; J2060; J2250; J2543; J3010; J3370; J3490; J3535; J7030; J7040; J7060; J7512; Q0163; U0003-CS

== ENCOUNTER 2020-03-26 17:53 | Inpatient (IN) | payer OTHER ==
[~2020-03-26] VITALS: Ht 167.6 cm; Wt 101.7 kg
[~2020-03-26 17:53] MED LIST changes: +ACET-2605 PO; +ALBU18HF2 IH; -AMIN30LI2 PO; +CRAN250C PO; -CYCL30DR EACHEYE; +CYCL30DR OP; +D-ME473S17 PO; -FURO-152 PO; +HYPR15DR9 OP; -INSU100I34 SQ; -LACT-214 PO; +LATA2.5D2 EACHEYE; -LEFL20TA PO; +LIDOCAINE MM; -LISI-603 PO; +LISI-607 PO; -LORA10TA7 PO; -MULT-594 PO; +MULT1TAB64 PO; +POLY30DR OP; +SERT50TA PO; +SILV20CR3 TOP; +SIME80TA30 PO; -SIMV-46 PO; -[UNRECOGNIZED DRUG - CODE] MC; +[UNRECOGNIZED DRUG - OTHER]; +[UNRECOGNIZED DRUG - OTHER] MM
[2020-03-26] MEDS ORDERED: VANCOMYCIN IV 1,000 MG in IV DEXTROSE 5% 250 ML IV ONE (18:30)
[2020-03-26] MEDS ORDERED: IBUPROFEN 800 MG TABLET PO ONE (18:30)
[2020-03-26] MEDS ORDERED: IBUPROFEN 800 MG TABLET ONE (18:42)
[2020-03-26] MEDS ORDERED: VANCOMYCIN IV 200 ML ONE ×2 (18:43→19:30)
[2020-03-26] MEDS ORDERED: LIDOCAINE PO (19:04)
[2020-03-26] MEDS ORDERED: [UNRECOGNIZED DRUG - OTHER] PO (19:04)
[2020-03-26] MEDS ORDERED: METAMUCIL PO ×2 (19:04→19:22)
[2020-03-26] MEDS ORDERED: CRAN250C PO (19:04)
[2020-03-26] MEDS ORDERED: MULT1TAB62 PO (19:04)
[2020-03-26] MEDS ORDERED: METH25VI67 IJ (19:04)
[2020-03-26] MEDS ORDERED: PROM118S5 PO (19:04)
[2020-03-26] MEDS ORDERED: METH25VI IJ (19:04)
[2020-03-26] MEDS ORDERED: CYCL30DR EACHEYE (19:04)
[2020-03-26] MEDS ORDERED: OMEP20CA15 PO (19:04)
[2020-03-26] MEDS ORDERED: INSU100I34 SQ ×4 (19:04→19:22)
[2020-03-26] MEDS ORDERED: ASCO500T10 PO (19:04)
[2020-03-26] MEDS ORDERED: HYDR200T4 PO ×2 (19:04)
--- NOTE | 2020-03-26 19:14 | NUR ---
Assumed care for patient at this time, report received from Elinor MORRISSEY.
[2020-03-26] MEDS ORDERED: ACCUCHECK (19:22)
[2020-03-26] MEDS ORDERED: DEXT15DR6 EACHEYE (19:22)
[2020-03-26] MEDS ORDERED: [UNRECOGNIZED DRUG - SUPPLY] (19:22)
[2020-03-26] MEDS ORDERED: SENN-261 PO (19:22)
[2020-03-26] MEDS ORDERED: TRAZ-257 PO (19:22)
[2020-03-26] MEDS ORDERED: INSU100V7 SQ ×2 (19:22)
--- NOTE | 2020-03-26 20:00 | NUR ---
Per report from AM nurse, unable to start line for patient. Lab was notified to draw labs. RN tried x 3 times at this time to start PIV, but unable. Dr. Rajan made aware and new order for Midline insertion received. Yasmine MORRISSEY lieutenant shift supervisor made aware.
[2020-03-26 20:04] LABS: BASOPHILS % (AUTO) 0.3 % (0.0-2.0); EOSINOPHILS # (AUTO) 0.2 K/uL (0.0-0.7); HEMOGLOBIN 9.5 g/dL (10.9-14.3); LYMPHOCYTES % (AUTO) 8.5 % (20.5-51.5); MEAN CORPUSCULAR HEMOGLOBIN 32.2 uug (24.7-32.8); MEAN CORPUSCULAR HGB CONC 34 g/dL (32.3-35.6); MEAN CORPUSCULAR VOLUME 95.1 fL (75.5-95.3); MONOCYTES # (AUTO) 0.5 K/uL (2.0-10.0); MONOCYTES % (AUTO) 4.5 % (0.0-11.0); NEUTROPHILS # (AUTO) 10.4 K/uL (1.8-8.9); NEUTROPHILS % (AUTO) 84.7 % (38.5-71.5); PLATELET COUNT (AUTO) 278 K/uL (179-408); RED BLOOD CELL COUNT(AUTO) 2.95 MIL/uL (3.63-4.92); WHITE BLOOD COUNT (AUTO) 12.3 K/uL (3.8-11.8)
[2020-03-26 20:15] LABS: CREATININE 1.3 mg/dL (0.6-1.3); POTASSIUM 5.1 mmol/L (3.5-5.1)
[2020-03-26 20:21] LABS: BILIRUBIN,DIRECT 0.1 mg/dL (0.0-0.2); BILIRUBIN,TOTAL 0.2 mg/dL (0.2-1.0); TOTAL PROTEIN, SERUM 6.7 g/dL (6.4-8.2)
--- NOTE | 2020-03-26 20:30 | NUR ---
ETA of midline insertion at 2300 per Nursing display fabrication supervisor.
--- NOTE | 2020-03-26 21:23 | NUR ---
Paged [employer] for panel call.
--- NOTE | 2020-03-26 21:31 | NUR ---
Paged [employer] for panel call. Dr Maloney is MD cost reduction engineer, awaiting call back.
--- NOTE | 2020-03-26 22:00 | NUR ---
Dr. Maloney admitted pt Med Surg. Dx: Wound Infection. Pt will be going to [id number] per orthopedic specialist.
--- NOTE | 2020-03-26 22:30 | NUR ---
Midline [employer] TECHNOLOGY RISK INTERN with patient. Report given to Lili MORRISSEY
--- NOTE | 2020-03-26 22:45 | NUR ---
Dr Maloney called back stating that Dr. Praneeth Waller will be the admitting doctor. Awaiting callback from Dr. Deondre Waller.
--- NOTE | 2020-03-26 22:55 | NUR ---
Dr. Rajan panel call with Dr. Deondre Waller.
--- NOTE | 2020-03-26 23:00 | NUR ---
Received new orders from Dr. Shay Waller, noted. MEdication reconcilliation reviewed, all home meds continued as indicated. Lili MORRISSEY given updates. Pt still being admitted to [facility] Dx: Cellulitis.
--- NOTE | 2020-03-26 23:40 | NUR ---
Transferred pt to Room 316 via stretcher. All belongings with patient, list reviewed and signed by patient. Warm handoff to Lili Moss and Cirilo Costello DC from Er in stable condition.
[2020-03-26 23:44] VITALS: BP 102/51
--- NOTE | 2020-03-26 23:45 | NUR ---
Admitted 49 y/o Female under the care of Dr. Waller. Dx: Cellulitis of 2nd (R) toe. Patient is A&Ox4. No SOB. No complaints of pain at this time. (R)UA midline intact and patent. Oriented patient to her room and w/ the use of call light. Admission protocol initiated. Body assessment done. Safety measures implemented. Call light in reach
[2020-03-27] MEDS ORDERED: DOSING BY PHARMACY-MD TO SPECIFY MED/ROUTE XX PRN (01:30)
[2020-03-27] MEDS ORDERED: IBUPROFEN 400 MG TABLET PO PRN ×2 (01:30→14:30)
[2020-03-27] MEDS ORDERED: PIPERACILLIN SODIUM/TAZOBACTAM 3.375 G in IV DEXTROSE 5% 50 ML IV ONE (01:45)
[2020-03-27] MEDS ORDERED: VANCOMYCIN IV 1,500 MG in IV DEXTROSE 5% 500 ML IV ONE (01:45)
[2020-03-27] MEDS: IV NS 1000 ML 1,000 ML IV PRN ×2 (01:52→17:29)
[2020-03-27] MEDS ORDERED: PIPERACILLIN/TAZOBACTAM/D5W 50 ML IV ONE (01:57)
[2020-03-27 05:23] VITALS: BP 113/70
[2020-03-27] MEDS: BLOOD SUGAR DIAGNOSTIC 1 EACH STRIP VI SCH ×4 (06:39→21:11)
--- NOTE | 2020-03-27 06:43 | NUR ---
Patient slept well. No SOB noted. No complaints of pain. Midline on POLA intact and patent w/ IVF infusing. All needs attended. Will endorse accordingly
[2020-03-27] MEDS ORDERED: ALBUTEROL SULFATE 8 GM HFA.AER.AD IH PRN (06:45)
[2020-03-27 06:46] LABS: BASOPHILS # (AUTO) 0.1 K/uL (0.0-8.0); BASOPHILS % (AUTO) 0.6 % (0.0-2.0); EOSINOPHILS # (AUTO) 0.4 K/uL (0.0-0.7); EOSINOPHILS % (AUTO) 3.2 % (0.0-7.0); HEMATOCRIT 26.9 % (31.2-41.9); HEMOGLOBIN 9.4 g/dL (10.9-14.3); LYMPHOCYTES # (AUTO) 1.6 K/uL (20.0-40.0); LYMPHOCYTES % (AUTO) 14.5 % (20.5-51.5); MEAN CORPUSCULAR HEMOGLOBIN 33.1 uug (24.7-32.8); MEAN CORPUSCULAR HGB CONC 35 g/dL (32.3-35.6); MEAN CORPUSCULAR VOLUME 94.9 fL (75.5-95.3); MONOCYTES # (AUTO) 0.7 K/uL (2.0-10.0); MONOCYTES % (AUTO) 6.5 % (0.0-11.0); NEUTROPHILS # (AUTO) 8.2 K/uL (1.8-8.9); NEUTROPHILS % (AUTO) 75.2 % (38.5-71.5); PLATELET COUNT (AUTO) 279 K/uL (179-408); RED BLOOD CELL COUNT(AUTO) 2.84 MIL/uL (3.63-4.92)
[2020-03-27 06:58] LABS: CREATININE 1.2 mg/dL (0.6-1.3)
[2020-03-27] MEDS ORDERED: ALBUTEROL SULFATE 2.5 MG/3 ML NEBU NEB PRN (07:00)
[2020-03-27] MEDS: PANTOPRAZOLE SODIUM 40 MG TABLET.DR PO SCH (07:00)
[2020-03-27] MEDS ORDERED: HOME MED MISCELLANEOUS XX SCH ×3 (07:15→09:30)
[2020-03-27] MEDS ORDERED: ONDANSETRON HCL 4 MG TABLET PO PRN (07:15)
[2020-03-27] MEDS: METFORMIN HCL 500 MG TABLET PO SCH ×2 (08:00→17:44)
[2020-03-27] MEDS: GABAPENTIN 400 MG CAPSULE PO SCH ×4 (08:46→20:42)
[2020-03-27] MEDS: SERTRALINE HCL 50 MG TABLET PO SCH (08:46)
[2020-03-27] MEDS: ASCORBIC ACID 500 MG TABLET PO SCH (08:46)
[2020-03-27] MEDS: predniSONE 10 MG TABLET PO SCH (08:46)
[2020-03-27] MEDS: FOLIC ACID 1 MG TABLET PO SCH (08:46)
[2020-03-27] MEDS: MULTIVIT, IRON, MIN NO. 8, FA TABLET PO SCH (08:46)
[2020-03-27] MEDS: SIMETHICONE 80 MG TAB.CHEW PO PRN ×3 (08:46→21:14)
[2020-03-27] MEDS: FERROUS SULFATE 325 MG TABEC PO SCH ×3 (08:47→17:28)
[2020-03-27] MEDS: POLYVINYL ALCOHOL OPHT DROPS 15 ML BOTTLE EACHEYE SCH ×2 (08:47→17:28)
[2020-03-27] MEDS ORDERED: predniSONE 20 MG TABLET PO SCH (09:00)
[2020-03-27] MEDS ORDERED: Medication Not On Formulary EA (Cranberry Extract (Cranberry) 250 MG) PO SCH (09:00)
[2020-03-27] MEDS: LISINOPRIL 5 MG TABLET PO SCH (09:03)
[2020-03-27] MEDS: INSULIN GLARGINE,HUM 300 UNITS/3 ML CARTRIDGE SQ SCH (09:05)
[2020-03-27 09:06] VITALS: BP 120/64
--- NOTE | 2020-03-27 09:38 | NUR ---
PHARMACY CLINICAL NOTES (VANCOMCYIN DOSING) S: To continue vanco dosing for this 49 YO female for cellulitis O: BUN/SCR 08/13.2, WBC 11, TEMP 98 ht 167 cm wt 101.7 kg A/P: Patient received vanco 1gm IVPB x1 on 03/26 at 2230 in ED. Will start vanco 1500 mg IVPB q20h for predicted vanco trough level of 15 mcg/ml at stead state. 1st dose today at 1500. Will order trough before 4th scheduled dose (not ordered yet), or adjust if renal function or condition were to change. Will follow
[2020-03-27] MEDS ORDERED: DEXTROSE 50% 50 ML DISP.SYRIN IV PRN (11:30)
[2020-03-27] MEDS: SILVER SULFADIAZINE 1% CREAM 50 GM TP SCH ×2 (11:38→20:43)
[2020-03-27] MEDS: HYDROXYCHLOROQUINE SULFATE 200 MG TABLET PO SCH (11:39)
[2020-03-27] MEDS: PIPERACILLIN SODIUM/TAZOBACTAM 3.375 G in IV DEXTROSE 5% 50 ML IV SCH ×2 (11:40→17:27)
[2020-03-27] MEDS: INSULIN REGULAR, HUMAN 300 UNIT/3 ML VIAL SQ PRN ×2 (11:56→18:23)
[2020-03-27] MEDS ORDERED: LACTULOSE 20 G/30 ML LIQUID UDC PO PRN (14:30)
[2020-03-27] MEDS: diphenhydrAMINE 25 MG CAP PO PRN ×2 (14:50→21:14)
[2020-03-27] MEDS: DOCUSATE SODIUM 100 MG CAPSULE PO SCH ×2 (14:50→20:38)
[2020-03-27] MEDS: VANCOMYCIN IV 1,500 MG in IV DEXTROSE 5% 500 ML IV SCH (14:50)
[2020-03-27] MEDS: IBUPROFEN 800 MG TABLET PO PRN ×2 (14:51→21:14)
[2020-03-27] MEDS: CALCIUM CARBONATE 500 MG TAB.CHEW PO PRN ×2 (14:51→21:14)
[2020-03-27] MEDS ORDERED: VANCOMYCIN IV 1,500 MG in IV DEXTROSE 5% 500 ML IV SCH (15:00)
--- NOTE | 2020-03-27 15:04 | NUR ---
WOUND CARE CONSULT: REVIEWED CHART, NURSING DOCUMENTATION AND PHOTOS WHICH SHOW SURGICAL SITE TO RT SECOND TOE, PRESENT ON ADMISSION. CURRENT BIRD SCORE IS 20. DR BETTENCOURT/MARIA E NOTIFIED OF DPM CONSULT. WILL SEE PRN.
[2020-03-27 15:37] VITALS: BP 149/78
[2020-03-27] MEDS: ACETAMINOPHEN ES 500 MG TABLET PO PRN (17:28)
[2020-03-27 20:06] VITALS: BP 134/72
[2020-03-27] MEDS: LATANOPROST OPHT DROP 2.5 ML BOTTLE EACHEYE SCH (20:37)
[2020-03-27] MEDS: CEFTRIAXONE 1 G in IV DEXTROSE 5% 50 ML IV SCH (20:37)
[2020-03-27] MEDS: ATORVASTATIN 40 MG TABLET PO SCH (20:38)
[2020-03-28] MEDS: INSULIN GLARGINE,HUM 300 UNITS/3 ML CARTRIDGE SQ SCH ×3 (01:12→21:38)
--- NOTE | 2020-03-28 03:59 | NUR ---
Received patient resting in bed no signs or symptoms of distress, no SOB on RA, denies any pain at the moment. Patient is AxOx4, makes needs known. All medications due taken as tolerable. Accucheck 130 Lantus 30 units and no coverage with insulin gave bedtime snacks. No signs or symptoms of hypo/hyperglycemia noted. Skin intact, IV POLA Midline intact running NS @75cclhr, antibiotics administered no side affects noted. New orders for wound consult right second toe partial amputation: collected wound culture sent to lab. Treatment is Dakin's irrigation Betadine soak gauze and wrap with Kerlix. Administered Motrin, simethicone, Tums, and Benadryl as per requested by patient. All needs attended to, all items with patient reach. safety precautions in place. Will continue to monitor.
[2020-03-28 05:05] VITALS: BP 140/64
[2020-03-28] MEDS: PANTOPRAZOLE SODIUM 40 MG TABLET.DR PO SCH (06:13)
[2020-03-28] MEDS: IBUPROFEN 800 MG TABLET PO PRN ×2 (06:13→17:07)
[2020-03-28] MEDS: BLOOD SUGAR DIAGNOSTIC 1 EACH STRIP VI SCH ×4 (07:07→21:31)
--- NOTE | 2020-03-28 07:09 | NUR ---
Patient slept through the night, no complaints, vitals stable. Will continue to monitor. . Morning accucheck 74, provided apple juice, will endorse AM nurse to recheck blood sugar. No signs of hypoglycemia noted. Patient requested Motrin for pain, administered. Will endorse report to next shift.
[2020-03-28] MEDS: GABAPENTIN 400 MG CAPSULE PO SCH ×4 (08:48→20:30)
[2020-03-28] MEDS: METFORMIN HCL 500 MG TABLET PO SCH ×2 (08:49→17:14)
[2020-03-28] MEDS: diphenhydrAMINE 25 MG CAP PO PRN ×2 (08:57→17:07)
[2020-03-28] MEDS: MULTIVIT, IRON, MIN NO. 8, FA TABLET PO SCH (08:57)
[2020-03-28] MEDS: FOLIC ACID 1 MG TABLET PO SCH (08:57)
[2020-03-28] MEDS: DOCUSATE SODIUM 100 MG CAPSULE PO SCH ×2 (08:57→20:30)
[2020-03-28] MEDS: ASCORBIC ACID 500 MG TABLET PO SCH (08:58)
[2020-03-28] MEDS: SIMETHICONE 80 MG TAB.CHEW PO PRN ×2 (08:58→17:14)
[2020-03-28] MEDS: SERTRALINE HCL 50 MG TABLET PO SCH (08:58)
[2020-03-28] MEDS: LISINOPRIL 5 MG TABLET PO SCH (08:59)
[2020-03-28] MEDS: FERROUS SULFATE 325 MG TABEC PO SCH ×3 (08:59→17:07)
[2020-03-28] MEDS: SILVER SULFADIAZINE 1% CREAM 50 GM TP SCH (09:00)
[2020-03-28] MEDS: POLYVINYL ALCOHOL OPHT DROPS 15 ML BOTTLE EACHEYE SCH ×2 (09:00→17:07)
--- NOTE | 2020-03-28 09:00 | NUR ---
Silver sulfadiazine not given, will clarify order with .
[2020-03-28] MEDS: predniSONE 10 MG TABLET PO SCH (09:01)
[2020-03-28] MEDS: HYDROXYCHLOROQUINE SULFATE 200 MG TABLET PO SCH (09:43)
[2020-03-28] MEDS: INSULIN REGULAR, HUMAN 300 UNIT/3 ML VIAL SQ PRN ×3 (09:45→21:38)
--- NOTE | 2020-03-28 10:31 | NUR ---
PHARMACY CLINICAL NOTES (VANCOMCYIN DOSING) S: To continue vanco dosing for this 49 YO female for cellulitis O: BUN/SCR 11/1.2 (03/27) , WBC 11 (03/27), TEMP 98.3 ht 167 cm wt 101.7 kg A/P: Will continue same dose of vanco 1500 mg IVPB q20h for predicted vanco trough level of 15 mcg/ml at stead state. 2nd dose today at 1100. Will order trough before 4th scheduled dose (not ordered yet), or adjust if renal function or condition were to change. Will follow
[2020-03-28] MEDS: SODIUM HYPOCHLORITE 0.125% 473 ML BOTTLE TP SCH (10:32)
[2020-03-28 10:44] LABS: BASOPHILS # (AUTO) 0.1 K/uL (0.0-8.0); BASOPHILS % (AUTO) 0.7 % (0.0-2.0); EOSINOPHILS # (AUTO) 0.7 K/uL (0.0-0.7); HEMATOCRIT 27.7 % (31.2-41.9); HEMOGLOBIN 9.4 g/dL (10.9-14.3); LYMPHOCYTES # (AUTO) 2.2 K/uL (20.0-40.0); LYMPHOCYTES % (AUTO) 24.4 % (20.5-51.5); MEAN CORPUSCULAR HEMOGLOBIN 32.6 uug (24.7-32.8); MEAN CORPUSCULAR HGB CONC 34 g/dL (32.3-35.6); MEAN CORPUSCULAR VOLUME 96.1 fL (75.5-95.3); MONOCYTES # (AUTO) 0.8 K/uL (2.0-10.0); MONOCYTES % (AUTO) 8.7 % (0.0-11.0); NEUTROPHILS # (AUTO) 5.3 K/uL (1.8-8.9); NEUTROPHILS % (AUTO) 58.2 % (38.5-71.5); PLATELET COUNT (AUTO) 271 K/uL (179-408); RED BLOOD CELL COUNT(AUTO) 2.88 MIL/uL (3.63-4.92); WHITE BLOOD COUNT (AUTO) 9.2 K/uL (3.8-11.8)
[2020-03-28 10:56] LABS: CREATININE 1.1 mg/dL (0.6-1.3); MAGNESIUM 1.7 mg/dL (1.8-2.4); PHOSPHOROUS 3.8 mg/dL (2.5-4.9); POTASSIUM 4.4 mmol/L (3.5-5.1)
[2020-03-28 11:08] LABS: IRON, SERUM 128 ug/dL (50-175)
[2020-03-28] MEDS: IV NS 1000 ML 1,000 ML IV PRN (11:14)
[2020-03-28] MEDS: VANCOMYCIN IV 1,500 MG in IV DEXTROSE 5% 500 ML IV SCH (11:14)
[2020-03-28 11:30] VITALS: BP 141/79
[2020-03-28] MEDS: MAGNESIUM CHLORIDE 64 MG TABLET.SA PO SCH (12:19)
[2020-03-28 12:29] LABS: BASOPHILS % (MANUAL) 1 % (0-2); EOSINOPHILS % (MANUAL) 6 % (0-8); LYMPHOCYTES % (MANUAL) 22 % (20-40); METAMYELOCYTES % 1 % (0-1); MONOCYTES % (MANUAL) 7 % (2-10); MYELOCYTES % 3 % (0-0); NEUTROPHILS % (MANUAL) 60 % (42-75)
[2020-03-28] MEDS: ACETAMINOPHEN ES 500 MG TABLET PO PRN (12:56)
[2020-03-28 16:00] VITALS: BP 136/63
[2020-03-28] MEDS: CALCIUM CARBONATE 500 MG TAB.CHEW PO PRN (17:07)
[2020-03-28] MEDS: CEFTRIAXONE 1 G in IV DEXTROSE 5% 50 ML IV SCH (20:29)
[2020-03-28 20:30] VITALS: BP 134/72
[2020-03-28] MEDS: ATORVASTATIN 40 MG TABLET PO SCH (20:30)
[2020-03-28] MEDS: LATANOPROST OPHT DROP 2.5 ML BOTTLE EACHEYE SCH (21:01)
--- NOTE | 2020-03-28 23:49 | NUR ---
Received pt in bed and eating snacks. AAO x4. No acute distress noted. Denies pain/ discomfort. Pt lab result came out COVID (-). Accucheck 135, insulin coverage given as per sliding scale. POLA midline infusing NS @75 cc/ hr. Safety measures maintained. Call light and personal items within reach. Will continue to monitor.
[2020-03-29] MEDS: CALCIUM CARBONATE 500 MG TAB.CHEW PO PRN ×4 (01:09→20:28)
[2020-03-29] MEDS: diphenhydrAMINE 25 MG CAP PO PRN ×3 (01:10→15:57)
[2020-03-29] MEDS: IBUPROFEN 800 MG TABLET PO PRN ×2 (01:10→12:01)
[2020-03-29] MEDS: SIMETHICONE 80 MG TAB.CHEW PO PRN ×4 (01:10→20:27)
[2020-03-29] MEDS: VANCOMYCIN IV 1,500 MG in IV DEXTROSE 5% 500 ML IV SCH ×2 (04:41→22:30)
[2020-03-29] MEDS: PANTOPRAZOLE SODIUM 40 MG TABLET.DR PO SCH (06:08)
[2020-03-29 06:34] VITALS: BP 125/56
[2020-03-29] MEDS: BLOOD SUGAR DIAGNOSTIC 1 EACH STRIP VI SCH ×4 (06:37→20:22)
[2020-03-29] MEDS: FERROUS SULFATE 325 MG TABEC PO SCH ×3 (08:25→16:54)
[2020-03-29] MEDS: FOLIC ACID 1 MG TABLET PO SCH (08:25)
[2020-03-29] MEDS: DOCUSATE SODIUM 100 MG CAPSULE PO SCH ×2 (08:25→20:06)
[2020-03-29] MEDS: GABAPENTIN 400 MG CAPSULE PO SCH ×4 (08:25→20:06)
[2020-03-29] MEDS: MULTIVIT, IRON, MIN NO. 8, FA TABLET PO SCH (08:25)
[2020-03-29] MEDS: predniSONE 10 MG TABLET PO SCH (08:26)
[2020-03-29] MEDS: METFORMIN HCL 500 MG TABLET PO SCH ×2 (08:26→17:05)
[2020-03-29] MEDS: SERTRALINE HCL 50 MG TABLET PO SCH (08:26)
[2020-03-29] MEDS: HYDROXYCHLOROQUINE SULFATE 200 MG TABLET PO SCH (08:26)
[2020-03-29] MEDS: ASCORBIC ACID 500 MG TABLET PO SCH (08:26)
[2020-03-29] MEDS: SODIUM HYPOCHLORITE 0.125% 473 ML BOTTLE TP SCH (08:31)
[2020-03-29] MEDS: LISINOPRIL 5 MG TABLET PO SCH (08:32)
[2020-03-29] MEDS: MAGNESIUM CHLORIDE 64 MG TABLET.SA PO SCH (08:32)
[2020-03-29] MEDS: INSULIN REGULAR, HUMAN 300 UNIT/3 ML VIAL SQ PRN ×2 (08:38→12:04)
[2020-03-29] MEDS: INSULIN GLARGINE,HUM 300 UNITS/3 ML CARTRIDGE SQ SCH ×2 (08:41→22:37)
--- NOTE | 2020-03-29 08:59 | NUR ---
PHARMACY CLINICAL NOTES (VANCOMCYIN DOSING) S: To continue vanco dosing for this 49 YO female for cellulitis O: BUN/SCR 11/1.1 (03/28) , WBC 9.2 (03/28), TEMP 98 ht 167 cm wt 101.7 kg A/P: Will continue same dose of vanco 1500 mg IVPB q18h for predicted vanco trough level of 15.7 mcg/ml at stead state. 3rd dose tonight at 2300. Will order trough before 4th scheduled dose (ordered for 03/30 at 1630). Pharmacy shall review the level when available & adjust the dose if needed. Will follow
[2020-03-29] MEDS: POLYVINYL ALCOHOL OPHT DROPS 15 ML BOTTLE EACHEYE SCH ×2 (09:54→16:56)
[2020-03-29] MEDS: IV NS 1000 ML 1,000 ML IV PRN (09:56)
[2020-03-29 12:00] VITALS: BP 120/71
--- NOTE | 2020-03-29 16:10 | NUR ---
Pt received, no acute distress, no pain, or SOB. VSS. Pt compliant with routine medication administration. Benadryl and Tums requested and administered per PRN orders. Pt able to make needs known. AAOx3. Pt seen by MD for Debridement of right 2nd toe, consent signed and placed in chart. New wound photos taken and placed in the chart. All comfort and fall precautions implemented. Call light within reach, will continue to monitor for safety.
[2020-03-29 16:34] VITALS: BP 144/73
[2020-03-29] MEDS: ACETAMINOPHEN ES 500 MG TABLET PO PRN (17:03)
--- NOTE | 2020-03-29 19:00 | NUR ---
Patient in bed, awake alertx4. Patient denies any acute distress or pain. Patient's IV is intact and patent. Patient's vitals are stable. Wound dressing on R. foot shows no drainage. Safety measures in place. Bed low and locked in position. Call light within reach. Will continue with the plan of care.
[2020-03-29] MEDS: ATORVASTATIN 40 MG TABLET PO SCH (20:06)
[2020-03-29] MEDS: CEFTRIAXONE 1 G in IV DEXTROSE 5% 50 ML IV SCH (20:06)
[2020-03-29] MEDS: LATANOPROST OPHT DROP 2.5 ML BOTTLE EACHEYE SCH (20:07)
[2020-03-29 20:24] VITALS: BP 129/71
[2020-03-30] MEDS: diphenhydrAMINE 25 MG CAP PO PRN ×3 (02:01→16:11)
[2020-03-30] MEDS: IV NS 1000 ML 1,000 ML IV PRN ×2 (02:02→15:24)
[2020-03-30 04:23] VITALS: BP 147/75
[2020-03-30] MEDS: BLOOD SUGAR DIAGNOSTIC 1 EACH STRIP VI SCH ×4 (06:41→21:13)
[2020-03-30] MEDS: PANTOPRAZOLE SODIUM 40 MG TABLET.DR PO SCH (06:41)
--- NOTE | 2020-03-30 06:47 | NUR ---
Patient slept throughout the night. Patient is awake and denies any acute distress or pain. Patients vitals are stable. IV is intact. Wound dressing on the R foot is dry, intact and no drainage noted. Prescribed medications were given, patient was compliant. Comfort care and needs attended. Patient's am glucose is 79, offered snacks. Safety measures in place. Will endorse to the oncoming nurse accordingly.
--- NOTE | 2020-03-30 07:45 | NUR ---
Patient in bed, awake, alert and verbally responsive. No signs of distress noted. No SOB. No complain of Pain or discomfort noted. No signs of Hyper/Hypoglycemia. Recent BS is 79. Kept clean and comfortable. Will continue to monitor.
[2020-03-30] MEDS: DOCUSATE SODIUM 100 MG CAPSULE PO SCH ×2 (08:06→21:02)
[2020-03-30] MEDS: METFORMIN HCL 500 MG TABLET PO SCH ×2 (08:06→17:38)
[2020-03-30] MEDS: GABAPENTIN 400 MG CAPSULE PO SCH ×4 (08:06→21:02)
[2020-03-30] MEDS: predniSONE 10 MG TABLET PO SCH (08:06)
[2020-03-30] MEDS: SIMETHICONE 80 MG TAB.CHEW PO PRN ×3 (08:07→21:01)
[2020-03-30] MEDS: CALCIUM CARBONATE 500 MG TAB.CHEW PO PRN ×3 (08:07→21:02)
[2020-03-30] MEDS: MULTIVIT, IRON, MIN NO. 8, FA TABLET PO SCH (08:07)
[2020-03-30] MEDS: FOLIC ACID 1 MG TABLET PO SCH (08:07)
[2020-03-30] MEDS: FERROUS SULFATE 325 MG TABEC PO SCH ×3 (08:07→16:11)
[2020-03-30] MEDS: ASCORBIC ACID 500 MG TABLET PO SCH (08:07)
[2020-03-30] MEDS: SERTRALINE HCL 50 MG TABLET PO SCH (08:07)
[2020-03-30] MEDS: IBUPROFEN 800 MG TABLET PO PRN ×2 (08:56→17:38)
[2020-03-30] MEDS: MAGNESIUM CHLORIDE 64 MG TABLET.SA PO SCH (08:56)
[2020-03-30] MEDS: HYDROXYCHLOROQUINE SULFATE 200 MG TABLET PO SCH (08:56)
[2020-03-30] MEDS: POLYVINYL ALCOHOL OPHT DROPS 15 ML BOTTLE EACHEYE SCH ×2 (08:57→17:14)
[2020-03-30] MEDS: SODIUM HYPOCHLORITE 0.125% 473 ML BOTTLE TP SCH (09:00)
[2020-03-30] MEDS: INSULIN GLARGINE,HUM 300 UNITS/3 ML CARTRIDGE SQ SCH ×2 (09:13→21:22)
[2020-03-30] MEDS: LISINOPRIL 5 MG TABLET PO SCH (09:41)
--- NOTE | 2020-03-30 11:43 | NUR ---
PHARMACY CLINICAL NOTES (VANCOMCYIN DOSING) S: To continue vanco dosing for this 49 YO female for cellulitis O: BUN/SCR 11/1.1 (03/28) , WBC 9.2 (03/28), TEMP 98.4 ht 167 cm wt 101.7 kg A/P: Will continue same dose of vanco 1500 mg IVPB q18h for predicted vanco trough level of 15.7 mcg/ml at stead state. 3rd dose given last night at 2300. Will order trough before 4th scheduled dose (ordered for today at 1630). Pharmacy shall review the level when available & adjust the dose if needed. Will follow
[2020-03-30 11:50] VITALS: BP 123/61
[2020-03-30] MEDS: ACETAMINOPHEN ES 500 MG TABLET PO PRN (12:19)
[2020-03-30 16:43] VITALS: BP 130/61
[2020-03-30] MEDS: INSULIN REGULAR, HUMAN 300 UNIT/3 ML VIAL SQ PRN ×2 (16:48→21:18)
--- NOTE | 2020-03-30 18:15 | NUR ---
Patient in bed, awake, alert and verbally responsive. No signs of distress noted. Afebrile. Ibuprofen 800 mg x2 given for Right foot 2nd toe pain. Last Blood sugar 225, 4 units insulin given per sliding scale. Wound treatment done on right 2nd toe cellulitis. kept clean and comfortable. Will endorse to Oncoming Nurse.
--- NOTE | 2020-03-30 19:30 | NUR ---
Patient in bed, awake alert x4. Patient denies any acute distress or pain. Wound dressing on R. foot intact and no drainage noted. VS stable. Safety measures in place. Call light within reach. Will continue with the plan of care.
[2020-03-30 20:00] VITALS: BP 120/81
[2020-03-30] MEDS: ATORVASTATIN 40 MG TABLET PO SCH (21:01)
[2020-03-30] MEDS: CEFTRIAXONE 1 G in IV DEXTROSE 5% 50 ML IV SCH (21:03)
[2020-03-30] MEDS: LATANOPROST OPHT DROP 2.5 ML BOTTLE EACHEYE SCH (21:03)
[2020-03-31] VITALS: BP 128/76
[2020-03-31 04:00] VITALS: BP 126/67
[2020-03-31] MEDS: IV NS 1000 ML 1,000 ML IV PRN (05:24)
[2020-03-31] MEDS: PANTOPRAZOLE SODIUM 40 MG TABLET.DR PO SCH (06:35)
[2020-03-31] MEDS: BLOOD SUGAR DIAGNOSTIC 1 EACH STRIP VI SCH ×2 (06:43→11:33)
--- NOTE | 2020-03-31 06:47 | NUR ---
Patient's blood sugar is 53, Asymptomatic of any diabetic crisis. Patient was offered snacks. Will continue to monitor.
--- NOTE | 2020-03-31 07:01 | NUR ---
Patient slept through the night. Patient is awake, denies any acute distress or pain. Patients vitals stable. Patients wound dressing on R. toe is intact and no drainage noted. Due medications given, patient tolerated. Comfort care and needs attended. Safety measures in place. Bed low and locked in position. Will endorse to the oncoming nurse accordingly.
--- NOTE | 2020-03-31 07:15 | NUR ---
Rechecked patient's blood sugar, now 114. Morning RN aware.
[2020-03-31] MEDS: METFORMIN HCL 500 MG TABLET PO SCH (08:24)
[2020-03-31] MEDS: GABAPENTIN 400 MG CAPSULE PO SCH ×2 (08:24→11:46)
[2020-03-31] MEDS: predniSONE 10 MG TABLET PO SCH (08:25)
[2020-03-31] MEDS: DOCUSATE SODIUM 100 MG CAPSULE PO SCH (08:28)
[2020-03-31] MEDS: SERTRALINE HCL 50 MG TABLET PO SCH (08:28)
[2020-03-31] MEDS: FOLIC ACID 1 MG TABLET PO SCH (08:28)
[2020-03-31] MEDS: ASCORBIC ACID 500 MG TABLET PO SCH (08:28)
[2020-03-31] MEDS: HYDROXYCHLOROQUINE SULFATE 200 MG TABLET PO SCH (08:28)
[2020-03-31] MEDS: FERROUS SULFATE 325 MG TABEC PO SCH ×2 (08:28→12:28)
[2020-03-31] MEDS: MULTIVIT, IRON, MIN NO. 8, FA TABLET PO SCH (08:28)
[2020-03-31] MEDS: MAGNESIUM CHLORIDE 64 MG TABLET.SA PO SCH (08:29)
[2020-03-31] MEDS: LISINOPRIL 5 MG TABLET PO SCH (08:29)
--- NOTE | 2020-03-31 08:40 | NUR ---
Patient in bed, awake and verbally responsive. No sign of distress noted. afebrile. Recent Blood Sugar is 114. No complain or discomfort at this time. Kept clean and comfortable. Will continue to monitor.
[2020-03-31] MEDS: POLYVINYL ALCOHOL OPHT DROPS 15 ML BOTTLE EACHEYE SCH (09:20)
[2020-03-31] MEDS: SODIUM HYPOCHLORITE 0.125% 473 ML BOTTLE TP SCH (09:20)
[2020-03-31] MEDS: INSULIN GLARGINE,HUM 300 UNITS/3 ML CARTRIDGE SQ SCH (09:21)
[2020-03-31] MEDS: CALCIUM CARBONATE 500 MG TAB.CHEW PO PRN (09:26)
[2020-03-31] MEDS: IBUPROFEN 800 MG TABLET PO PRN (09:26)
[2020-03-31] MEDS: diphenhydrAMINE 25 MG CAP PO PRN (09:26)
[2020-03-31] MEDS: SIMETHICONE 80 MG TAB.CHEW PO PRN (11:46)
[2020-03-31 12:00] VITALS: BP 107/57
[2020-03-31] MEDS: ACETAMINOPHEN ES 500 MG TABLET PO PRN (13:01)
--- NOTE | 2020-03-31 14:00 | NUR ---
Patient with Order to discharge back to [facility], Discharge Instructions given and verbalized Understanding. Wound care Provided. All belongings was sent and signed by Patient. removed midline on POLA and Wrist band. Patient was Picked up by [facility] Transportation in stable condition.
== END 2020-03-31 14:00 | DRG 721 ==
LOC: ER 17:57 → MEDSURG3 22:09
PROVIDERS: ADMIT Internal Medicine Nephrology; ATTEND Internal Medicine Nephrology
DX: T81.49XA Infection following a procedure, other surgical site, initial encounter (principal); E11.42 Type 2 diabetes mellitus with diabetic polyneuropathy; E11.51 Type 2 diabetes mellitus with diabetic peripheral angiopathy without gangrene; E66.01 Morbid (severe) obesity due to excess calories; M86.8X7 Other osteomyelitis, ankle and foot; T87.43 Infection of amputation stump, right lower extremity; L03.115 Cellulitis of right lower limb; L03.031 Cellulitis of right toe; E11.65 Type 2 diabetes mellitus with hyperglycemia; Z79.4 Long term (current) use of insulin; Z88.2 Allergy status to sulfonamides; D72.829 Elevated white blood cell count, unspecified; D64.9 Anemia, unspecified; I10 Essential (primary) hypertension; Z68.36 Body mass index [BMI] 36.0-36.9, adult; T81.31XA Disruption of external operation (surgical) wound, not elsewhere classified, initial encounter; Y83.8 Other surgical procedures as the cause of abnormal reaction of the patient, or of later complication, without mention of misadventure at the time of the procedure; Y92.89 Other specified places as the place of occurrence of the external cause; M06.9 Rheumatoid arthritis, unspecified; E11.69 Type 2 diabetes mellitus with other specified complication; Z89.412 Acquired absence of left great toe; I25.10 Atherosclerotic heart disease of native coronary artery without angina pectoris; M79.7 Fibromyalgia
CPT/HCPCS: 36415; 70030-TC; 71045; 73630; 83550; 83735; 84100; 85025; 85651; 85730; 86140; 87040; 87070; A4663; A9150; G0378; J0696; J1815; J2543; J3370; J7030; J7060; J7512; Q0163; U0003-CS